=== PATIENT | male | born 1975 | race Hispanic/Latino ===

== ENCOUNTER 2018-11-29 13:02 | Inpatient (IN) | payer BC ==
[2018-11-29 16:14] LABS: Absolute Lymphocytes (CBC) 1.2 K/uL (0.7-4.9); Absolute Monocytes 0.8 K/uL (0.1-1.3); Absolute Neutrophil 9.4 K/uL (1.8-8.0); Basophils % 0.4 % (0-1.3); Eosinophils % 1.1 % (0-4.4); Lymphocytes % 10.6 % (15.3-44.8); MPV 10.6 fL (7.6-11.3); Monocytes % 7.1 % (3.3-12.3); RBC Red Blood Cell Count 4.26 M/uL (4.33-5.43)
[2018-11-29] MEDS ORDERED: HYDROCODONE/APAP 10/325 TAB ONE (16:16)
[2018-11-29] MEDS ORDERED: NA CHLORIDE 0.9% 1,000 ML ONE (16:16)
[2018-11-29 16:32] LABS: Albumin 2.7 g/dL (3.4-5.0); Bilirubin Direct 0.2 mg/dL (0-0.2); Bilirubin Total 0.4 mg/dL (0.2-1.0); Potassium 4.8 mmol/L (3.5-5.1); Protein, Total 7.5 g/dL (6.4-8.2)
--- NOTE | 2018-11-29 17:15 | ER ---
Nurse's Notes [facility] Name: Liu Boo Jr Age: 43 yrs Sex: Male : 1975 Arrival Date: 11/29/2018 Time: 13:04 Bed 18 Private MD: Johny Black Diagnosis: Cellulitis of right lower limb Presentation: 11/29 13:14 Presenting complaint: Patient states: I have an ulcer on my right foot and I see la1 for it. It has been ok but the last 2 days it has looked a lot worse with redness and swelling. Transition of care: patient was not received from another setting of care. Onset of symptoms was November 29, 2018. Risk Assessment: Do you want to hurt yourself or someone else? Patient reports no desire to harm self or others. Initial Sepsis Screen: Does the patient meet any 2 criteria? No. Patient's initial sepsis screen is negative. Does the patient have a suspected source of infection? No. Patient's initial sepsis screen is negative. Care prior to arrival: None. 13:14 Method Of Arrival: Ambulatory la1 13:14 Acuity: LUZ MARINA 3 la1 Historical: - Allergies: 13:15 No Known Allergies; la1 - PMHx: 13:15 Diabetes - NIDDM; la1 - Immunization history:: Adult Immunizations up to date. - Social history:: Smoking status: Patient/guardian denies using tobacco. - Ebola Screening: : No symptoms or risks identified at this time. Screenin:13 Abuse screen: Denies threats or abuse. Denies injuries from another. Nutritional aj1 screening: No deficits noted. Tuberculosis screening: No symptoms or risk factors identified. 18:30 Fall Risk None identified. aj1 Assessment: 15:13 General: Appears in no apparent distress. uncomfortable, Behavior is calm, cooperative, aj1 appropriate for age. Pain: Complains of pain in right foot Pain does not radiate. Pain currently is 7 out of 10 on a pain scale. Neuro: Level of Consciousness is awake, alert, obeys commands, Oriented to person, place, time, situation. Cardiovascular: Patient's skin is warm and dry. Respiratory: Airway is patent Respiratory effort is even, unlabored, Respiratory pattern is regular, symmetrical. GI: No signs and/or symptoms were reported involving the gastrointestinal system. : No signs and/or symptoms were reported regarding the genitourinary system. EENT: No signs and/or symptoms were reported regarding the EENT system. Derm: Skin is flushed, redness and swelling noted to right foot. Musculoskeletal: No signs and/or symptoms reported regarding the musculoskeletal system. Circulation, motion, and sensation intact. 16:10 Reassessment: Patient appears in no apparent distress at this time. No changes from aj1 previously documented assessment. Patient and/or family updated on plan of care and expected duration. Pain level reassessed. Patient is alert, oriented x 3, equal unlabored respirations, skin warm/dry/pink. 17:10 Reassessment: Patient appears in no apparent distress at this time. No changes from aj1 previously documented assessment. Patient and/or family updated on plan of care and expected duration. Pain level reassessed. Patient is alert, oriented x 3, equal unlabored respirations, skin warm/dry/pink. 18:08 Reassessment: Patient appears in no apparent distress at this time. No changes from aj1 previously documented assessment. Patient and/or family updated on plan of care and expected duration. Pain level reassessed. Patient is alert, oriented x 3, equal unlabored respirations, skin warm/dry/pink. Vital Signs: 13:15 BP 149 / 79; Pulse 110; Resp 16; Temp 98.0; Pulse Ox 98% on R/A; Weight 125.19 kg; la1 Height 5 ft. 10 in. (177.80 cm); 16:10 BP 132 / 79; Pulse 85; Resp 18; Pulse Ox 98% on R/A; aj1 17:15 BP 125 / 67; Pulse 88; Resp 18; Pulse Ox 99% on R/A; aj1 18:08 BP 127 / 64; Pulse 92; Resp 18; Pulse Ox 99% on R/A; aj1 13:15 Body Mass Index 39.60 (125.19 kg, 177.80 cm) la1 ED Course: 13:04 Patient arrived in ED. as 13:05 Johny Black MD is Private Physician. as 13:14 Triage completed. la1 13:15 Arm band placed on right wrist. la1 14:53 Liane Griffin RN is Primary Nurse. aj1 15:07 Chinmay Cifuentes NP is PHCP. pm1 15:07 Emanuel Shaffer MD is Attending Physician. pm1 15:13 Patient has correct armband on for positive identification. Bed in low position. Call aj1 light in reach. Side rails up X 1. 15:13 No provider procedures requiring assistance completed. aj1 15:45 First set of blood cultures drawn by me. kj1 15:58 Initial lab(s) drawn, by me, sent to lab. kj1 15:58 Inserted saline lock: 22 gauge in right antecubital area, using aseptic technique. kj1 16:15 Foot Right 3 View XRAY In Process Unspecified. EDMS 17:14 Marielle Monroe MD is Hospitalizing Provider. pm1 17:22 Hospitalizing Provider role handed off by Marielle Monroe MD pm1 17:22 Johny Black MD is Hospitalizing Provider. pm1 18:29 Report given to RICK Pop on 3rd floor. aj1 18:30 Patient admitted, IV remains in place. aj1 Administered Medications: 16:09 Drug: NS 0.9% 1000 ml Route: IV; Rate: 1000 ml; Site: right antecubital; aj1 18:04 Follow up: IV Status: Completed infusion; IV Intake: 1000ml aj1 16:09 Drug: [place] 10 mg-325 mg 1 tabs Route: PO; aj1 18:04 Follow up: Response: No adverse reaction aj1 18:04 Drug: vancoMYCIN 1 grams Route: IVPB; Infused Over: 2 hrs; Site: right antecubital; aj1 18:30 Follow up: IV Status: Infusion continued upon admission aj1 18:04 Drug: LevaQUIN 500 mg Route: PO; aj1 18:30 Follow up: Response: No adverse reaction aj1 Intake: 18:04 IV: 1000ml; Total: 1000ml. aj1 Outcome: 17:14 Decision to Hospitalize by Provider. pm1 18:31 Admitted to Tele accompanied by tech, via wheelchair, with chart. aj1 18:31 Condition: stable 18:31 Discharge instructions given to family, Instructed on the need for admit, Demonstrated understanding of instructions. 18:37 Patient left the ED. aj1 Signatures: Dispatcher [employer] EDMS Liane Griffin RN RN aj1 Lorri Friedman Lee, RN RN la1 Chinmay Cifuentes NP NAIL SPECIALIST pm1 Shabnam Redd kj1
--- NOTE | 2018-11-29 17:15 | EDPHYS ---
Physician Documentation [facility] Name: Liu Boo Jr Age: 43 yrs Sex: Male : 1975 Arrival Date: 11/29/2018 Time: 13:04 Bed 18 Private MD: Johny Black ED Physician Emanuel Shaffer HPI: 11/29 15:30 This 43 yrs old Male presents to ER via Ambulatory with complaints of Foot pm1 Pain - ulcer. 15:30 The patient presents with pain, that is acute, swelling. The complaints affect the pm1 dorsum of right foot. Context: The problem was sustained at home, resulted from an unknown cause, the patient can fully bear weight, the patient is able to ambulate, prior chronic right plantar ulcer for the past 1.5 years. Onset: The symptoms/episode began/occurred 2 day(s) ago. Modifying factors: The symptoms are alleviated by nothing. the symptoms are aggravated by nothing. Associated signs and symptoms: Pertinent negatives calf tenderness, fever. Treatment prior to arrival includes: no previous treatment. Severity of symptoms: in the emergency department the symptoms are actually worse. The patient has not experienced similar symptoms in the past. The patient has not recently seen a physician, the patient's primary care provider is Dr. Black. Saw Dr. Jc 1 month ago and told wound is improving, Has wound care here with Sofia. Patient with redness and swelling to the dorsum on his right foot and right second toe for the past 2 days. Denies trauma. Ulcer to plantar surface of right foot is not worse per patient. Historical: - Allergies: 13:15 No Known Allergies; la1 - PMHx: 13:15 Diabetes - NIDDM; la1 - Immunization history:: Adult Immunizations up to date. - Social history:: Smoking status: Patient/guardian denies using tobacco. - Ebola Screening: : No symptoms or risks identified at this time. ROS: 15:30 Constitutional: Negative for fever, chills, and weight loss, Eyes: Negative for injury, pm1 pain, redness, and discharge, ENT: Negative for injury, pain, and discharge, Neck: Negative for injury, pain, and swelling, Cardiovascular: Negative for chest pain, palpitations, and edema, Respiratory: Negative for shortness of breath, cough, wheezing, and pleuritic chest pain, Abdomen/GI: Negative for abdominal pain, nausea, vomiting, diarrhea, and constipation, Back: Negative for injury and pain, : Negative for injury, bleeding, discharge, and swelling. 15:30 Neuro: Negative for headache, weakness, numbness, tingling, and seizure. 15:30 MS/extremity: Positive for pain, swelling, of the dorsum of right foot. 15:30 Skin: Positive for erythema, swelling, of the dorsum of right foot. Exam: 15:30 Constitutional: This is a well developed, well nourished patient who is awake, alert, pm1 and in no acute distress. Head/Face: Normocephalic, atraumatic. Eyes: Pupils equal round and reactive to light, extra-ocular motions intact. Lids and lashes normal. Conjunctiva and sclera are non-icteric and not injected. Cornea within normal limits. Periorbital areas with no swelling, redness, or edema. ENT: Nares patent. No nasal discharge, no septal abnormalities noted. Tympanic membranes are normal and external auditory canals are clear. Oropharynx with no redness, swelling, or masses, exudates, or evidence of obstruction, uvula midline. Mucous membranes moist. Neck: Trachea midline, no thyromegaly or masses palpated, and no cervical lymphadenopathy. Supple, full range of motion without nuchal rigidity, or vertebral point tenderness. No Meningismus. Chest/axilla: Normal chest wall appearance and motion. Nontender with no deformity. No lesions are appreciated. Cardiovascular: Regular rate and rhythm with a normal S1 and S2. No gallops, murmurs, or rubs. Normal PMI, no JVD. No pulse deficits. Respiratory: Lungs have equal breath sounds bilaterally, clear to auscultation and percussion. No rales, rhonchi or wheezes noted. No increased work of breathing, no retractions or nasal flaring. Abdomen/GI: Soft, non-tender, with normal bowel sounds. No distension or tympany. No guarding or rebound. No evidence of tenderness throughout. Back: No spinal tenderness. No costovertebral tenderness. Full range of motion. 15:30 Skin: Appearance: normal except for affected area, cellulitis, on the dorsum of right foot, Redness, swelling, and warmth to distal aspect of dorsum of right foot and to right second toe. Mild blistering present to medial aspect of right second toe. Vital Signs: 13:15 BP 149 / 79; Pulse 110; Resp 16; Temp 98.0; Pulse Ox 98% on R/A; Weight 125.19 kg; la1 Height 5 ft. 10 in. (177.80 cm); 16:10 BP 132 / 79; Pulse 85; Resp 18; Pulse Ox 98% on R/A; aj1 17:15 BP 125 / 67; Pulse 88; Resp 18; Pulse Ox 99% on R/A; aj1 18:08 BP 127 / 64; Pulse 92; Resp 18; Pulse Ox 99% on R/A; aj1 13:15 Body Mass Index 39.60 (125.19 kg, 177.80 cm) la1 MDM: 15:10 Patient medically screened. [place] 17:04 Data reviewed: vital signs. Data interpreted: Pulse oximetry: on room air is 98 %. pm1 Interpretation: normal. 17:14 Counseling: I had a detailed discussion with the patient and/or guardian regarding: the pm1 historical points, exam findings, and any diagnostic results supporting the discharge/admit diagnosis, lab results, radiology results, the need for further work-up and treatment in the hospital. 17:19 Physician consultation: Marielle Monroe MD was contacted at 17:19, Sofia is taking his pm1 own patient's this weekend. 17:23 Physician consultation: Johny Black MD was called at 17:23, was contacted at 17:23, pm1 regarding admission, patient's condition, and will see patient tomorrow. 11/29 15:30 Order name: Basic Metabolic Panel; Complete Time: 16:38 pm1 11/29 15:30 Order name: Blood Culture Adult (2) pm1 11/29 15:30 Order name: CBC with Diff; Complete Time: 17:03 pm1 11/29 15:30 Order name: LFT's; Complete Time: 16:38 pm1 11/29 15:30 Order name: Procalcitonin; Complete Time: 17:52 pm1 11/29 15:30 Order name: Sed Rate; Complete Time: 17:03 pm1 11/29 15:30 Order name: Labs collected and sent; Complete Time: 15:55 pm1 11/29 15:30 Order name: Foot Right 3 View XRAY; Complete Time: 17:52 pm1 11/29 15:30 Order name: IV Saline Lock; Complete Time: 15:55 pm1 Administered Medications: 16:09 Drug: NS 0.9% 1000 ml Route: IV; Rate: 1000 ml; Site: right antecubital; aj1 18:04 Follow up: IV Status: Completed infusion; IV Intake: 1000ml aj1 16:09 Drug: [place] 10 mg-325 mg 1 tabs Route: PO; aj1 18:04 Follow up: Response: No adverse reaction aj1 18:04 Drug: vancoMYCIN 1 grams Route: IVPB; Infused Over: 2 hrs; Site: right antecubital; aj1 18:30 Follow up: IV Status: Infusion continued upon admission aj1 18:04 Drug: LevaQUIN 500 mg Route: PO; aj1 18:30 Follow up: Response: No adverse reaction aj1 Disposition: 11/29/18 17:14 Hospitalization ordered by Johny Black for Inpatient Admission. Preliminary diagnosis is Cellulitis of right lower limb. - Bed requested for Telemetry/MedSurg (Inpatient). - Status is Inpatient Admission. aj1 - Condition is Stable. - Problem is new. - Symptoms have improved. UTI on Admission? No Addendum: 12/01/2018 07:55 Co-signature as Attending Physician, Emanuel Shaffer MD I agree with the assessment and c marx plan of care. Signatures: Dispatcher [employer] EDMS Liane Griffin RN RN aj1 Emanuel Shaffer MD MD cha Attema, Lee, RN RN la1 Chinmay Cifuentes, COMPLAINT SUPERVISOR COMPLAINT SUPERVISOR pm1 Danica Parker Corrections: (The following items were deleted from the chart) 11/29 17:22 17:14 Hospitalization Ordered by Marielle Monroe MD for Inpatient Admission. Preliminary pm1 diagnosis is Cellulitis of right lower limb. Bed requested for Telemetry/MedSurg (Inpatient). Status is Inpatient Admission. Condition is Stable. Problem is new. Symptoms have improved. UTI on Admission? No. pm1 17:58 17:22 11/29/2018 17:14 Hospitalization Ordered by Johny Black MD for Inpatient eb Admission. Preliminary diagnosis is Cellulitis of right lower limb. Bed requested for Telemetry/MedSurg (Inpatient). Status is Inpatient Admission. Condition is Stable. Problem is new. Symptoms have improved. UTI on Admission? No. pm1 18:37 17:58 11/29/2018 17:14 Hospitalization Ordered by Johny Black MD for Inpatient aj1 Admission. Preliminary diagnosis is Cellulitis of right lower limb. Bed requested for Telemetry/MedSurg (Inpatient). Status is Inpatient Admission. Condition is Stable. Problem is new. Symptoms have improved. UTI on Admission? No. eb
[2018-11-29] MEDS ORDERED: VANCOMYCIN/NS 1 gm 1 GM/250 ML BAG IV ONE (17:30)
--- NOTE | 2018-11-29 17:49 | RAD REPORT ---
EXAM DESCRIPTION: RAD - Foot Right 3 View - 11/29/2018 4:17 pm CLINICAL HISTORY: Right foot pain and swelling, soft tissue wound COMPARISON: December 2017 FINDINGS: No acute fracture is identified. IP joint degenerative changes are present. Degenerative c hanges are present at the first and second MTP joints. There is subluxation of the second proximal ph alanx. Second toe soft tissue swelling is present. Air is present in the soft tissues. This is the pr esumed site of wound. Wound history was not otherwise defined. No foreign body in the soft tissues. N o destructive bone process seen. Midfoot degenerative changes are present. A small plantar spur is se en. IMPRESSION: Soft tissue swelling right second toe with air in the soft tissues. Bony degenerative change without destruction. Osteomyelitis can be present prior to radiographic bone destruction.
[2018-11-29] MEDS ORDERED: levoFLOXacin 500 MG TAB ONE (18:10)
[2018-11-29] MEDS ORDERED: GLUCAGON 1 MG/VIAL IM PRN (18:27)
[2018-11-29] MEDS ORDERED: D50W 25 GM/50 ML SYRINGE IV PRN (18:27)
[2018-11-29] MEDS: NA CHLORIDE 0.9% 1,000 ML IV SCH (19:27)
[2018-11-29 20:08] VITALS: BMI 39.6
[2018-11-29] MEDS: HYDROCODONE/APAP 5/325 MG TAB PO PRN (20:17)
[2018-11-29] MEDS: INSULIN -REGULAR HUMAN 50 UNIT/0.5 ML ML SQ SCH (21:00)
[2018-11-29] MEDS ORDERED: VANCOMYCIN/NS 1 gm 1 GM/250 ML BAG IVPB ONE (21:15)
[2018-11-29] MEDS ORDERED: VANCOMYCIN 1 GM/VIAL ONE (22:18)
[2018-11-29] MEDS ORDERED: NA CHLORIDE 0.9% 250 ML ONE (22:18)
[2018-11-30] MEDS: NA CHLORIDE 0.9% 1,000 ML IV SCH ×2 (05:01→14:27)
[2018-11-30] MEDS: HYDROCODONE/APAP 5/325 MG TAB PO PRN ×3 (05:01→21:11)
[2018-11-30] MEDS ORDERED: VANCOMYCIN 2 GM in NA CHLORIDE 0.9% 500 ML IVPB SCH (06:00)
[2018-11-30 06:17] LABS: Absolute Lymphocytes (CBC) 1.6 K/uL (0.7-4.9); Absolute Monocytes 0.5 K/uL (0.1-1.3); Absolute Neutrophil 4.5 K/uL (1.8-8.0); Basophils % 0.7 % (0-1.3); Hematocrit 33.6 % (39.6-49.0); Lymphocytes % 23.8 % (15.3-44.8); MPV 10.5 fL (7.6-11.3); Monocytes % 7.8 % (3.3-12.3); RBC Red Blood Cell Count 3.75 M/uL (4.33-5.43)
[2018-11-30 06:31] LABS: Potassium 4.4 mmol/L (3.5-5.1)
[2018-11-30] MEDS: INSULIN -REGULAR HUMAN 50 UNIT/0.5 ML ML SQ SCH ×4 (07:30→21:00)
[2018-11-30] MEDS: MUPIROCIN 2% OINT 22GM TUBE TOP SCH (12:31)
[2018-11-30] MEDS: GABAPENTIN 300 MG CAP PO SCH ×2 (13:18→21:11)
[2018-11-30 13:51] LABS: Urine Appearance CLEAR; Urine Bilirubin NEGATIVE (NEG); Urine Blood NEGATIVE (NEG); Urine Color YELLOW; Urine Glucose NEGATIVE (NEG); Urine Protein NEGATIVE (NEG); Urine Specific Gravity 1.015 (1.005-1.030); Urine pH 5.5 (5.0-7.0)
[2018-11-30 14:13] LABS: Urine Microscopic Reflex ORDER UMIC
[2018-11-30 14:16] LABS: Urine Bacteria <20 /HPF (NONE SEEN); Urine RBC NONE SEEN /HPF (NONE SEEN)
[2018-11-30 14:17] LABS: Urine Culture Reflex Order REFLEXED
--- NOTE | 2018-11-30 15:13 | PN ---
Date of Progress Note: 11/30/2018 The patient states he feels better today. Looking at his foot, he thinks it has gone down to some ex tent and certainly the pain is much better. Evaluation does seem to show some ecchymotic and celluli tic area of the toe and anterior part of the foot. We will add Bactrim to the regimen at this signif icant fractures. He had a run of ventricular tachycardia. He said he had some tachycardia night whe n he was vomiting, however, was not aware of this last episode. Cardiology was consulted and workup was in progress. HR/MODL Voice ID: [id number] Report ID: [id number]
--- NOTE | 2018-11-30 15:26 | PN ---
Entrance Complaint: Painful foot. History Of Present Illness: The patient has multiple problems with his foot with diabetic ulceration s requiring frequent hospitalizations, been seen in various Wound Centers, has been under care of [facility], and myself, was last seen in our Wound Center approximately a month ago, which time states he was doing okay. 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 Also it was okay and he had no discomfort until 2 days prior to this episode when he started the p roblem in his foot, which he felt may be a blister forming there that became red, increasing pain. Mir beck presented to the emergency room. Past Medical History: The patient has a long history of NIDDM, which has not been doing good control . However, he underwent a weight reduction surgery and lost over 80 pounds at which time he has done well with his blood sugars on diet and metformin. Also has a history of hypertension, which also marx s improved as well after the surgery. Social History: He states nonsmoker, nondrinker. Family History: Noncontributory. Physical Examination: General: Patient is a well-built middle-aged male in no acute distress with stable vital signs. Head And neck: Normocephalic. Pupils equal react to light and accommodation. Fundi negative. Trac hea midline. Thyroid not palpable. ENT negative. Chest: Clear to P and A. Cardiovascular: PMI midclavicular line. Heart: Sounds normal. Peripheral pulses are present and equal bilaterally. Abdomen: No organomegaly. Bowel sounds present. Extremities: All extremities normal except for the right lower foot, which shows an area of erythema approximately 2 inches distal to the toe, which shows an area of erythema and early blister formatio n on the second digit. Good motion. Rectal: Deferred. Impression: Cellulitis of the foot and toe, diabetic ulcer healing. Plan: Patient will be admitted since he has a long history of MRSA. He will be started on Levaquin and vancomycin, which he states has done some in the past, which has been successful. HR/MODL Voice ID: [id number] Report ID: [id number]
--- NOTE | 2018-11-30 15:43 | CON ---
Mr. Boo is 43. He came to the hospital, because his wound on his right foot seems to be getting worse. He is under outpatient care with Dr. Black and Dr. Choudhury, and care has been ongoing for a year and a half according to the patient, but the wound has not closed and indeed it looked worse. He was not having any symptoms, although he had vomited a few minutes before. He ate a sandwich, imm ediately became nauseated, threw it up, and now feels better. This morning, he is able to tolerate b reakfast; but at the time he was throwing up, he had an 8-beat run of ventricular tachycardia, monomo rphic, self-terminated. Other than that, there is no arrhythmia on telemetry. He has a baseline EKG with a narrow complex sinus rhythm. A 12-lead EKG has not been done yet. Medications: His medications here are gabapentin, glucagon, hydrocodone, insulin, Levaquin, metformi n, vancomycin IV. Allergies: HE HAS NO KNOWN ALLERGIES. Social History: Uses no tobacco. Physical Examination: Vital Signs: 5 feet 10 inches, 276 pounds. General: Obese, alert, oriented, pleasant, not in distress. Lungs: Clear. Cardiac: Normal. Abdomen: Soft. Extremities: Normal. The pulses on his foot are good. There is no diminution or weakness of the pu lse at all. Impression: The patient had ventricular tachycardia, which could be an indication he has underlying heart disease. I have recommended we do an echocardiogram tomorrow and see if there is any weakness of the heart. If his left ventricular ejection fraction is normal and he has had 1 run of ventricular tachycardia around the time he was vomiting, I would not recommend further i nvestigation. BETITO/AYANA Voice ID: [id number] Report ID: [id number]
[2018-11-30] MEDS: VANCOMYCIN 2 GM in NA CHLORIDE 0.9% 500 ML IVPB SCH (16:20)
[2018-11-30] MEDS: METFORMIN HCL 500 MG TAB PO SCH (16:21)
[2018-11-30] MEDS: Levofloxacin500mg IV 500 MG/100 ML BAG IV SCH (17:14)
[2018-11-30] MEDS ORDERED: HOME MED 1 EA UNK (Metformin Hcl [Glucophage] 1 TAB) PO SCH (21:00)
[2018-12-01] MEDS: NA CHLORIDE 0.9% 1,000 ML IV SCH ×4 (00:27→17:07)
[2018-12-01] MEDS: INSULIN -REGULAR HUMAN 50 UNIT/0.5 ML ML SQ SCH ×4 (07:30→21:00)
[2018-12-01] MEDS: METFORMIN HCL 500 MG TAB PO SCH ×2 (09:43→17:06)
[2018-12-01] MEDS: GABAPENTIN 300 MG CAP PO SCH ×3 (09:43→22:25)
[2018-12-01] MEDS: MUPIROCIN 2% OINT 22GM TUBE TOP SCH (09:44)
--- NOTE | 2018-12-01 10:43 | ECHO ---
HEIGHT: 5 ft 10 in WEIGHT: 276 lb 0 oz DATE OF STUDY: 12/01/[address]: Jose Eduardo MD 2-DIMENSIONAL: YES M.MODE: YES DOPPLER: YES COLOR FLOW: YES TDS: NO PORTABLE: NO DEFINITY: NO BUBBLE STUDY: NO DIAGNOSIS: VENTRICULAR TACHYCARDIA CARDIAC HISTORY: CATHERIZATION: SURGERY: PROSTHETIC VALVE: PACEMAKER: MEASUREMENTS (cm) DIASTOLIC (NORMALS) SYSTOLIC (NORMALS) IVSd 1.2 (0.6-1.2) LA Diam 4.3 (1.9-4.0) LVEF 57% LVIDd 4.7 (3.5-5.7) LVIDs 3.3 (2.0-3.5) %FS 30% LVPWd 1.3 (0.6-1.2) Ao Diam 3.3 (2.0-3.7) 2 DIMENSIONAL ASSESSMENT: RIGHT ATRIUM: NORMAL LEFT ATRIUM: DILATED RIGHT VENTRICLE: NORMAL LEFT VENTRICLE: LEFT VENTRICULAR HYPERTROPHY TRICUSPID VALVE: NORMAL MITRAL VALVE: NORMAL PULMONIC VALVE: NORMAL AORTIC VALVE: NORMAL PERICARDIAL EFFUSION: NONE AORTIC ROOT: NORMAL LEFT VENTRICULAR WALL MOTION: NORMAL. DOPPLER/COLOR FLOW: PHYSIOLOGIC TRICUSPID REGURGITATION, NORMAL RIGHT VENTRICULAR SYSTOLIC PRESSURE. COMMENTS: NORMAL LEFT VENTRICULAR EJECTION FRACTION WITH WALL MOTION. LEFT VENTRICULAR HYPERTROPHY. DILATED LEFT ATRIUM. TECHNOLOGIST: HÉCTOR WAGONER
[2018-12-01] MEDS: Levofloxacin500mg IV 500 MG/100 ML BAG IV SCH (17:06)
[2018-12-01] MEDS: VANCOMYCIN 2 GM in NA CHLORIDE 0.9% 500 ML IVPB SCH (18:23)
[2018-12-01] MEDS: HYDROCODONE/APAP 5/325 MG TAB PO PRN (22:25)
[2018-12-02] MEDS: NA CHLORIDE 0.9% 1,000 ML IV SCH ×2 (05:52→16:27)
[2018-12-02] MEDS: INSULIN -REGULAR HUMAN 50 UNIT/0.5 ML ML SQ SCH ×4 (07:30→20:48)
[2018-12-02] MEDS: MUPIROCIN 2% OINT 22GM TUBE TOP SCH (08:28)
[2018-12-02] MEDS: METFORMIN HCL 500 MG TAB PO SCH ×2 (08:28→16:28)
[2018-12-02] MEDS: GABAPENTIN 300 MG CAP PO SCH ×3 (08:28→20:22)
--- NOTE | 2018-12-02 11:37 | EKG ---
Test Date: 2018-11-30 Test Time: 10:29:31 Brand Advisor: LOGAN MEASUREMENT RESULTS: Intervals: Rate: 70 OR: 142 QRSD: 78 QT: 386 QTc: 416 [place]: P: 15 OR: 142 QRS: 44 T: -10 INTERPRETIVE STATEMENTS: Normal sinus rhythm T wave abnormality, consider inferior ischemia Abnormal ECG Compared to ECG 04/30/2017 15:51:07 T-wave abnormality now present Sinus tachycardia no longer present Electronically Signed On 12-01-18 10:52:32 CDT by Jose Eduardo
[2018-12-02] MEDS: TRAMADOL HCL 50 MG TAB PO PRN ×2 (12:57→20:22)
--- NOTE | 2018-12-02 15:25 | PN ---
Date of Progress Note: 12/01/2018 The patient states he feels much better. Awaiting culture, suspect MRSA as he has had this in the [facility]. Continue the present antibiotic treatment until the culture and sensitivity is completed. HR/MODL Voice ID: [id number] Report ID: [id number]
[2018-12-02] MEDS: VANCOMYCIN 2 GM in NA CHLORIDE 0.9% 500 ML IVPB SCH (16:12)
[2018-12-02] MEDS: Levofloxacin500mg IV 500 MG/100 ML BAG IV SCH (18:20)
[2018-12-03] MEDS: NA CHLORIDE 0.9% 1,000 ML IV SCH ×2 (00:34→09:52)
[2018-12-03] MEDS: INSULIN -REGULAR HUMAN 50 UNIT/0.5 ML ML SQ SCH ×3 (07:30→16:30)
[2018-12-03] MEDS: MUPIROCIN 2% OINT 22GM TUBE TOP SCH (09:00)
[2018-12-03] MEDS: GABAPENTIN 300 MG CAP PO SCH ×2 (09:50→14:35)
[2018-12-03] MEDS: METFORMIN HCL 500 MG TAB PO SCH ×2 (09:50→17:15)
[2018-12-03 10:18] VITALS: O2SAT 97
[2018-12-03] MEDS ORDERED: VANCOMYCIN 2 GM in NA CHLORIDE 0.9% 500 ML IVPB SCH (12:00)
[2018-12-03 16:36] VITALS: TEMP 97.8
[2018-12-03 17:59] VITALS: BP 151/88
--- NOTE | 2018-12-03 21:14 | PN ---
Date of Progress Note: 12/02/2018 The patient did culture MRSA which is compatible with what he has cultured all along, possible that h e is a carrier. In any event, the foot looks much better and the wound looks clean. I think he can be discharged after 2 more of his vancomycin dose to be followed up with the Wound Clinic with possib le grafting to the diabetic ulcer site. HR/MODL Voice ID: [id number] Report ID: [id number]
--- NOTE | 2018-12-04 21:09 | DS ---
Date of Discharge: 12/03/2018 The patient's foot continues to improve. We will place him on Wound Center visit for the next day, s o that he can be re-cultured and if in fact the MRSA is eradicated, probability of utilization of ski n graft artificial will be considered. If in fact it is still positive, it probable that the patient is a carrier and address the insurance issue if in fact there is a problem with the addition of norma ficial graft. He will be seen tomorrow in the Wound Center at which time an oral antibiotic will be instituted probably clindamycin as his rest of the cultures are not sensitive to oral medication. Ho wever, there was no sensitivity done to the clindamycin as he reluctant to not use some antibiotics a nd there is still slight amount of erythema on the top of his foot and toe. HR/MODL Voice ID: [id number] Report ID: [id number]
== END 2018-12-03 17:45 | disposition home or self-care (01) | DRG 603 ==
LOC: ER 13:02 → ERHOLD 17:26 → 4TH 18:21
PROVIDERS: ADMIT Family Medicine; ATTEND Family Medicine
DX: L03.115 Cellulitis of right lower limb (principal); I47.2 Ventricular tachycardia; E11.621 Type 2 diabetes mellitus with foot ulcer; L97.519 Non-pressure chronic ulcer of other part of right foot with unspecified severity; Z79.84 Long term (current) use of oral hypoglycemic drugs; B95.62 Methicillin resistant Staphylococcus aureus infection as the cause of diseases classified elsewhere
CPT/HCPCS: 36415; 80048; 80076; 80202; 81003; 81015; 82962; 83735; 84145; 85025; 85652; 87040; 87070; 87077; 87086; 87088; 87186; 87205; 93005; 93306; 96361; 96365; 99285; J3370; J7030

== ENCOUNTER 2019-08-02 21:57 | Emergency (ER) | payer BC ==
--- NOTE | 2019-08-02 22:22 | EDPHYS ---
Physician Documentation [facility] Name: Liu Boo Jr Age: 44 yrs Sex: Male : 1975 Arrival Date: 08/02/2019 Time: 22:01 Bed 5 Private MD: ED Physician Balbir Rascon HPI: 08/02 22:27 This 44 yrs old Male presents to ER via Ambulatory with complaints of Facial la1 Pain. 22:27 Onset: The symptoms/episode began/occurred 3 day(s) ago. Associated signs and symptoms: la1 Pertinent negatives: fever, headache, nasal discharge, sore throat, wheezing. Modifying factors: The patient symptoms are alleviated by nothing, the patient symptoms are aggravated by nothing. The patient has not experienced similar symptoms in the past. The patient has not recently seen a physician. right facial abscess for the last three days. has not been on any antibiotics recenly. Historical: - Allergies: 22:10 No Known Allergies; ak1 - Home Meds: 22:10 metformin 1,000 mg Oral tab 1 tab daily [Active]; gabapentin oral oral [Active]; ak1 - PMHx: 22:10 Diabetes - NIDDM; ak1 - PSHx: 22:11 gastric sleeve; ak1 - Immunization history:: Adult Immunizations up to date, Flu vaccine is not up to date. - Social history:: Smoking status: Patient/guardian denies using tobacco, Patient/guardian denies using alcohol. - Ebola Screening: : No symptoms or risks identified at this time. ROS: 22:28 Constitutional: Negative for fever, chills, and weight loss, Eyes: Negative for injury, la1 pain, redness, and discharge, ENT: Negative for injury, pain, and discharge, Neck: Negative for injury, pain, and swelling, Cardiovascular: Negative for chest pain, palpitations, and edema, Respiratory: Negative for shortness of breath, cough, wheezing, and pleuritic chest pain, Abdomen/GI: Negative for abdominal pain, nausea, vomiting, diarrhea, and constipation, Back: Negative for injury and pain, : Negative for injury, bleeding, discharge, and swelling, MS/Extremity: Negative for injury and deformity. 22:28 Skin: Positive for abscess, of the right corner of mouth. Exam: 22:29 Constitutional: This is a well developed, well nourished patient who is awake, alert, la1 and in no acute distress. Head/Face: Normocephalic, atraumatic. Eyes: Pupils equal round and reactive to light, extra-ocular motions intact. . Periorbital areas with no swelling, redness, or edema. ENT: Nares patent. No nasal discharge, no septal abnormalities noted. Tympanic membranes are normal and external auditory canals are clear. Oropharynx with no redness, swelling, or masses, exudates, or evidence of obstruction, uvula midline. Mucous membranes moist. Neck: Trachea midline, no thyromegaly or masses palpated, and no cervical lymphadenopathy. Supple, full range of motion without nuchal rigidity, or vertebral point tenderness. No Meningismus. Chest/axilla: Normal chest wall appearance and motion. Nontender with no deformity. No lesions are appreciated. Cardiovascular: Regular rate and rhythm with a normal S1 and S2. No gallops, murmurs, or rubs. Normal PMI, no JVD. No pulse deficits. Back: No spinal tenderness. No costovertebral tenderness. Full range of motion. MS/ Extremity: Pulses equal, no cyanosis. Neurovascular intact. Full, normal range of motion. Vital Signs: 22:07 BP 166 / 87; Pulse 78; Resp 18; Temp 97.9(O); Pulse Ox 99% on R/A; Weight 107.5 kg (R); ak1 Height 5 ft. 10 in. (177.80 cm) (R); Pain 8/10; 22:26 BP 147 / 82; Pulse 75; Resp 18; Pulse Ox 99% on R/A; ak1 22:07 Body Mass Index 34.01 (107.50 kg, 177.80 cm) ak1 MDM: 22:09 Patient medically screened. la1 22:20 Data reviewed: vital signs, nurses notes, I have discussed the patient's la1 presentation/case with the attending Emergency Department Physician; and as a result, I will discharge patient. Data interpreted: Pulse oximetry: on room air is 99 %. Interpretation: normal. Counseling: I had a detailed discussion with the patient and/or guardian regarding: the historical points, exam findings, and any diagnostic results supporting the discharge/admit diagnosis. ED course: Assessed abscessed area by palpation and with ultrasound, felt and appeared indurated without fluctuance. Will place pt on oral abx and give strict return precautions. 22:30 ED course: No submandibular swelling or erythema, no sublingual edema. . la1 Administered Medications: 22:24 Drug: Clindamycin 300 mg Route: PO; ak1 22:24 Follow up: Response: No adverse reaction ak1 22:24 Drug: Spencer (7.5 mg-325 mg) 1 tabs Route: PO; ak1 22:24 Follow up: Response: Medication administered at discharge. ak1 Disposition: 08/03 06:04 Co-signature as Attending Physician, Balbir Rascon MD I agree with the assessment and tw4 plan of care. Disposition: 08/02/19 22:22 Discharged to Home. Impression: Cutaneous abscess of face. - Condition is Stable. - Discharge Instructions: Skin Abscess. - Prescriptions for Clindamycin HCl 300 mg Oral Capsule - take 1 capsule by ORAL route every 6 hours for 10 days; 40 capsule. Tylenol- Codeine #3 300-30 mg Oral Tablet - take 2 tablet by ORAL route every 6 hours As needed; 6 tablet. - Medication Reconciliation Form, Thank You Letter, Antibiotic Education form. - Follow up: Private Physician; When: 2 - 3 days; Reason: Recheck today's complaints, Re-evaluation by your physician. - Problem is new. - Symptoms are unchanged. Signatures: Matheus Hurst, WEBSPHERE PORTAL DEVELOPER-C WEBSPHERE PORTAL DEVELOPER-Cla1 Sharonda Reyes, RN RN ak1 Balbir Rascon MD MD tw4 Corrections: (The following items were deleted from the chart) 08/02 22:30 22:22 08/02/2019 22:22 Discharged to Home. Impression: Cutaneous abscess of face. ak1 Condition is Stable. Forms are Medication Reconciliation Form, Thank You Letter, Antibiotic Education, Prescription Opioid Use. Follow up: Private Physician; When: 2 - 3 days; Reason: Recheck today's complaints, Re-evaluation by your physician. Problem is new. Symptoms are unchanged. la1
--- NOTE | 2019-08-02 22:22 | ER ---
Nurse's Notes [facility] Name: Liu Boo Jr Age: 44 yrs Sex: Male : 1975 Arrival Date: 08/02/2019 Time: 22:01 Bed 5 Private MD: Diagnosis: Cutaneous abscess of face Presentation: 08/02 22:08 Presenting complaint: Patient states: abscess to right side of mouth X3 days [employer]. pt ak1 stated the abscess has increased in size. Transition of care: patient was not received from another setting of care. Onset of symptoms is unknown. Risk Assessment: Do you want to hurt yourself or someone else? Patient reports no desire to harm self or others. Initial Sepsis Screen: Does the patient meet any 2 criteria? No. Patient's initial sepsis screen is negative. Does the patient have a suspected source of infection? No. Patient's initial sepsis screen is negative. Care prior to arrival: None. 22:08 Method Of Arrival: Ambulatory ak1 22:08 Acuity: LUZ MARINA 4 ak1 Triage Assessment: 22:11 General: Appears in no apparent distress. Behavior is calm, cooperative. Pain: ak1 Complains of pain in right corner of mouth. EENT: Oral mucosa is moist. abscess to right bottom corner of mouth. Neuro: Level of Consciousness is awake, alert, obeys commands, Oriented to person, place, time, situation, Applicator Sprayer are equal bilaterally Moves all extremities. Full function. Cardiovascular: No deficits noted. Respiratory: Airway is patent Respiratory effort is even, unlabored, Respiratory pattern is regular, symmetrical, Breath sounds are clear bilaterally. GI: No signs and/or symptoms were reported involving the gastrointestinal system. : No signs and/or symptoms were reported regarding the genitourinary system. Derm: Abscess located on right corner of mouth. Musculoskeletal: No signs and/or symptoms reported regarding the musculoskeletal system. Historical: - Allergies: 22:10 No Known Allergies; ak1 - Home Meds: 22:10 metformin 1,000 mg Oral tab 1 tab daily [Active]; gabapentin oral oral [Active]; ak1 - PMHx: 22:10 Diabetes - NIDDM; ak1 - PSHx: 22:11 gastric sleeve; ak1 - Immunization history:: Adult Immunizations up to date, Flu vaccine is not up to date. - Social history:: Smoking status: Patient/guardian denies using tobacco, Patient/guardian denies using alcohol. - Ebola Screening: : No symptoms or risks identified at this time. Screenin:12 Abuse screen: Denies threats or abuse. Denies injuries from another. Nutritional ak1 screening: No deficits noted. Tuberculosis screening: No symptoms or risk factors identified. Fall Risk None identified. Assessment: 22:25 Reassessment: Patient appears in no apparent distress at this time. No changes from ak1 previously documented assessment. Patient and/or family updated on plan of care and expected duration. Pain level reassessed. Patient is alert, oriented x 3, equal unlabored respirations, skin warm/dry/pink. see triage assessment. Vital Signs: 22:07 BP 166 / 87; Pulse 78; Resp 18; Temp 97.9(O); Pulse Ox 99% on R/A; Weight 107.5 kg (R); ak1 Height 5 ft. 10 in. (177.80 cm) (R); Pain 8/10; 22:26 BP 147 / 82; Pulse 75; Resp 18; Pulse Ox 99% on R/A; ak1 22:07 Body Mass Index 34.01 (107.50 kg, 177.80 cm) ak1 ED Course: 22:01 Patient arrived in ED. ds1 22:07 Sharonda Reyes, RN is Primary Nurse. ak1 22:07 Arm band placed on Patient placed in an exam room, on a stretcher, on pulse oximetry, ak1 Patient notified of wait time. 22:09 Triage completed. ak1 22:09 Matheus Hurst FNP-C is [facility]. la1 22:09 Balbir Rascon MD is Attending Physician. la1 22:12 Patient has correct armband on for positive identification. Bed in low position. Call ak1 light in reach. Side rails up X 1. Adult w/ patient. Pulse ox on. NIBP on. 22:25 No provider procedures requiring assistance completed. Patient did not have IV access ak1 during this emergency room visit. Administered Medications: 22:24 Drug: Clindamycin 300 mg Route: PO; ak1 22:24 Follow up: Response: No adverse reaction ak1 22:24 Drug: Temple (7.5 mg-325 mg) 1 tabs Route: PO; ak1 22:24 Follow up: Response: Medication administered at discharge. ak1 Outcome: 22:22 Discharge ordered by . la1 22:25 Condition: stable ak1 22:30 Discharged to home ambulatory, with family. ak1 22:30 Discharge instructions given to patient, family, Instructed on discharge instructions, follow up and referral plans. no drinking with medication, no driving heavy equipment, medication usage, wound care, Demonstrated understanding of instructions, follow-up care, medications, wound care, Prescriptions given X 2. 22:30 Patient left the ED. ak1 Signatures: Lalitha Pretty ds1 Matheus Hurst, ANIMAL ATTENDANTS AND TRAINERS-C ANIMAL ATTENDANTS AND TRAINERS-Cla1 Sharonda Reyes, RN RN ak1
[2019-08-02] MEDS ORDERED: CLINDAMYCIN HCL 150 MG CAP ONE (22:24)
[2019-08-02] MEDS ORDERED: HYDROCODONE/APAP 7.5/325 MG TAB ONE (22:24)
[2019-08-03 03:29] VITALS: TEMP 97.9; O2SAT 99
[2019-08-03 03:31] VITALS: BP 147/82
== END 2019-08-02 22:30 | disposition home or self-care (01) ==
LOC: ER 21:57
DX: L02.01 Cutaneous abscess of face (principal); E11.9 Type 2 diabetes mellitus without complications
CPT/HCPCS: 99283

== ENCOUNTER 2020-08-12 21:53 | Inpatient (IN) | payer BC ==
[2020-08-12] MEDS ORDERED: VANCOMYCIN 1 GM/VIAL ONE (22:43)
[2020-08-12] MEDS ORDERED: NA CHLORIDE 0.9% 250 ML ONE (22:43)
[2020-08-12] MEDS ORDERED: CEFEPIME/SWI 1gm 10 ML ONE (22:43)
--- NOTE | 2020-08-12 22:55 | EDPHYS ---
Physician Documentation [facility] Name: Liu Boo Jr Age: 45 yrs Sex: Male : 1975 Arrival Date: 08/12/2020 Time: 21:55 Bed 2 Private MD: ED Physician Dameon Mckay HPI: 08/12 22:30 This 45 yrs old Male presents to ER via Ambulatory with complaints of Blister cp On Foot. 22:30 The patient presents with pain, that is acute, swelling. The complaints affect the cp dorsum of left foot. 22:30 Context: resulted from an unknown cause. Onset: The symptoms/episode began/occurred 1 cp month(s) ago, and became worse 2 day(s) ago. Associated signs and symptoms: Pertinent positives: calf tenderness, swelling, warmth, Pertinent negatives fever. Historical: - Allergies: 22:04 No Known Allergies; ll1 - PMHx: 22:04 Diabetes - NIDDM; ll1 - PSHx: 22:04 gastric sleeve; ll1 - Immunization history:: Flu vaccine is not up to date. - Social history:: Smoking status: Patient denies any tobacco usage or history of. ROS: 22:35 Constitutional: Negative for body aches, chills, fever, poor PO intake. cp 22:35 Cardiovascular: Negative for chest pain, palpitations. cp 22:35 Respiratory: Negative for cough. 22:35 Abdomen/GI: Negative for abdominal pain. 22:35 MS/extremity: Positive for erythema, pain, swelling, of the left foot. 22:35 Neuro: Negative for altered mental status, headache. 22:35 All other systems are negative. Exam: 22:40 Constitutional: The patient appears in no acute distress, alert, awake, cp non-diaphoretic, non-toxic, well developed, well nourished. 22:40 Head/Face: Normocephalic, atraumatic. cp 22:40 Eyes: Periorbital structures: appear normal, Conjunctiva: normal, no exudate, no injection, Sclera: no appreciated abnormality, Lids and lashes: appear normal, bilaterally. 22:40 Chest/axilla: Inspection: normal. 22:40 Cardiovascular: Rate: normal. 22:40 Respiratory: the patient does not display signs of respiratory distress, Respirations: normal, no use of accessory muscles, no retractions, labored breathing, is not present, Breath sounds: are clear throughout, no decreased breath sounds, no wheezing. 22:40 Abdomen/GI: Inspection: abdomen appears normal, Palpation: abdomen is soft and non-tender, in all quadrants. 22:40 Skin: pressure ulcer noted plantar surface of left foot with mild purulent drainage, erythema and swelling. 22:40 Neuro: Orientation: to person, place \T\ time. Mentation: is normal. Vital Signs: 22:05 BP 136 / 74; Pulse 79; Resp 16; Temp 98.5; Pulse Ox 97% ; Weight 96.16 kg; Height 5 ft. ll1 11 in. (180.34 cm); Pain 8/10; 23:53 BP 106 / 66; Pulse 66; Resp 18; Pulse Ox 100% on R/A; ea 08/13 01:06 BP 118 / 75; Pulse 74; Resp 18; Pulse Ox 97% on R/A; ea 08/12 22:05 Body Mass Index 29.57 (96.16 kg, 180.34 cm) ll1 MDM: 08/12 22:03 Patient medically screened. 22:30 Differential diagnosis: cellulitis, osteomyelitis, abscess, sepsis. 23:00 Physician consultation: Martin BOWDEN was contacted at 22:40, regarding admission, to the medical/surgical unit. patient's condition, and will see patient in ED, shortly. 23:36 Data reviewed: vital signs, nurses notes, lab test result(s), radiologic studies, plain cp films, ultrasound. Test interpretation: by ED physician or midlevel provider: xrays of left foot negative for fracture. 08/12 22:25 Order name: Procalcitonin; Complete Time: 23:47 08/12 23:47 Interpretation: Procalcitonin 0.25; Reviewed. 08/12 22:25 Order name: Lactate; Complete Time: 23:16 08/12 22:25 Order name: ESR; Complete Time: 23:47 08/12 23:47 Interpretation: Abnormal: SED 32. 08/12 22:25 Order name: CRP; Complete Time: 23:16 08/12 22:25 Order name: Basic Metabolic Panel; Complete Time: 23:16 08/12 23:17 Interpretation: Normal except: GLUC 115; BUN 27; CRE 1.51; GFR 50; CA 8.3. cp 08/12 22:25 Order name: CBC with Diff; Complete Time: 23:47 cp 08/12 23:34 Interpretation: Normal except: WBC 18.3; RBC 3.63; HGB 10.7; HCT 31.9; MPV 11.4; HEIKE% cp 86.6; LYM% 6.1; NEUT A 15.8. 08/12 22:25 Order name: LFT's; Complete Time: 23:16 cp 18 23:17 Interpretation: Normal except: ALK 127; ALB 2.7; GLOB 4.1; A/G 0.7. cp 08/12 22:25 Order name: Magnesium; Complete Time: 23:16 cp 08/12 22:25 Order name: PT-INR; Complete Time: 23:16 08/12 22:25 Order name: Blood Culture Adult (2) 08/12 22:25 Order name: Wound Culture 08/12 23:24 Order name: Manual Differential; Complete Time: 23:47 EDMS 08/12 23:47 Interpretation: Normal except: SEGS 81; BANDS [F] 4; LYM 7. cp 08/13 00:36 Order name: Basic Metabolic Panel EDMS 08/12 22:25 Order name: XRAY Foot LEFT 3 View 08/12 22:25 Order name: Extremity Venous Unilateral Ltd 08/12 22:25 Order name: EKG; Complete Time: 22:26 08/12 22:53 Order name: LE Artery Uni Ltd cp 08/13 00:36 Order name: Basic Metabolic Panel EDMS 08/13 00:36 Order name: CBC with Automated Diff EDMS 08/13 00:36 Order name: CBC with Automated Diff EDMS 08/13 01:06 Order name: SARS-COV-2 RT PCR EDMS 08/12 22:25 Order name: Cardiac monitoring; Complete Time: 23:58 08/12 22:25 Order name: EKG - Nurse/Tech; Complete Time: 23:59 08/12 22:25 Order name: IV Saline Lock; Complete Time: 23:59 08/12 22:25 Order name: Labs collected and sent; Complete Time: 23:59 08/12 22:25 Order name: O2 Per Protocol; Complete Time: 23:59 cp 08/12 22:25 Order name: O2 Sat Monitoring; Complete Time: 23:58 cp 08/13 00:10 Order name: CONS Physician Consult EDMS 08/13 00:36 Order name: CONS Pharmacy Consult EDMS 08/13 00:36 Order name: CONS Pharmacy Consult EDMS 08/13 00:36 Order name: NPO EDMS Administered Medications: 22:30 Drug: Cefepime 1 grams {Note: 10 ml preparation given slow IV push.} Route: IVPB; Rate: rr5 200 ml/hr; Infused Over: 30 mins; Site: right antecubital; 23:30 Follow up: Response: No adverse reaction; IV Status: Completed infusion ea 22:40 Dru grams of (vancoMYCIN 1 grams, NS 0.9% 250 ml) Route: IVPB; Infused Over: 2 hrs; rr5 Site: right antecubital; 08/13 00:45 Follow up: Response: No adverse reaction; IV Status: Completed infusion; IV Intake: rr5 250ml 08/12 22:57 Not Given (Physician Discretion): morphine 4 mg IVP once; RASS on ADMIN: Combtv4, Very cp Agttd3, Agttd2, Rstlss1, AlertClm0, Drwsy-1, Lt Sdtn-2, Mod Sdtn-3, Dp Sdtn-4, UnArsble-5 23:07 Drug: Zofran (Ondansetron) 4 mg Route: IVP; Site: right antecubital; ea 23:48 Follow up: Response: No adverse reaction ea 23:07 Drug: fentaNYL (PF) 25 mcg {Note: rass 0.} Route: IVP; Site: right antecubital; ea 08/13 00:07 Follow up: Response: No adverse reaction; Pain is decreased; RASS: Alert and Calm (0) ea 08/12 23:47 Drug: NS 0.9% 1000 ml Route: IV; Rate: 125 ml/hr; Site: right antecubital; ea 08/13 01:08 Follow up: Response: No adverse reaction; IV Status: Completed infusion ea 08/12 23:48 Drug: NS 0.9% 1000 ml Route: IV; Rate: 1 bolus; Site: right antecubital; ea 08/13 00:36 Follow up: Response: No adverse reaction; IV Status: Completed infusion; IV Intake: ea 1000ml 00:07 Drug: fentaNYL (PF) 25 mcg Route: IVP; Site: right antecubital; ea 00:51 Follow up: Response: No adverse reaction; RASS: Alert and Calm (0) ea Disposition: 08/12 23:15 Chart complete. cp 08/13 03:29 Co-signature as Attending Physician, Dameon Mckay MD. 7 Disposition: 08/12/20 22:55 Hospitalization ordered by Wu Montano for Inpatient Admission. Preliminary diagnosis is Cellulitis of left lower limb. - Bed requested for Telemetry/MedSurg (Inpatient). - Status is Inpatient Admission. ea - Condition is Stable. - Problem is new. - Symptoms have improved. Signatures: Dispatcher [employer] EDOK Alix Cabral RN RN mw Page, Corey, PA PA cp Antunez, Elena, RN RN ea Roque, Raymond, RN RN rr5 Mitch Fortune RN RN [facility] Dameon Mckay MD MD [facility] Corrections: (The following items were deleted from the chart) 08/12 23:17 23:16 Normal except: GLUC 115; BUN 27; CRE 1.51; GFR 50. cp cp 23:25 22:55 Hospitalization Ordered by Wu Montano for Inpatient Admission. Preliminary mw diagnosis is Cellulitis of left lower limb. Bed requested for Telemetry/MedSurg (Inpatient). Status is Inpatient Admission. Condition is Stable. Problem is new. Symptoms have improved. cp 08/13 00:02 08/12 23:24 CORONAVIRUS+MR.LAB.BRZ ordered. EDOK EDMS 08/13 00:35 00:19 NPO ordered. EDOK EDMS 01:07 08/12 23:25 08/12/2020 22:55 Hospitalization Ordered by Wu Montano for Inpatient ea Admission. Preliminary diagnosis is Cellulitis of left lower limb. Bed requested for Telemetry/MedSurg (Inpatient). Status is Inpatient Admission. Condition is Stable. Problem is new. Symptoms have improved. mw
--- NOTE | 2020-08-12 22:55 | ER ---
Nurse's Notes [facility] Name: Liu Boo Jr Age: 45 yrs Sex: Male : 1975 Arrival Date: 08/12/2020 Time: 21:55 Bed 2 Private MD: Diagnosis: Cellulitis of left lower limb Presentation: 08/12 22:05 Chief complaint: Patient states: Noticed a blister to the bottom of his left foot on ll1 Saturday after work. States there was a foul odor when the blister popped. Pain and redness to site since Saturday. No fever at home. Coronavirus screen: Client denies travel out of the [place] in the last 14 days. At this time, the client does not indicate any symptoms associated with coronavirus-19. Ebola Screen: Patient denies travel to an Ebola-affected area in the 21 days before illness onset. Initial Sepsis Screen: Does the patient meet any 2 criteria? No. Patient's initial sepsis screen is negative. Does the patient have a suspected source of infection? Yes: Skin breakdown/wound. Risk Assessment: Do you want to hurt yourself or someone else? Patient reports no desire to harm self or others. Onset of symptoms was August 10, 2020. 22:05 Method Of Arrival: Ambulatory ll1 22:05 Acuity: LUZ MARINA 3 ll1 Triage Assessment: 22:02 General: Appears in no apparent distress. Behavior is appropriate for age. Pain: Denies ea pain. Neuro: Level of Consciousness is awake, alert, obeys commands, Oriented to person, place, time, situation. Respiratory: Airway is patent Respiratory effort is even, unlabored, Respiratory pattern is regular, symmetrical. Historical: - Allergies: 22:04 No Known Allergies; ll1 - PMHx: 22:04 Diabetes - NIDDM; ll1 - PSHx: 22:04 gastric sleeve; ll1 - Immunization history:: Flu vaccine is not up to date. - Social history:: Smoking status: Patient denies any tobacco usage or history of. Screenin:01 Abuse screen: Denies threats or abuse. Nutritional screening: No deficits noted. ea Tuberculosis screening: No symptoms or risk factors identified. Fall Risk None identified. Assessment: 22:05 General: Appears in no apparent distress. Behavior is appropriate for age. Pain: ea Complains of pain in ball of left foot and arch of left foot. Neuro: Level of Consciousness is awake, alert, obeys commands, Oriented to person, place, time, situation. Cardiovascular: Patient's skin is warm and dry. redness and swelling noted to left lower extremity. Respiratory: Airway is patent Respiratory effort is even, unlabored, Respiratory pattern is regular, symmetrical. Derm: Skin is pink, warm \T\ dry. Diabetic ulcers noted ball of left foot approx 1.5 to 2.5 cm in size and arch of left foot approx 7.6 to 15 cm in size. Slough noted to arch of left foot. Musculoskeletal: Circulation, motion, and sensation intact. 08/13 00:27 Reassessment: Patient and/or family updated on plan of care and expected duration. Pain ea level reassessed. Patient is alert, oriented x 3, equal unlabored respirations, skin warm/dry/pink. Awaiting on covid results. 01:06 Reassessment: Covid negative. Pt admitted to second floor, Pt left ED via wheelchair ea per tech. Pt tolerating well. Vital Signs: 08/12 22:05 BP 136 / 74; Pulse 79; Resp 16; Temp 98.5; Pulse Ox 97% ; Weight 96.16 kg; Height 5 ft. ll1 11 in. (180.34 cm); Pain 8/10; 23:53 BP 106 / 66; Pulse 66; Resp 18; Pulse Ox 100% on R/A; ea 08/13 01:06 BP 118 / 75; Pulse 74; Resp 18; Pulse Ox 97% on R/A; ea 08/12 22:05 Body Mass Index 29.57 (96.16 kg, 180.34 cm) ll1 ED Course: 08/12 21:55 Patient arrived in ED. cl3 21:57 Emanuel Morrell PA is PHCP. cp 21:57 Dameon Mckay MD is Attending Physician. cp 22:01 Katheryn Samano, RICK is Primary Nurse. ea 22:01 Patient has correct armband on for positive identification. Bed in low position. Call ea light in reach. Side rails up X 1. Pulse ox on. NIBP on. 22:02 Arm band placed on Patient placed in an exam room, on a stretcher, on pulse oximetry. ea 22:06 Triage completed. ll1 22:48 XRAY Foot LEFT 3 View In Process Unspecified. EDMS 22:53 Wu Montano is Hospitalizing Provider. cp 23:51 No provider procedures requiring assistance completed. Patient admitted, IV remains in ea place. 23:54 COVID swab sent to lab. rr5 08/13 00:10 US Extremity Venous Unilateral Ltd In Process Unspecified. EDMS 00:10 US LE Artery Uni Ltd In Process Unspecified. EDMS Administered Medications: 08/12 22:30 Drug: Cefepime 1 grams {Note: 10 ml preparation given slow IV push.} Route: IVPB; Rate: rr5 200 ml/hr; Infused Over: 30 mins; Site: right antecubital; 23:30 Follow up: Response: No adverse reaction; IV Status: Completed infusion ea 22:40 Dru grams of (vancoMYCIN 1 grams, NS 0.9% 250 ml) Route: IVPB; Infused Over: 2 hrs; rr5 Site: right antecubital; 08/13 00:45 Follow up: Response: No adverse reaction; IV Status: Completed infusion; IV Intake: rr5 250ml 08/12 22:57 Not Given (Physician Discretion): morphine 4 mg IVP once; RASS on ADMIN: Combtv4, Very cp Agttd3, Agttd2, Rstlss1, AlertClm0, Drwsy-1, Lt Sdtn-2, Mod Sdtn-3, Dp Sdtn-4, UnArsble-5 23:07 Drug: Zofran (Ondansetron) 4 mg Route: IVP; Site: right antecubital; ea 23:48 Follow up: Response: No adverse reaction ea 23:07 Drug: fentaNYL (PF) 25 mcg {Note: rass 0.} Route: IVP; Site: right antecubital; ea 08/13 00:07 Follow up: Response: No adverse reaction; Pain is decreased; RASS: Alert and Calm (0) ea 08/12 23:47 Drug: NS 0.9% 1000 ml Route: IV; Rate: 125 ml/hr; Site: right antecubital; ea 08/13 01:08 Follow up: Response: No adverse reaction; IV Status: Completed infusion ea 08/12 23:48 Drug: NS 0.9% 1000 ml Route: IV; Rate: 1 bolus; Site: right antecubital; ea 08/13 00:36 Follow up: Response: No adverse reaction; IV Status: Completed infusion; IV Intake: ea 1000ml 00:07 Drug: fentaNYL (PF) 25 mcg Route: IVP; Site: right antecubital; ea 00:51 Follow up: Response: No adverse reaction; RASS: Alert and Calm (0) ea Intake: 00:36 IV: 1000ml; Total: 1000ml. ea 00:45 IV: 250ml; Total: 1250ml. rr5 Outcome: 08/12 22:55 Decision to Hospitalize by Provider. cp 23:51 Instructed on the need for admit, Demonstrated understanding of instructions. ea 08/13 01:05 Admitted to Med/surg accompanied by tech, via wheelchair, room 216, with chart, Report ea called to Receiving nurse on second floor Condition: stable 01:07 Patient left the ED. ea Signatures: Dispatcher [employer] EDMS Emanuel Morrell PA PA cp Antunez, Elena, RN RN Dante Echavarria RN RN rr5 Yue Fortune 3 Mitch Fortune RN RN ll1 Corrections: (The following items were deleted from the chart) 00:57 08/12 22:05 Derm: Skin is pink, warm \T\ dry. ea ea
[2020-08-12 23:00] LABS: Protime INR 1.2
[2020-08-12] MEDS ORDERED: MORPHINE 4 MG/ML SYR ONE (23:03)
[2020-08-12] MEDS ORDERED: ONDANSETRON 4 MG/2 ML VIAL ONE (23:03)
[2020-08-12 23:05] LABS: Absolute Lymphocytes (CBC) 1.1 K/uL (0.7-4.9); Basophils % 0.4 % (0-1.3); Hematocrit 31.9 % (39.6-49.0); Lymphocytes % 6.1 % (15.3-44.8); MPV 11.4 fL (7.6-11.3); RBC Red Blood Cell Count 3.63 M/uL (4.33-5.43)
[2020-08-12 23:13] LABS: Albumin 2.7 g/dL (3.4-5.0); Bilirubin Direct 0.2 mg/dL (0-0.2); Bilirubin Total 0.4 mg/dL (0.2-1.0); Magnesium 2.4 mg/dL (1.8-2.4); Potassium 3.6 mmol/L (3.5-5.1); Protein, Total 6.8 g/dL (6.4-8.2)
[2020-08-12] MEDS ORDERED: FENTANYL CITR 100 MCG/2 ML ONE (23:14)
[2020-08-12 23:37] LABS: Blood Morphology Comment NOT SEEN (NOT SEEN); Platelet Estimate ADEQ; Platelets, Giant SEEN
[2020-08-12] MEDS ORDERED: NA CHLORIDE 0.9% 2,000 ML ONE (23:55)
[2020-08-13] MEDS ORDERED: ACETAMINOPHEN 500 MG TAB PO PRN (00:35)
[2020-08-13] MEDS ORDERED: NA CHLORIDE 0.9% 1,000 ML IV SCH (01:00)
--- NOTE | 2020-08-13 01:50 | P.HP ---
Certification for Inpatient Patient admitted to: Inpatient With expected LOS: >2 Midnights Patient will require the following post-hospital care: None Practitioner: I am a practitioner with admitting privileges, knowledge of patient current condition, hospital course, and medical plan of care. Services: Services provided to patient in accordance with Admission requirements found in Title 42 Section 412.3 of the Code of Federal Regulations <Jozef Monroy - Last Filed: 08/13/20 01:45> Patient History Date of Service: 08/13/20 Primary Care Provider: none Reason for admission: Cellulitis Left foot, Open wound left foot History of Present Illness: This is a 45-year-old male with a history of zvz-midvimn-rcwmmzlon diabetes mellitus that presented to the emergency room today after having increased foot pain with redness swelling and foul smelling discharge of the left foot. Patient stated that he has been treated in the past for an open wound to the left foot at the ball of the foot 1st MTP level. Stated that for the past couple of days he has noticed a blister more towards the forefoot that had popped and now having increased redness swelling and discharge that is foul- smelling in nature. Patient was worked up in the emergency room and found to have a 18,000 white cell count with an elevated pro calcitonin. Lactate was normal. The remainder of his CBC was stable. The sodium was 139, potassium 3.6, chloride 107, bicarb 25, BUN 27, creatinine 1.51, glucose 115. Patient was put on antibiotics in the emergency room in medicine was consulted for admission. General surgery was also consulted and patient will be going to the operating room in the morning for surgical debridement. - Past Medical/Surgical History Has patient received pneumonia vaccine in the past: No Diabetic: Yes -: Diabetes -: HTN -: meningitis -: gastric sleeve - Family History Father -: Heart disease, Diabetes - Social History Smoking Status: Never smoker Smoking therapy provided: No Alcohol use: No CD- Drugs: No Caffeine use: Yes Place of Residence: Home <BerkleyindiraJozef - Last Filed: 08/13/20 01:45> Date of Service: 08/13/20 - Family History Father -: Heart disease, Diabetes Brother -: Cancer, Other (see notes) Notes: Stomach cancer <claudia rivera - Last Filed: 08/13/20 13:11> Allergies No Known Allergies Allergy (Verified 08/13/20 02:00) Home Medications: Gabapentin 1 tab PO TID 11/29/18 Metformin HCl [Glucophage] 1 tab PO BID 11/29/18 Review of Systems General: Unremarkable Eyes: Unremarkable ENT: Unremarkable Respiratory: Unremarkable Cardiovascular: Unremarkable Gastrointestinal: Unremarkable Genitourinary: Unremarkable Musculoskeletal: As per HPI Integumentary: As per HPI Neurological: Unremarkable Lymphatics: Unremarkable <Jozef Monroy - Last Filed: 08/13/20 01:45> Physical Examination - Vital Signs Temperature: 98.5 F Blood Pressure: 136/74 Pulse: 79 Respirations: 18 Pulse Ox (%): 97 (Room air) - Physical Exam General: Alert, In no apparent distress, Oriented x3, Cooperative HEENT: PERRLA, Mucous membr. moist/pink, EOMI Neck: Supple, 2+ carotid pulse no bruit, JVD not distended, No Thyromegaly Respiratory: Clear to auscultation bilaterally, Normal air movement Cardiovascular: No edema, Normal pulses, Regular rate/rhythm, Normal S1 S2, No gallops, No rubs, No murmurs Capillary refill: <2 Seconds Gastrointestinal: Normal bowel sounds, Soft and benign, Non-distended, No ascites, No tenderness, No masses, No rebound, No guarding Musculoskeletal: No clubbing, No contractures, Swelling, Erythema, Tenderness, Warmth, Other (Erythema, swelling, tenderness, warmth noted to the left medial and dorsal foot with extension to the ankle and swelling extending up through the mid calf) Integumentary: Other (Patient has 2 open wounds to the bottom of the foot. With the 1st 1 is over the ball of the 1st MTP. No discharge erythema is noted. Healthy-looking granulation tissue noted. The 2nd is a large ulcerative open wound to the midfoot with foul-smelling as sharp and drainage.) Neurological: Normal speech, Normal strength at 5/5 x4 extr, Normal tone, Cranial nerves 3-12 intact, Normal affect, Abnormal sensation (Left foot) Lymphatics: No axilla or inguinal lymphadenopathy - Studies Laboratory Data (last 24 hrs) 08/12/20 22:30: PT 14.1 H, INR 1.20 08/12/20 22:30: Sodium 139, Potassium 3.6, BUN 27 H, Creatinine 1.51 H, Glucose 115 H, Magnesium 2.4 D, Total Bilirubin 0.4, AST 30, ALT 36, Alkaline Phosphatase 127 H 08/12/20 22:30: WBC 18.3 H, Hgb 10.7 L, Hct 31.9 L, Plt Count 254 <Jozef Monroy - Last Filed: 08/13/20 01:45> - Studies Laboratory Data (last 24 hrs) 08/12/20 22:30: PT 14.1 H, INR 1.20 08/12/20 22:30: Sodium 139, Potassium 3.6, BUN 27 H, Creatinine 1.51 H, Glucose 115 H, Magnesium 2.4 D, Total Bilirubin 0.4, AST 30, ALT 36, Alkaline Phosphatase 127 H 08/12/20 22:30: WBC 18.3 H, Hgb 10.7 L, Hct 31.9 L, Plt Count 254 Microbiology Data (last 24 hrs): 08/12/20 22:30 Wound - Left Foot Gram Stain - Final <claudia rivera - Last Filed: 08/13/20 13:11> Assessment and Plan - Problems (Diagnosis) (1) Diabetic ulcer of left foot Current Visit: Yes Status: Acute Qualifiers: Diabetic foot ulcer location: midfoot Diabetes mellitus type: type 2 Non- pressure ulcer stage: with muscle involvement without evidence of necrosis Qualified Code(s): E11.621 - Type 2 diabetes mellitus with foot ulcer; L97.425 - Non-pressure chronic ulcer of left heel and midfoot with muscle involvement without evidence of necrosis (2) Diabetes Onset Date: 05/01/17 Current Visit: Yes Status: Chronic Qualifiers: Diabetes mellitus type: type 2 Diabetes mellitus care home insulin use: with termination clerk use Diabetes mellitus complication status: with skin complications Diabetes mellitus complication detail: with foot ulcer Qualified Code(s): E11.621 - Type 2 diabetes mellitus with foot ulcer; L97.509 - Non-pressure chronic ulcer of other part of unspecified foot with unspecified severity; Z79.4 - exterminator helper termite (current) use of insulin (3) Cellulitis Current Visit: Yes Status: Acute Qualifiers: Site of cellulitis of extremity: lower extremity Laterality: left - Plan 1. Patient admitted to the medicine floor for further monitoring of vital signs and blood were 2. Patient with cellulitis an open wound of the left foot which will be treated with broad-spectrum antibiotics. We will trend is procalcitonin and CBC poor responsiveness of antibiotics. Patient was also cultured 3. General surgery was consulted and patient will be taken to surgery for debridement of cellulitic wound to the left foot 4. Diabetes will be controlled with glucose checks and insulin scale while admitted 5. We will likely hydrate patient as patient does have chronic kidney disease but will need fluids prior to surgery and with antibiotics 6. DVT prophylaxis Discharge Plan: Home Plan to discharge in: Greater than 2 days - Advance Directives Does patient have a Living Will: No Does patient have a Durable POA for Healthcare: No - Code Status/Comfort Care Code Status Assessed: Yes Code Status: Full Code Critical Care: No Time Spent Managing Pts Care (In Minutes): 80 <Jozef Monroy - Last Filed: 08/13/20 01:45> - Problems (Diagnosis) (1) Cellulitis Current Visit: Yes Status: Acute Qualifiers: Site of cellulitis of extremity: lower extremity Laterality: left (2) Diabetic ulcer of left foot Current Visit: Yes Status: Acute Qualifiers: Diabetic foot ulcer location: midfoot Diabetes mellitus type: type 2 Non- pressure ulcer stage: with muscle involvement without evidence of necrosis Qualified Code(s): E11.621 - Type 2 diabetes mellitus with foot ulcer; L97.425 - Non-pressure chronic ulcer of left heel and midfoot with muscle involvement without evidence of necrosis (3) Diabetes Onset Date: 05/01/17 Current Visit: Yes Status: Chronic Qualifiers: Diabetes mellitus type: type 2 Diabetes mellitus care home insulin use: with termination clerk use Diabetes mellitus complication status: with skin complications Diabetes mellitus complication detail: with foot ulcer Qualified Code(s): E11.621 - Type 2 diabetes mellitus with foot ulcer; L97.509 - Non-pressure chronic ulcer of other part of unspecified foot with unspecified severity; Z79.4 - FPC (current) use of insulin (4) Chronic kidney disease, stage 3 Current Visit: Yes Status: Acute Physician Review: Patient Assessed, Agree with Above Assessment and Plan Physician Review Additional Text: Infected diabetic foot ulcer. DM type 2. Plan: IV antibiotics. General surgery consult for debridement. Insulin sliding scale for glucose management. <claudia rivera - Last Filed: 08/13/20 13:11>
[2020-08-13] MEDS: ONDANSETRON 4 MG/2 ML VIAL IV PRN ×3 (02:28→21:38)
[2020-08-13] MEDS: MORPHINE 4 MG/ML SYR IV PRN ×3 (02:28→21:38)
[2020-08-13 02:59] VITALS: BMI 29.5
[2020-08-13] MEDS ORDERED: D5 0.45 NS 1,000 ML IV SCH (06:00)
--- NOTE | 2020-08-13 08:41 | RAD REPORT ---
EXAM DESCRIPTION: US - Extremity Venous Uni Ltd - 08/13/2020 12:05 am CLINICAL HISTORY: Pain;Swelling COMPARISON: None. TECHNIQUE: Real-time sonographic evaluation of the left lower extremity deep venous system was perfo rmed. FINDINGS: Normal compressibility, flow augmentation, phasic flow and spontaneous flow are identified in the left lower extremity common femoral, superficial femoral, popliteal and posterior tibial vein s. No intraluminal filling defects seen. IMPRESSION: No DVT in the left lower extremity.
--- NOTE | 2020-08-13 08:41 | RAD REPORT ---
EXAM DESCRIPTION: RAD - Foot Left 3 View - 08/12/2020 10:48 pm CLINICAL HISTORY: Pain;Swelling, soft tissue infection plantar surface COMPARISON: No comparisons FINDINGS: No fracture, dislocation or periosteal reaction. No acute or destructive bony process. No significant degenerative change seen. Patient does have plantar and Achilles spurs. Soft tissue wound is seen plantar surface first MTP joint level. There are additional faint air densi ties in the soft tissues tracking more proximally in the plantar soft tissues. No foreign body seen. IMPRESSION: No bone destruction or acute bone or joint finding. Air in the soft tissues tracking proximally along the plantar surface from the site of primary wound.
--- NOTE | 2020-08-13 08:44 | RAD REPORT ---
EXAM DESCRIPTION: US - Lower Extremity Artery Uni Ltd - 08/13/2020 12:06 am CLINICAL HISTORY: SWELLING Preliminary findings provided at the time of the study. COMPARISON: No comparisons TECHNIQUE: Doppler evaluation of the left leg arterial tree performed. Waveforms and velocity values were obtained along with visual inspection. FINDINGS: Triphasic waveforms were seen along the left common femoral, superficial femoral and popli teal arteries. No significant atherosclerotic changes along the scott of these vessels. No occlusion or focal flow restricting lesion identified.The left posterior tibial and dorsalis pedis arteries tra nsition to a more monophasic waveform pattern. Flow is still present. Atherosclerotic changes are pre sent in the scott but no focal flow restricting lesion identified. IMPRESSION: Moderate severity peripheral vascular disease is present in the below-knee left lower ex tremity arterial tree. No one focal flow restricting lesion is seen and no occlusion of the major vessels.
[2020-08-13] MEDS ORDERED: INFLUENZA VACCINE (for 3y+) 0.5 ML DOSE IMVAC ONE (10:00)
--- NOTE | 2020-08-13 10:11 | P.PN ---
Subjective Date of Service: 08/13/20 Primary Care Provider: none Chief Complaint: Cellulitis Left foot, Open wound left foot No new complaint. Patient is to have surgical debridement today. Physical Examination - Vital Signs Temperature: 98.2 F Blood Pressure: 139/74 Pulse: 67 Respirations: 16 Pulse Ox (%): 98 - Physical Exam General: Alert, In no apparent distress HEENT: Atraumatic, Mucous membr. moist/pink, EOMI, Sclerae nonicteric Neck: Supple, JVD not distended Respiratory: Clear to auscultation bilaterally, Normal air movement Cardiovascular: No edema, Regular rate/rhythm, Normal S1 S2 Gastrointestinal: Soft and benign, Non-distended, No tenderness Musculoskeletal: Swelling (Left foot) Integumentary: Other (left foot multiple wounds in dressing. malodorous discharge.) Neurological: Normal strength at 5/5 x4 extr - Studies Laboratory Data (last 24 hrs) 08/12/20 22:30: PT 14.1 H, INR 1.20 08/12/20 22:30: Sodium 139, Potassium 3.6, BUN 27 H, Creatinine 1.51 H, Glucose 115 H, Magnesium 2.4 D, Total Bilirubin 0.4, AST 30, ALT 36, Alkaline Phosphatase 127 H 08/12/20 22:30: WBC 18.3 H, Hgb 10.7 L, Hct 31.9 L, Plt Count 254 Assessment And Plan - Current Problems (Diagnosis) (1) Cellulitis Current Visit: Yes Status: Acute Qualifiers: Site of cellulitis of extremity: lower extremity Laterality: left (2) Diabetic ulcer of left foot Current Visit: Yes Status: Acute Qualifiers: Diabetic foot ulcer location: midfoot Diabetes mellitus type: type 2 Non- pressure ulcer stage: with muscle involvement without evidence of necrosis Qualified Code(s): E11.621 - Type 2 diabetes mellitus with foot ulcer; L97.425 - Non-pressure chronic ulcer of left heel and midfoot with muscle involvement without evidence of necrosis (3) Diabetes Onset Date: 05/01/17 Current Visit: Yes Status: Chronic Qualifiers: Diabetes mellitus type: type 2 Diabetes mellitus fci insulin use: with terminal system operator use Diabetes mellitus complication status: with skin complications Diabetes mellitus complication detail: with foot ulcer Qualified Code(s): E11.621 - Type 2 diabetes mellitus with foot ulcer; L97.509 - Non-pressure chronic ulcer of other part of unspecified foot with unspecified severity; Z79.4 - MCFP (current) use of insulin (4) Chronic kidney disease, stage 3 Current Visit: Yes Status: Acute - Plan Patient to be seen by Dr. Oates. Continue IV cefepime and vancomycin. Deep tissue wound culture to be obtained during surgical debridement. Patient is looking forward to his foot to be preserved as much as possible. Follow cultures. Blood glucose readings within normal range. Insulin sliding scale for glucose management. Check hemoglobin A1c.
[2020-08-13] MEDS ORDERED: GLUCAGON 1 MG/VIAL IM PRN (10:12)
[2020-08-13] MEDS ORDERED: D50W 25 GM/50 ML SYRINGE IV PRN (10:12)
[2020-08-13] MEDS ORDERED: NA CHLORIDE 0.9% 1,000 ML ONE (10:29)
[2020-08-13] MEDS: INSULIN -REGULAR HUMAN 50 UNIT/0.5 ML ML SQ SCH ×3 (10:51→20:11)
[2020-08-13] MEDS ORDERED: VANCOMYCIN/NS 1 gm 1 GM/250 ML BAG IVPB SCH (12:00)
[2020-08-13] MEDS: CEFEPIME/SWI 1gm 10 ML IV SCH ×2 (12:00→14:38)
[2020-08-13] MEDS ORDERED: CEFEPIME 1 GM/VIAL IV SCH (12:00)
[2020-08-13] MEDS ORDERED: propofoL 200 MG/20 ML VIAL IV ONE (12:05)
[2020-08-13] MEDS ORDERED: ONDANSETRON 4 MG/2 ML VIAL ONE (12:05)
[2020-08-13] MEDS ORDERED: KETOROLAC 30 MG/ML INJ ONE (12:05)
[2020-08-13] MEDS ORDERED: LIDOCAINE 2% MPF 5 ML VIAL ONE (12:05)
[2020-08-13] MEDS ORDERED: dexAMETHasone 10 MG/ML VIAL ONE (12:06)
[2020-08-13] MEDS ORDERED: FENTANYL CITR 100 MCG/2 ML ONE (12:07)
--- NOTE | 2020-08-13 12:28 | P.HP ---
Date of Service: 08/13/20 PC: I was asked to see this patient with a large blister and foul-smelling discharge it on his left foot. HPC: Patient is a diabetic. He has had numerous episodes of foot problems over the last 2 years. PMH: Diabetic PSHx: Previous debridements and wound care treatments SOC: No known allergies SYS REVIEW: States he has been otherwise good health O/E awake alert vital signs are stable HEENT: Within normal Chest: Air entry equal bilaterally ABD: Soft 910 LOCO: Open area on the dorsum of the foot, part of it shows full-thickness loss down to muscle, there is also a large blistered area with foul-smelling discharge DATA: Elevated IMPRESSION: Infected chronic wound left foot PLAN: Will take him the operating room for exploration and debridement of this wound. We will then determine what further care he will require. The risks of this procedure were discussed. He understands and wants us to proceed.
--- NOTE | 2020-08-13 13:02 | P.OP ---
Preoperative diagnosis: Diabetic foot ulcer to the left foot Postoperative diagnosis: The same Primary procedure: Incision, and sharp surgical debridement of necrotic tissue from the sole o Anesthesia: General Estimated blood loss: Less than 10 cc Specimen: Necrotic debris, and then sent Operative Technique: The patient brought the operating room placed supine on the table. After the induction of adequate general endotracheal anesthesia, there the left foot was prepped with a DuraPrep solution and draped in usual aseptic manner. Attention was turned towards the sole of the left foot. The patient has a large jagged open wound extending from the base of the metatarsals down medially 1 aiming laterally all coursing along the tendon sheath of the foot. There is full- thickness skin loss in this area with necrotic subcutaneous tissue. It had very for spine foul odor cultures both a aerobic and anaerobic were taken. This necrotic debris was then sharply excise using 11 blade. This left us with a def ect approximately 6 cm x 3 cm in size. This is down to the plantar fascia. Over the head of the metatarsal the patient also has another chronic wound. There is full-thickness skin loss in this area with underlying fatty granulating muscle. This area was just also addressed using electro cautery to take down some of the excess granulation tissue that had formed. At the base of the 3rd tries there is another blistered area. This was on roof to left open. At this point I curette was once again gone over our plantar wound. The area was then packed with iodoform gauze. SC have this wound progresses over the next 24 hr and when he requires further surgical debridement. This is going to be difficult wound to take care of during the postoperative period. I will discuss with the patient the outlook and prognosis. Complications: None Transferred to: Recovery Room Condition: Good
[2020-08-13] MEDS ORDERED: Phenylephrine HCl 10 MG/ML 1 ML VIAL ONE (13:04)
--- NOTE | 2020-08-13 13:58 | EKG ---
Test Date: 2020-08-13 Test Time: 02:24:48 Industrial Relations Representative: RT MEASUREMENT RESULTS: Intervals: Rate: 62 AR: 152 QRSD: 96 QT: 404 QTc: 410 [place]: P: 1 AR: 152 QRS: -4 T: 7 INTERPRETIVE STATEMENTS: Normal sinus rhythm Normal ECG Compared to ECG 11/30/2018 10:29:31 T-wave abnormality no longer present Possible ischemia no longer present Electronically Signed On 08-13-20 13:58:14 VOLLEYBALL COMMENTATOR by Brandon Bernard
[2020-08-13] MEDS: ENOXAPARIN 40 MG/0.4 ML SQ SCH (17:23)
[2020-08-13] MEDS: VANCOMYCIN 1.75 GM in NA CHLORIDE 0.9% 500 ML IVPB SCH (17:24)
[2020-08-14] MEDS ORDERED: CEFEPIME 1 GM/100 ML BAG IV ONE (01:07)
[2020-08-14] MEDS: ONDANSETRON 4 MG/2 ML VIAL IV PRN (05:53)
[2020-08-14] MEDS: MORPHINE 4 MG/ML SYR IV PRN (05:53)
[2020-08-14 06:38] LABS: Absolute Lymphocytes (CBC) 1.6 K/uL (0.7-4.9); Basophils % 0.5 % (0-1.3); Hematocrit 32.8 % (39.6-49.0); Lymphocytes % 10.6 % (15.3-44.8); MPV 11.5 fL (7.6-11.3); RBC Red Blood Cell Count 3.69 M/uL (4.33-5.43)
[2020-08-14 06:46] LABS: Potassium 4.4 mmol/L (3.5-5.1)
[2020-08-14] MEDS: INSULIN -REGULAR HUMAN 50 UNIT/0.5 ML ML SQ SCH ×4 (07:30→20:32)
[2020-08-14] MEDS: GABAPENTIN 300 MG CAP PO SCH ×3 (10:11→20:08)
--- NOTE | 2020-08-14 10:53 | P.PN ---
Subjective Date of Service: 08/14/20 Primary Care Provider: none Chief Complaint: Cellulitis Left foot, Open wound left foot No new complaint. Status post surgical debridement. Physical Examination - Vital Signs Temperature: 98.0 F Blood Pressure: 163/76 Pulse: 60 Respirations: 16 Pulse Ox (%): 99 - Physical Exam General: Alert, In no apparent distress Respiratory: Clear to auscultation bilaterally, Normal air movement Cardiovascular: No edema, Regular rate/rhythm, Normal S1 S2 Gastrointestinal: Soft and benign, Non-distended Musculoskeletal: Swelling (Left foot dressed. Plantar aspect of the dressing soaked.) Neurological: Other (Nonfocal) - Studies Microbiology Data (last 24 hrs): 08/12/20 22:30 Wound - Left Foot Gram Stain - Final Assessment And Plan - Current Problems (Diagnosis) (1) Cellulitis Current Visit: Yes Status: Acute Qualifiers: Site of cellulitis of extremity: lower extremity Laterality: left (2) Diabetic ulcer of left foot Current Visit: Yes Status: Acute Qualifiers: Diabetic foot ulcer location: midfoot Diabetes mellitus type: type 2 Non- pressure ulcer stage: with muscle involvement without evidence of necrosis Qualified Code(s): E11.621 - Type 2 diabetes mellitus with foot ulcer; L97.425 - Non-pressure chronic ulcer of left heel and midfoot with muscle involvement without evidence of necrosis (3) Diabetes Onset Date: 05/01/17 Current Visit: Yes Status: Chronic Qualifiers: Diabetes mellitus type: type 2 Diabetes mellitus exterminator termite insulin use: with exterminator termite use Diabetes mellitus complication status: with skin complications Diabetes mellitus complication detail: with foot ulcer Qualified Code(s): E11.621 - Type 2 diabetes mellitus with foot ulcer; L97.509 - Non-pressure chronic ulcer of other part of unspecified foot with unspecified severity; Z79.4 - correction (current) use of insulin (4) Chronic kidney disease, stage 3 Current Visit: Yes Status: Acute - Plan Status post left foot debridement. Continue IV cefepime and vancomycin. Follow deep tissue wound culture. Wound care for general surgery-Dr. Robb Blood glucose readings within normal range. Hemoglobin A1c is 5.5. Insulin sliding scale for glucose management. Resume gabapentin. Physician Review: Patient Assessed, Agree with Above Assessment and Plan
[2020-08-14] MEDS: VANCOMYCIN 1.75 GM in NA CHLORIDE 0.9% 500 ML IVPB SCH (11:03)
[2020-08-14] MEDS: CEFEPIME/SWI 1gm 10 ML IV SCH ×3 (11:03→23:56)
[2020-08-14] MEDS: HYDROCODONE/APAP 5/325 MG TAB PO PRN (12:10)
--- NOTE | 2020-08-14 12:58 | P.PN ---
Date of Service: 08/14/20 S: Patient feels well today, the pain is controlled. Tolerating a diet. O: Dressing is intact. A: Stable status post debridement of left foot. P: Will keep a continue patient on IV antibiotics today. Will take dressing down tomorrow ran reassess the wound. This is most likely going to require ongoing wound care. We will make arrangements for the Wound Care Center tomorrow. In the interim time. Will apply some santazaina ran away stressing.
[2020-08-14] MEDS: COLLAGENASE 30 GM OINTMENT TOP SCH (18:04)
[2020-08-14] MEDS: ENOXAPARIN 40 MG/0.4 ML SQ SCH (18:04)
[2020-08-15 04:19] LABS: Absolute Lymphocytes (CBC) 1.9 K/uL (0.7-4.9); Lymphocytes % 15.5 % (15.3-44.8); MPV 10.5 fL (7.6-11.3); RBC Red Blood Cell Count 3.74 M/uL (4.33-5.43)
[2020-08-15 04:32] LABS: Potassium 4.1 mmol/L (3.5-5.1)
[2020-08-15] MEDS: VANCOMYCIN 1.75 GM in NA CHLORIDE 0.9% 500 ML IVPB SCH (06:38)
[2020-08-15] MEDS: INSULIN -REGULAR HUMAN 50 UNIT/0.5 ML ML SQ SCH ×4 (07:30→20:35)
[2020-08-15] MEDS: COLLAGENASE 30 GM OINTMENT TOP SCH (08:30)
[2020-08-15] MEDS: GABAPENTIN 300 MG CAP PO SCH ×3 (08:31→20:35)
[2020-08-15] MEDS: MAGNESIUM CITRATE 300 ML BOT PO SCH (09:50)
[2020-08-15] MEDS: CEFEPIME/SWI 1gm 10 ML IV SCH (11:17)
[2020-08-15] MEDS: MORPHINE 4 MG/ML SYR IV PRN ×2 (11:18→20:38)
--- NOTE | 2020-08-15 11:53 | P.PN ---
Subjective Date of Service: 08/15/20 Primary Care Provider: none Chief Complaint: Cellulitis Left foot, Open wound left foot No new complaint. Status post surgical debridement-day 3. Patient has no complain. She states her left foot swelling has significantly improved. Blood sugars are within normal range. Physical Examination - Vital Signs Temperature: 98.2 F Blood Pressure: 165/74 Pulse: 76 Respirations: 18 Pulse Ox (%): 95 - Physical Exam General: Alert, In no apparent distress Respiratory: Clear to auscultation bilaterally, Normal air movement Cardiovascular: No edema, Regular rate/rhythm, Normal S1 S2 Gastrointestinal: Soft and benign, Non-distended, No tenderness Musculoskeletal: Other (Left foot dressed.) Integumentary: No rashes Neurological: Normal strength at 5/5 x4 extr - Studies Microbiology Data (last 24 hrs): 08/12/20 22:30 Wound - Left Foot Gram Stain - Final Assessment And Plan - Current Problems (Diagnosis) (1) Cellulitis Current Visit: Yes Status: Acute Qualifiers: Site of cellulitis of extremity: lower extremity Laterality: left (2) Diabetic ulcer of left foot Current Visit: Yes Status: Acute Qualifiers: Diabetic foot ulcer location: midfoot Diabetes mellitus type: type 2 Non- pressure ulcer stage: with muscle involvement without evidence of necrosis Qualified Code(s): E11.621 - Type 2 diabetes mellitus with foot ulcer; L97.425 - Non-pressure chronic ulcer of left heel and midfoot with muscle involvement without evidence of necrosis (3) Diabetes Onset Date: 05/01/17 Current Visit: Yes Status: Chronic Qualifiers: Diabetes mellitus type: type 2 Diabetes mellitus director long term care insulin use: with care home use Diabetes mellitus complication status: with skin complications Diabetes mellitus complication detail: with foot ulcer Qualified Code(s): E11.621 - Type 2 diabetes mellitus with foot ulcer; L97.509 - Non-pressure chronic ulcer of other part of unspecified foot with unspecified severity; Z79.4 - shelter (current) use of insulin (4) Chronic kidney disease, stage 3 Current Visit: Yes Status: Acute - Plan Status post left foot debridement. Continue IV cefepime and vancomycin. Deep tissue wound culture growing multiple gram positive organisms. Follow culture for organism identification and sensitivity Dr. Robb to follow today. Patient will need arrangements for comprehensive wound care as an outpatient with the wound care clinic. Blood glucose readings within normal range. Hemoglobin A1c is 5.5. Insulin sliding scale for glucose management.
[2020-08-15] MEDS: ENOXAPARIN 40 MG/0.4 ML SQ SCH (16:39)
[2020-08-16] MEDS: VANCOMYCIN 1.75 GM in NA CHLORIDE 0.9% 500 ML IVPB SCH (00:01)
[2020-08-16] MEDS: CEFEPIME/SWI 1gm 10 ML IV SCH ×2 (00:01→12:20)
[2020-08-16 05:38] LABS: Absolute Lymphocytes (CBC) 2.4 K/uL (0.7-4.9); Basophils % 1.1 % (0-1.3); Hematocrit 35.1 % (39.6-49.0); Lymphocytes % 21.6 % (15.3-44.8); MPV 9.7 fL (7.6-11.3); RBC Red Blood Cell Count 3.97 M/uL (4.33-5.43)
[2020-08-16 05:54] LABS: Magnesium 2.1 mg/dL (1.8-2.4); Potassium 3.9 mmol/L (3.5-5.1)
[2020-08-16] MEDS: INSULIN -REGULAR HUMAN 50 UNIT/0.5 ML ML SQ SCH ×3 (07:30→16:30)
[2020-08-16] MEDS: GABAPENTIN 300 MG CAP PO SCH ×2 (09:38→14:12)
[2020-08-16] MEDS: COLLAGENASE 30 GM OINTMENT TOP SCH (09:39)
[2020-08-16 09:45] VITALS: O2SAT 97
[2020-08-16] MEDS: MAGNESIUM CITRATE 300 ML BOT PO SCH (10:00)
[2020-08-16] MEDS ORDERED: LACTULOSE 20 GM/30 ML UCUP PO ONE (10:02)
[2020-08-16] MEDS: HYDROCODONE/APAP 5/325 MG TAB PO PRN (12:19)
--- NOTE | 2020-08-16 13:52 | P.DS ---
Admission Date: 08/13/20 Discharge Date: 08/16/20 Primary Care Provider: none Disposition: DC HOME/HOME HEALTH CARE Discharge Condition: GOOD Reason for Admission: Cellulitis Left foot, Open wound left foot Consultations: General Surgery: Dr. Robb Procedures: Foot X-ray (08/12): no bone destruction or acute bone or joint finding. air in the soft tissues tracking proximally along the plantar surface from the site of the primary wound. LLE U/S (08/12): moderate severity peripheral vascular disease is present in the below-knee left lower extremity arterial tree. No DVT in the left lower extremity I&D by Dr. Robb (08/13): I&D of necrotic tissue from the sole of L foot (~6 x 3 cm defect) Problem List LLE cellulitis and diabetic ulcer of left foot DM2, insulin dependent CKD3, stable Brief History of Present Illness: 45yo M, PMH: IDDM presented to ED due to increased L foot pain, redness, and foul smelling discharge. Patient was found to have large infected diabetic foot ulcer. Hospital Course: General surgery was consulted and patient was taken to the OR the following morning for I&D. Wound cultures were obtained and grew MSSA. Patient improved clinically post-op and was discharged home with home health for dressing changes and 2 weeks of Bactrim. He will f/u with Dr. Robb in the wound care center. Vital Signs/Physical Exam: Temp Pulse Resp BP Pulse Ox 97.8 F 68 16 163/77 H 97 08/16/20 12:00 08/16/20 12:00 08/16/20 12:00 08/16/20 12:00 08/16/20 12:00 General: Alert, In no apparent distress HEENT: Sclerae nonicteric Respiratory: Clear to auscultation bilaterally, Normal air movement Cardiovascular: No edema, Regular rate/rhythm Gastrointestinal: Soft and benign, No tenderness Integumentary: Other (multiple ulcers on sole of foot, no purulent drainage) Neurological: Normal speech, Normal affect Laboratory Data at Discharge: WBC 11.2 K/uL (4.3-10.9) H 08/16/20 05:16 Hgb 11.6 g/dL (13.6-17.9) L 08/16/20 05:16 Hct 35.1 % (39.6-49.0) L 08/16/20 05:16 Plt Count 285 K/uL (152-406) 08/16/20 05:16 PT 14.1 SECONDS (9.5-12.5) H 08/12/20 22:30 INR 1.20 08/12/20 22:30 Sodium 139 mmol/L (136-145) 08/16/20 05:16 Potassium 3.9 mmol/L (3.5-5.1) 08/16/20 05:16 BUN 15 mg/dL (7-18) 08/16/20 05:16 Creatinine 1.02 mg/dL (0.55-1.3) 08/16/20 05:16 Glucose 84 mg/dL (74-106) 08/16/20 05:16 Magnesium 2.1 mg/dL (1.8-2.4) 08/16/20 05:16 Total Bilirubin 0.4 mg/dL (0.2-1.0) 08/12/20 22:30 AST 30 U/L (15-37) 08/12/20 22:30 ALT 36 U/L (12-78) 08/12/20 22:30 Alkaline Phosphatase 127 U/L (45-117) H 08/12/20 22:30 Home Medications: Gabapentin 1 tab PO TID 11/29/18 Metformin HCl [Glucophage] 1 tab PO BID 11/29/18 Collagenase [Santyl Ointment] 1 appl TOP DAILY 30 Days #1 tube 08/16/20 Smz./Tmp. [Bactrim Ds 800 MG/160 MG] 2 tab PO BID 14 Days #56 tab 08/16/20 New Medications: Smz./Tmp. [Bactrim Ds 800 MG/160 MG] 2 tab PO BID 14 Days #56 tab Collagenase [Santyl Ointment] 1 appl TOP DAILY 30 Days #1 tube Followup: Jone Choudhury MD [ACTIVE - CAN ADMIT] - Yang Robb MD [ACTIVE - CAN ADMIT] - Unknown,U [Primary Care Provider] -
[2020-08-16 15:59] VITALS: BP 135/72; TEMP 98.2
== END 2020-08-16 16:43 | disposition home health service (06) | DRG 623 ==
LOC: ER 21:53 → 2ND 08-13 01:13
PROVIDERS: ADMIT Internal Medicine; ATTEND Hospitalist
PROC: 0JBR0ZZ Excision of Left Foot Subcutaneous Tissue and Fascia, Open Approach (ICD-10-PCS; principal; 2020-08-13 12:00)
DX: E11.621 Type 2 diabetes mellitus with foot ulcer (principal); L03.116 Cellulitis of left lower limb; L97.425 Non-pressure chronic ulcer of left heel and midfoot with muscle involvement without evidence of necrosis; L97.509 Non-pressure chronic ulcer of other part of unspecified foot with unspecified severity; I12.9 Hypertensive chronic kidney disease with stage 1 through stage 4 chronic kidney disease, or unspecified chronic kidney disease; N18.30 Chronic kidney disease, stage 3 unspecified; E11.22 Type 2 diabetes mellitus with diabetic chronic kidney disease; Z79.899 Other long term (current) drug therapy; Z79.84 Long term (current) use of oral hypoglycemic drugs; Z20.828 Contact with and (suspected) exposure to other viral communicable diseases
CPT/HCPCS: 36415; 80048; 80076; 80202; 82947; 83036; 83605; 83735; 84145; 85025; 85610; 85652; 86140; 87040; 87070; 87075; 87077; 87186; 87205; 93005; 93926; 93971; 96365; 96375; 99285; J0692; J1100; J1650; J2370; J2405; J2704; J3010; J3370; J3590; J7030; J7040; J7050; J7799; U0003

== ENCOUNTER 2021-07-09 17:52 | Inpatient (IN) | payer BC, OTHER ==
[2021-07-09] MEDS ORDERED: NA CHLORIDE 0.9% 500 ML ONE (19:03)
[2021-07-09] MEDS ORDERED: NA CHLORIDE 0.9% 2,000 ML ONE (19:03)
[2021-07-09 19:16] LABS: Absolute Lymphocytes (CBC) 0.6 K/uL (0.7-4.9); Basophils % 2.8 % (0-1.3); Hematocrit 36.5 % (39.6-49.0); Lymphocytes % 4.6 % (15.3-44.8); MPV 9.7 fL (7.6-11.3); RBC Red Blood Cell Count 4.05 M/uL (4.33-5.43)
[2021-07-09] MEDS ORDERED: CEFEPIME 1 GM/VIAL ONE (19:20)
[2021-07-09 19:21] LABS: Protime INR 1.15
[2021-07-09] MEDS ORDERED: VANCOMYCIN 1 GM/VIAL ONE (19:21)
[2021-07-09] MEDS ORDERED: MORPHINE 4 MG/ML SYR ONE (19:21)
[2021-07-09] MEDS ORDERED: ONDANSETRON 4 MG/2 ML VIAL ONE (19:21)
[2021-07-09] MEDS ORDERED: NA CHLORIDE 0.9% 250 ML ONE (19:22)
[2021-07-09] MEDS ORDERED: NA CHLORIDE 0.9% 100 ML ONE (19:22)
--- NOTE | 2021-07-09 19:24 | EDPHYS ---
Physician Documentation [facility] Name: Liu Boo Jr Age: 46 yrs Sex: Male : 1975 Arrival Date: 07/09/2021 Time: 17:53 Bed 13 Private MD: Carolyn Lemus C ED Physician Emanuel Shaffer HPI: 07/09 18:54 This 46 yrs old Male presents to ER via Ambulatory with complaints of Left pm1 Foot Pain - swelling/redness. 18:54 The patient presents with pain, swelling. The complaints affect the left calf and pm1 dorsum of left foot. Context: The problem was sustained at home, resulted from Stubbed his left great toe 1 week ago. No break in skin to left great toe. Has chronic ulcer to left ball of foot proximal to great toe. Patient noticed increase redness and swelling to left foot. Followed up with PCP and was prescribed Bactrim for possible cellulitis. Patient reports no improvement in redness and swelling. Patient reports pain radiating from the back of left leg to calf from left foot, the patient can fully bear weight, the patient is able to ambulate. Onset: The symptoms/episode began/occurred 1 week(s) ago. Modifying factors: The symptoms are alleviated by nothing. the symptoms are aggravated by nothing. Associated signs and symptoms: Pertinent positives: fever, Pertinent negatives numbness, tingling. Treatment prior to arrival includes: prescription medications, Bactrim DS and bactroban. Severity of symptoms: in the emergency department the symptoms are actually worse. The patient has been recently seen by a physician: the patient's primary care provider, Dr. Eladia Lemus with similar presenting complaints, and apparently given a diagnosis of cellulitis, was given a prescription for antibiotics. Historical: - Allergies: 18:21 No Known Allergies; vg1 - Home Meds: 18:21 gabapentin Oral [Active]; metformin 1,000 mg Oral tab 1 tab daily [Active]; terbinafine vg1 HCl oral [Active]; sulfamethoxazole-trimethoprim Oral [Active]; - PMHx: 18:21 Diabetes - NIDDM; vg1 - PSHx: 18:21 Gastric sleeve; vg1 - Immunization history:: Client reports receiving the 2nd dose of the Covid vaccine. - Social history:: Smoking status: Patient denies any tobacco usage or history of. ROS: 18:54 Cardiovascular: Negative for chest pain, palpitations, and edema, Respiratory: Negative pm1 for shortness of breath, cough, wheezing, and pleuritic chest pain, Abdomen/GI: Negative for abdominal pain, nausea, vomiting, diarrhea, and constipation, Back: Negative for injury and pain. 18:54 Neuro: Negative for headache, weakness, numbness, tingling, and seizure. 18:54 Constitutional: Positive for fever, Negative for poor PO intake. 18:54 MS/extremity: Positive for erythema, pain, swelling, of the left calf, Pain to left calf. 18:54 Skin: Positive for ulceration, of the ball of left foot, swelling and redness to left foot. 18:54 All other systems are negative. Exam: 18:54 Constitutional: This is a well developed, well nourished patient who is awake, alert, pm1 and in no acute distress. Head/Face: Normocephalic, atraumatic. 18:54 Eyes: Exam is negative for acute changes, Extraocular movements: no acute changes, Conjunctiva: no acute changes, no injection. 18:54 Cardiovascular: Rate: tachycardic, Rhythm: regular, Pulses: no pulse deficits are appreciated. 18:54 Respiratory: Exam negative for acute changes, respiratory distress, shortness of breath, Breath sounds: are clear throughout. 18:54 Abdomen/GI: Inspection: abdomen appears normal, Palpation: abdomen is soft and non-tender, in all quadrants. 18:54 Musculoskeletal/extremity: Extremities: noted in the left calf: tenderness, the left foot Sensation intact. 18:54 Skin: Appearance: normal except for affected area, Color: erythematous, swelling, noted on the ball of left foot and dorsum of left foot, lesion(s), located on the ball of left foot, 1 cm circular ulceration without and drainage or discharge. Surrounding swelling and redness present to ball and dorsum of left foot. 18:54 Neuro: Exam negative for acute changes, Orientation: is normal, Mentation: is normal, Motor: is normal, moves all fours. Vital Signs: 18:17 BP 166 / 79; Pulse 108; Resp 18; Temp 101.0(O); Pulse Ox 98% ; Weight 108.86 kg; Height vg1 5 ft. 11 in. (180.34 cm); Pain 8/10; 20:00 BP 150 / 80; Pulse 105; Resp 19; Pulse Ox 98% ; Pain 5/10; fu 21:51 BP 137 / 75; Pulse 91; Resp 16; Temp 99.2(O); Pulse Ox 96% ; Pain 2/10; fu 18:17 Body Mass Index 33.47 (108.86 kg, 180.34 cm) vg1 MDM: 18:28 Patient medically screened. pm1 19:05 Counseling: I had a detailed discussion with the patient and/or guardian regarding: the pm1 historical points, exam findings, and any diagnostic results supporting the discharge/admit diagnosis, the need for further work-up and treatment in the hospital. 19:22 Data reviewed: vital signs. Data interpreted: Pulse oximetry: on room air is 98 %. pm1 Interpretation: normal. 07/09 18:36 Order name: Procalcitonin; Complete Time: 21:05 pm1 07/09 18:36 Order name: Lactate; Complete Time: 19:40 pm1 07/09 18:36 Order name: CBC with Diff; Complete Time: 19:26 pm1 07/09 18:36 Order name: CMP; Complete Time: 19:40 pm1 07/09 18:36 Order name: PT-INR; Complete Time: 19:26 pm1 07/09 18:36 Order name: Ptt, Activated; Complete Time: 19:26 pm1 07/09 18:36 Order name: Blood Culture Adult (2) pm1 07/09 18:36 Order name: COVID-19 (Coronavirus) Document "Date of Onset" if Symptomatic pm1 07/09 18:37 Order name: Wound Culture pm07/09 18:38 Order name: Amylase, Serum pm1 07/09 18:38 Order name: CPK pm1 07/09 18:38 Order name: Ckmb; Complete Time: 19:40 pm1 07/09 18:38 Order name: Lipase; Complete Time: 19:40 pm1 07/09 18:38 Order name: Troponin (emerg Dept Use Only); Complete Time: 19:40 pm1 07/09 18:36 Order name: Foot Left 3 View XRAY; Complete Time: 20:39 pm1 07/09 18:36 Order name: Extremity Venous Uni Ltd US; Complete Time: 20:05 pm1 07/09 18:38 Order name: Urine Microscopic Only pm1 07/09 18:38 Order name: Chest Single View XRAY; Complete Time: 20:39 pm1 07/09 18:39 Order name: Amylase; Complete Time: 19:40 EDMS 07/09 18:39 Order name: Creatine Phosphokinase; Complete Time: 19:40 EDMS 07/09 20:05 Order name: SARS-COV-2 RT PCR; Complete Time: 21:05 EDMS 07/09 20:07 Order name: Glucose, Ancillary Testing; Complete Time: 20:15 EDMS 07/09 22:02 Order name: Urine Dipstick-Ancillary; Complete Time: 22:08 EDMS 07/09 18:38 Order name: Accucheck; Complete Time: 19:59 pm1 07/09 18:38 Order name: Cardiac monitoring; Complete Time: 19:34 pm1 07/09 18:38 Order name: EKG - Nurse/Tech; Complete Time: 19:33 pm1 07/09 18:38 Order name: Labs collected and sent; Complete Time: 19:51 pm1 07/09 18:38 Order name: O2 Per Protocol; Complete Time: 19:51 pm1 07/09 18:38 Order name: O2 Sat Monitoring; Complete Time: 19:51 pm1 07/09 18:38 Order name: Urine Dipstick-Ancillary (obtain specimen); Complete Time: 22:35 pm1 Administered Medications: 19:48 Drug: morphine 4 mg Route: IVP; Site: right forearm; fu 19:48 Drug: Zofran (Ondansetron) 4 mg Route: IVP; Site: right forearm; fu 19:49 Drug: Cefepime 1 grams Route: IVPB; Rate: 200 ml/hr; Infused Over: 30 mins; Site: right fu forearm; 19:49 Drug: vancoMYCIN 1 grams Route: IVPB; Infused Over: 2 hrs; Site: left forearm; fu 19:59 Drug: Tylenol 1000 mg Route: PO; fu 21:42 Drug: NS 0.9% (30 ml/kg) 30 ml/kg Route: IV; Rate: bolus; Site: left forearm; fu Disposition: 07/10 05:54 Co-signature as Attending Physician, Emanuel SHORT I agree with the assessment and [place] plan of care. Disposition Summary: 07/09/21 19:23 Hospitalization Ordered Hospitalization Status: Inpatient Admission pm1 Provider: Franco Marquez pm1 Location: Telemetry/MedSurg (Inpatient) pm1 Condition: Stable pm1 Problem: new pm1 Symptoms: have improved pm1 Bed/Room Type: Standard pm1 Room Assignment: 201(07/09/21 21:06) cg Diagnosis - Cellulitis of left lower limb pm1 Forms: - Medication Reconciliation Form pm1 - SBAR form pm1 Signatures: Dispatcher [employer] EDSC Emanuel Shaffer MD MD cha Attema, Lee, DRY DIP WORKER-C DRY DIP WORKER-Cla1 Lo Florez, RN RN cg Chinmay Cifuentes NP TECHNICAL MANAGER pm1 Brayan Ceja, Celeste No RN RN RN vg1 Corrections: (The following items were deleted from the chart) 07/09 20:05 19:26 CORONAVIRUS+.BRZ ordered. [facility] EDSC 21:06 19:23 pm1 cg
--- NOTE | 2021-07-09 19:24 | ER ---
Nurse's Notes [facility] Name: Liu Boo Jr Age: 46 yrs Sex: Male : 1975 Arrival Date: 07/09/2021 Time: 17:53 Bed 13 Private MD: Carolyn Lemus C Diagnosis: Cellulitis of left lower limb Presentation: 07/09 18:17 Chief complaint: Patient states: Pt had stubbed Left toe about a week ago; went to go vg1 see Eladia Lemus, and was given antibiotics due to swelling and redness of Left foot. Pt states doesn't seem to get any better and the pain goes up to Left knee. Left foot appears to be swollen and red. Left lower extremity also appears to be red. Coronavirus screen: Vaccine status: Patient reports receiving the 2nd dose of the covid vaccine. Client denies travel out of the [place] in the last 14 days. Ebola Screen: Patient negative for fever greater than or equal to 101.5 degrees Fahrenheit, and additional compatible Ebola Virus Disease symptoms. Initial Sepsis Screen: Does the patient meet any 2 criteria? Temp <36.0*C (96.8*F)) or > 38.3*C (100.9*F). HR > 90 bpm. Yes Does the patient have a suspected source of infection? No. Patient's initial sepsis screen is negative. Risk Assessment: Do you want to hurt yourself or someone else? Patient reports no desire to harm self or others. Onset of symptoms was June 30, 2021. 18:17 Method Of Arrival: Ambulatory vg1 18:17 Acuity: LUZ MARINA 3 vg1 Triage Assessment: 18:21 General: Appears in no apparent distress. uncomfortable, Behavior is calm, cooperative. vg1 Pain: Complains of pain in left leg Pain currently is 8 out of 10 on a pain scale. Derm: Skin is red. Historical: - Allergies: 18:21 No Known Allergies; vg1 - Home Meds: 18:21 gabapentin Oral [Active]; metformin 1,000 mg Oral tab 1 tab daily [Active]; terbinafine vg1 HCl oral [Active]; sulfamethoxazole-trimethoprim Oral [Active]; - PMHx: 18:21 Diabetes - NIDDM; vg1 - PSHx: 18:21 Gastric sleeve; vg1 - Immunization history:: Client reports receiving the 2nd dose of the Covid vaccine. - Social history:: Smoking status: Patient denies any tobacco usage or history of. Screenin:46 Abuse screen: Denies threats or abuse. Nutritional screening: No deficits noted. fu Tuberculosis screening: No symptoms or risk factors identified. Fall Risk None identified. Assessment: 19:33 General: Appears in no apparent distress. Behavior is calm, cooperative, appropriate fu for age. Pain: Complains of pain in left foot and left calf Pain does not radiate. Pain currently is 8 out of 10 on a pain scale. Quality of pain is described as throbbing, Pain began 9 days ago. Neuro: Level of Consciousness is awake, alert, obeys commands, Oriented to person, place, time, situation, Foundation Relations Manager are equal bilaterally Moves all extremities. Gait is steady, Speech is normal, Facial symmetry appears normal. Cardiovascular: Denies chest pain, nausea, vomiting. Respiratory: Respiratory effort is even, Respiratory pattern is regular. Derm: redness, swelling and wound to left foot. 20:30 Reassessment: Patient and/or family updated on plan of care and expected duration. Pain fu level reassessed. Patient is alert, oriented x 3, equal unlabored respirations, skin warm/dry/pink. 21:00 Reassessment: Patient and/or family updated on plan of care and expected duration. Pain fu level reassessed. Patient is alert, oriented x 3, equal unlabored respirations, skin warm/dry/pink. Patient states feeling better. Vital Signs: 18:17 BP 166 / 79; Pulse 108; Resp 18; Temp 101.0(O); Pulse Ox 98% ; Weight 108.86 kg; Height vg1 5 ft. 11 in. (180.34 cm); Pain 8/10; 20:00 BP 150 / 80; Pulse 105; Resp 19; Pulse Ox 98% ; Pain 5/10; fu 21:51 BP 137 / 75; Pulse 91; Resp 16; Temp 99.2(O); Pulse Ox 96% ; Pain 2/10; fu 18:17 Body Mass Index 33.47 (108.86 kg, 180.34 cm) vg1 ED Course: 17:53 Patient arrived in ED. am2 17:53 Allan, Carloyn, PERIOPERATIVE EDUCATOR is Private Physician. am2 18:21 Triage completed. vg1 18:21 Arm band placed on. vg1 18:28 Chinmay [facility]ifuentes [facility]. pm1 18:28 Emanuel Shaffer MD is Attending Physician. pm1 18:29 Talya Borja, RICK is Primary Nurse. sl2 19:22 Franco Marquez MD is Hospitalizing Provider. pm1 19:28 Extremity Venous Uni Ltd US In Process Unspecified. EDMS 19:29 Primary Nurse role handed off by Talya Borja RN mw2 19:46 Inserted saline lock: 20 gauge in left forearm, using aseptic technique. fu 19:47 Foot Left 3 View XRAY In Process Unspecified. EDMS 19:47 Chest Single View XRAY In Process Unspecified. EDMS 19:47 Brayan Ceja RN is Primary Nurse. fu 19:47 Inserted saline lock: 20 gauge in right forearm, using aseptic technique. Blood fu collected. 19:51 CPK Sent. fu 19:51 Amylase, Serum Sent. fu 21:54 Patient has correct armband on for positive identification. Bed in low position. Side fu rails up X2. athletic monitor on. Pulse ox on. NIBP on. 21:54 No provider procedures requiring assistance completed. Patient admitted, IV remains in fu place. Administered Medications: 19:48 Drug: morphine 4 mg Route: IVP; Site: right forearm; fu 19:48 Drug: Zofran (Ondansetron) 4 mg Route: IVP; Site: right forearm; fu 19:49 Drug: Cefepime 1 grams Route: IVPB; Rate: 200 ml/hr; Infused Over: 30 mins; Site: right fu forearm; 19:49 Drug: vancoMYCIN 1 grams Route: IVPB; Infused Over: 2 hrs; Site: left forearm; fu 19:59 Drug: Tylenol 1000 mg Route: PO; fu 21:42 Drug: NS 0.9% (30 ml/kg) 30 ml/kg Route: IV; Rate: bolus; Site: left forearm; fu Outcome: 19:23 Decision to Hospitalize by Provider. pm1 22:11 Admitted to Med/surg accompanied by tech, room 201, Report called to RICK Parry fu 22:11 Condition: good 22:11 Instructed on the need for admit, Demonstrated understanding of instructions. 22:47 Patient left the ED. mw2 Signatures: Dispatcher [employer] EDMS Chinmay Cifuentes, COMPUTATIONAL GENETICIST COMPUTATIONAL GENETICIST pm1 Chayo Kamara am2 Brayan Ceja, RN RN Destin Abel mw2 Celeste Florez RN RN 1 Talya Borja RN RN sl2
[2021-07-09 19:31] LABS: Amylase 36 U/L (25-115); Creatine Phosphokinase 69 U/L (39-308); Lipase 76 U/L (73-393)
[2021-07-09 19:32] LABS: CKMB Creatine Kinase MB < 1.0 ng/mL (1.0-3.6)
[2021-07-09 19:33] LABS: Albumin 2.9 g/dL (3.4-5.0); Bilirubin Total 0.5 mg/dL (0.2-1.0); Protein, Total 7.1 g/dL (6.4-8.2); Troponin (Emerg Dept Use Only) < 0.02 ng/mL (0.0-0.045)
[2021-07-09 19:35] LABS: Potassium 4.3 mmol/L (3.5-5.1)
[2021-07-09] MEDS ORDERED: ACETAMINOPHEN 500 MG TAB ONE (19:54)
--- NOTE | 2021-07-09 20:00 | RAD REPORT ---
EXAM DESCRIPTION: US - Extremity Venous Uni Ltd - 07/09/2021 7:28 pm CLINICAL HISTORY: Left ankle swelling COMPARISON: None. TECHNIQUE: Real-time sonographic evaluation of the left lower extremity deep venous system was perfo rmed. FINDINGS: Normal compressibility, flow augmentation, phasic flow and spontaneous flow is identified in the left lower extremity deep venous system. No intraluminal filling defects seen. IMPRESSION: No DVT in the left lower extremity.
--- NOTE | 2021-07-09 20:07 | P.HP ---
Certification for Inpatient Patient admitted to: Inpatient Patient will require the following post-hospital care: None Practitioner: I am a practitioner with admitting privileges, knowledge of patient current condition, hospital course, and medical plan of care. Services: Services provided to patient in accordance with Admission requirements found in Title 42 Section 412.3 of the Code of Federal Regulations <Matheus Hurst - Last Filed: 07/09/21 20:03> Patient History Date of Service: 07/09/21 Reason for admission: Cellulitis LLE History of Present Illness: 46-year-old male with history of diabetes mellitus type 2 presents emergency department for left lower extremity redness/fever. Patient reports that he first noticed the redness on 07/05/2021, patient started taking Bactrim on 07/06/2021 patient with worsening of redness, constitutional symptoms over the course last 24 hours. Patient was evaluated here in the em ergency department found to have significant cellulitis of left lower extremity including the foot and distal leg labs are significant for white blood cell count 12.9 hemoglobin 9.9 hematocrit 36.5 creatinine 1.6 EGFR 46 BUN 24 lactic acid 1.0 procalcitonin level pending negative for left lower extremity DVT x-ray of the left foot pending to rule out osteomyelitis. 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 lives at home with family - Family History Father -: Heart disease, Diabetes Brother -: Cancer, Other (see notes) Notes: Stomach cancer - Social History Smoking Status: Never smoker Alcohol use: No CD- Drugs: No Caffeine use: Yes Place of Residence: Home <Matheus Hurst - Last Filed: 07/09/21 20:03> Date of Service: 07/09/21 <Franco Marquez - Last Filed: 07/13/21 09:35> Allergies No Known Allergies Allergy (Verified 08/13/20 02:00) Home Medications: Gabapentin 300 mg PO TID 07/10/21 Metformin HCl 1,000 mg PO BID 07/10/21 Sulfamethoxazole/Trimethoprim [Sulfamethoxazole-Tmp Ds Tablet] 1 each PO Q12HP 07/10/21 terbinafine HCL [Terbinafine HCl] 250 mg PO DAILY 07/10/21 Review of Systems 10-point ROS is otherwise unremarkable General: Fever, Chills, Malaise Integumentary: Rash, As per HPI <Matheus Hurst - Last Filed: 07/09/21 20:03> Physical Examination - Physical Exam General: Alert, In no apparent distress, Oriented x3 HEENT: Atraumatic, PERRLA, Mucous membr. moist/pink, EOMI, Sclerae nonicteric Neck: Supple, 2+ carotid pulse no bruit, No LAD, Without JVD or thyroid abnormality Respiratory: Clear to auscultation bilaterally, Normal air movement Cardiovascular: Regular rate/rhythm, Normal S1 S2 Gastrointestinal: Normal bowel sounds, No tenderness Musculoskeletal: No tenderness Integumentary: Tenderness/swelling, Erythema, Warmth, Other (Significant cellulitis left lower extremity including foot, diabetic ulceration noted to plantar aspect of left foot) Neurological: Normal speech, Normal strength at 5/5 x4 extr, Normal tone, Normal affect - Studies Laboratory Data (last 24 hrs) 07/09/21 18:40: Amylase 36, Lipase 76 07/09/21 18:40: PT 13.2 H, INR 1.15, APTT 29.4 07/09/21 18:40: Sodium 140, Potassium 4.3, BUN 24 H, Creatinine 1.62 H, Glucose 99, Total Bilirubin 0.5, AST 14 L, ALT 21, Alkaline Phosphatase 82 07/09/21 18:40: WBC 12.90 H, Hgb 11.9 L, Hct 36.5 L, Plt Count 249 <Matheus Hurst - Last Filed: 07/09/21 20:03> Assessment and Plan - Plan Assessment: Cellulitis left lower extremity failed outpatient therapy Renal insufficiency Diabetes mellitus type 2 Plan: Cellulitis left lower extremity failed outpatient therapy: Continue broad- spectrum antibiotics with neomycin/cefepime. Patient also noted to have diabetic ulceration general surgery and wound healing consulted anticipate clinical improvement over the course next 48 to 72 hours. Patient failed outpatient therapy with Bactrim. Renal insufficiency: Continue with IV fluids likely related dehydration consult nephrology as necessary for worsening renal function. Diabetes mellitus type 2: A [facility] Accu-Chek, sliding scale insulin therapy. Patient reports sugars are well controlled at home between 90 and 140 daily. DVT PPX: Full code Code status: Full Discharge Plan: Home Plan to discharge in: Greater than 2 days - Advance Directives Does patient have a Living Will: Yes Does patient have a Durable POA for Healthcare: Yes - Code Status/Comfort Care Code Status Assessed: Yes (full code) Critical Care: No Time Spent Managing Pts Care (In Minutes): 55 <Matheus Hurst - Last Filed: 07/09/21 20:03> - Problems (Diagnosis) (1) Diabetic ulcer of left foot Current Visit: No Status: Chronic Qualifiers: Diabetic foot ulcer location: midfoot Diabetes mellitus type: type 2 Non- pressure ulcer stage: with muscle involvement without evidence of necrosis Qualified Code(s): E11.621 - Type 2 diabetes mellitus with foot ulcer; L97.425 - Non-pressure chronic ulcer of left heel and midfoot with muscle involvement without evidence of necrosis (2) Hyperlipidemia Current Visit: No Status: Chronic Qualifiers: Hyperlipidemia type: unspecified Qualified Code(s): E78.5 - Hyperlipidemia, unspecified (3) Hypertension Current Visit: No Status: Chronic Qualifiers: Hypertension type: essential hypertension Qualified Code(s): I10 - Essential (primary) hypertension (4) Osteomyelitis Onset Date: 12/08/15 Current Visit: No Status: Resolved Qualifiers: Osteomyelitis type: unspecified type Osteomyelitis location: foot Laterality: right Qualified Code(s): M86.9 - Osteomyelitis, unspecified <Franco Marquez - Last Filed: 07/13/21 09:35> Date of Service: 07/09/21 Subjective Agree with HPI as mentioned above Review of Systems 10-point ROS is otherwise unremarkable Physical Examination - Vital Signs Reviewed - Physical Exam General: Alert, In no apparent distress, Oriented x3 Respiratory: Clear to auscultation bilaterally, Normal air movement Cardiovascular: Regular rate/rhythm, Normal S1 S2, Systolic murmur Gastrointestinal: Normal bowel sounds, Soft and benign, Non-distended, No tenderness, No rebound, No guarding Musculoskeletal: No clubbing, No swelling, Tenderness Integumentary: Tenderness/swelling, Erythema, Warmth, Diabetic ulcer Neurological: Cranial nerves 3-12 intact, Abnormal sensation Assessment & Plan - Problems (Diagnosis) (1) Diabetic ulcer of left foot Current Visit: No Status: Chronic Qualifiers: Diabetic foot ulcer location: midfoot Diabetes mellitus type: type 2 Non- pressure ulcer stage: with muscle involvement without evidence of necrosis Qualified Code(s): E11.621 - Type 2 diabetes mellitus with foot ulcer; L97.425 - Non-pressure chronic ulcer of left heel and midfoot with muscle involvement without evidence of necrosis (2) Hyperlipidemia Current Visit: No Status: Chronic Qualifiers: Hyperlipidemia type: unspecified Qualified Code(s): E78.5 - Hyperlipidemia, unspecified (3) Hypertension Current Visit: No Status: Chronic Qualifiers: Hypertension type: essential hypertension Qualified Code(s): I10 - Essential (primary) hypertension (4) Osteomyelitis Onset Date: 12/08/15 Current Visit: No Status: Resolved Qualifiers: Osteomyelitis type: unspecified type Osteomyelitis location: foot Laterality: right Qualified Code(s): M86.9 - Osteomyelitis, unspecified - Plan Continue with plan of care as mentioned below: 1. Continue with IV antibiotic 2. Continue with local wound care 3. Wound care consultation/ID/surgical consultation 4. Gentle IV hydration 5. Monitor CBC 6. Strict blood sugar monitoring 7. Pain control 8. GI and DVT prophylaxis Discharge Plan: Home Plan to discharge in: Greater than 2 days - Advance Directives Does patient have a Living Will: No Does patient have a Durable POA for Healthcare: No - Code Status/Comfort Care Code Status Assessed: Yes Code Status: Full Code Critical Care: No Time Spent Managing PTS Care (In Minutes): 45 <Franco Marquez - Last Filed: 07/13/21 09:35>
--- NOTE | 2021-07-09 20:38 | RAD REPORT ---
EXAM DESCRIPTION: RAD - Chest Single View - 07/09/2021 7:47 pm CLINICAL HISTORY: FEVER COMPARISON: Chest Single View dated 09/08/2017; Chest Single View dated 05/02/2017; Chest Single View d ated 04/30/2017; Chest Single View dated 12/08/2015 FINDINGS: Lines: None. Lungs: No evidence of edema or pneumonia. Pleural: No significant pleural effusions or pneumothorax. Cardiac: The heart size is within normal limits. Bones: No acute fractures. Other: IMPRESSION: No acute cardiopulmonary disease.
--- NOTE | 2021-07-09 20:38 | RAD REPORT ---
EXAM DESCRIPTION: RAD - Foot Left 3 View - 07/09/2021 7:47 pm CLINICAL HISTORY: Pain;Swelling COMPARISON: Extremity Venous Uni Ltd dated 08/12/2020Chest Single View dated 02/26/2021; Chest Single View dated 04/01/2020; Chest Single View dated 07/14/2019; Chest Single View dated 02/09/2019Foot Left 3 View dated 08/12/2020 FINDINGS: No acute fracture. No malalignment. Degenerative changes are present at the first MTP join t. Age indeterminate deformity at the third proximal phalanx. Calcaneal spurring. Vascular calcificat ions. Midfoot degenerative changes. IMPRESSION: No definite acute fracture. Deformity at the third proximal phalanx is favored chronic b ut correlate with point tenderness.
[2021-07-09 22:01] LABS: Urine Blood Negative (Negative); Urine Glucose Negative (Negative); Urine Protein 1+ (Negative); Urine Specific Gravity 1.015 (1.005-1.030)
[2021-07-09 22:18] LABS: Urine Bacteria <20 /HPF (NONE SEEN); Urine RBC <5 /HPF (NONE SEEN)
[2021-07-09 23:30] VITALS: BMI 33.5
[2021-07-09] MEDS ORDERED: CEFEPIME 1 GM/VIAL IV SCH (23:32)
[2021-07-09] MEDS ORDERED: ACETAMINOPHEN 500 MG TAB PO PRN (23:32)
[2021-07-09] MEDS ORDERED: ONDANSETRON 4 MG/2 ML VIAL IV PRN (23:32)
[2021-07-09] MEDS ORDERED: VANCOMYCIN/NS 1 gm 1 GM/250 ML BAG IVPB SCH (23:32)
[2021-07-09] MEDS: INSULIN -REGULAR HUMAN 50 UNIT/0.5 ML ML SQ SCH (23:32)
[2021-07-09] MEDS ORDERED: VANCOMYCIN/NS 1 gm 1 GM/250 ML BAG IVPB ONE (23:45)
[2021-07-10] MEDS: NA CHLORIDE 0.9% 1,000 ML IV SCH ×3 (00:17→19:32)
[2021-07-10] MEDS ORDERED: NA CHLORIDE 0.9% 250 ML ONE (00:24)
[2021-07-10] MEDS ORDERED: VANCOMYCIN 1 GM/VIAL ONE (00:24)
[2021-07-10] MEDS: VANCOMYCIN 2 GM in NA CHLORIDE 0.9% 500 ML IVPB SCH (02:00)
[2021-07-10 05:29] LABS: Hematocrit 31.4 % (39.6-49.0); Lymphocytes % 19.9 % (15.3-44.8); MPV 9.2 fL (7.6-11.3); RBC Red Blood Cell Count 3.45 M/uL (4.33-5.43)
[2021-07-10 05:30] LABS: Basophils % 1.2 % (0-1.3)
[2021-07-10 05:51] LABS: Albumin 2.2 g/dL (3.4-5.0); Bilirubin Total 0.6 mg/dL (0.2-1.0); Potassium 4.3 mmol/L (3.5-5.1); Protein, Total 5.9 g/dL (6.4-8.2)
[2021-07-10] MEDS: INSULIN -REGULAR HUMAN 50 UNIT/0.5 ML ML SQ SCH ×3 (07:30→16:30)
[2021-07-10] MEDS ORDERED: INFLUENZA VACCINE (for 6+ mo) 0.5 ML DOSE IMVAC ONE (08:00)
[2021-07-10] MEDS ORDERED: PNEUMOCOCCAL VACCINE 0.5 ML IMVAC ONE (08:00)
[2021-07-10] MEDS: CEFEPIME 1 GM/100 ML BAG IV SCH ×2 (08:43→21:00)
[2021-07-10] MEDS: ENOXAPARIN 40 MG/0.4 ML SQ SCH (08:43)
[2021-07-10] MEDS ORDERED: CEFEPIME 1 GM in NA CHLORIDE 0.9% 100 ML IV SCH (09:00)
--- NOTE | 2021-07-10 13:10 | RAD REPORT ---
EXAM DESCRIPTION: MRI - Foot Left Wo Cont - 07/10/2021 11:12 am CLINICAL HISTORY: R/O osteomyelitis COMPARISON: Foot Left 3 View dated 07/09/2021 TECHNIQUE: Multiplanar imaging of the left foot performed using T1 weighted, T1 fat saturation, T2 S TIR and T2 fat saturation sequencing. FINDINGS: History indicates healing wound plantar surface the foot not otherwise localized and open wound dorsal surface second toe. Hypointense T1 and hyperintense T2 signal are present in the shaft and head of the first metatarsal. First metatarsal head is fractured. Hypointense T1 and hyperintense T2 signal is present along the fr acture plane. Bridging calcification at the fracture site is not seen. There is significant surroundi ng soft tissue edema. There is prominent fluid in the first MTP joint. Small fluid collections are pr esent along the lateral and medial aspects of the distal shaft first metatarsal. Hypointense T1 and h yperintense T2 signal are present in the first proximal phalanx without cortical disruption or fractu re. First distal phalanx signal characteristics are normal. Soft tissue wound is seen along the dorsal surface of the second toe at the proximal phalanx level. T he phalanges of the second toe show normal marrow signal characteristics. The second metatarsal is un remarkable. The third- fifth metatarsals and phalanges are unremarkable. IMPRESSION: Abnormal signal throughout the head and shaft of the first metatarsal with metatarsal he ad fracture. Joint effusion present in the first MTP joint with small fluid collections along the med ial and lateral margins of the distal first metatarsal shaft. Abnormal signal intensity in the first proximal phalanx. The first metatarsal and toe signal abnormalities are favored to be osteomyelitis with the fracture b eing pathologic from the osteomyelitis rather than reactive edema related to non pathologic fracture. The small fluid collections may simply be reactive fluid. Small soft tissue abscesses cannot be exclu ded. Soft tissue wound along the dorsal surface second toe does not have associated osteomyelitis findings in the phalanges.
[2021-07-10] MEDS: HYDROCODONE/APAP 5/325 MG TAB PO PRN (16:39)
[2021-07-10] MEDS ORDERED: VANCOMYCIN 2 GM in NA CHLORIDE 0.9% 500 ML IVPB SCH (18:00)
[2021-07-11] MEDS: NA CHLORIDE 0.9% 1,000 ML IV SCH ×4 (00:40→09:01)
[2021-07-11] MEDS: INSULIN -REGULAR HUMAN 50 UNIT/0.5 ML ML SQ SCH ×5 (00:41→20:56)
[2021-07-11 05:42] LABS: Absolute Lymphocytes (CBC) 1.2 K/uL (0.7-4.9); Basophils % 0.7 % (0-1.3); Hematocrit 34.5 % (39.6-49.0); Lymphocytes % 19.3 % (15.3-44.8); MPV 9.4 fL (7.6-11.3)
[2021-07-11 06:10] LABS: Albumin 2.4 g/dL (3.4-5.0); Bilirubin Total 0.4 mg/dL (0.2-1.0); Potassium 4.3 mmol/L (3.5-5.1); Protein, Total 6.7 g/dL (6.4-8.2)
[2021-07-11] MEDS: VANCOMYCIN 2 GM in NA CHLORIDE 0.9% 500 ML IVPB SCH (08:49)
[2021-07-11] MEDS: CEFEPIME 1 GM/100 ML BAG IV SCH ×2 (08:50→21:07)
[2021-07-11] MEDS: ENOXAPARIN 40 MG/0.4 ML SQ SCH (08:50)
[2021-07-11] MEDS: GABAPENTIN 300 MG CAP PO SCH ×2 (13:54→21:07)
[2021-07-11] MEDS: METFORMIN HCL 500 MG TAB PO SCH (17:21)
--- NOTE | 2021-07-11 20:32 | P.CNS ---
Date of Consult: 07/11/21 PC: I was asked to see this patient in regards to his foot and a possible abscess. HPC: Patient has had chronic foot problems for period of time. Also has an area on the dorsum of his foot which is a chronic callus. He has been seen by me and numerous other surgeries in the past for diabetic foot issues. Cannot recall an incident that started this 1 off, but his foot is swollen and tender. PSHx: Previous foot surgery PMHx: Diabetes insulin controlled Social Hx: No known allergies Sys R: No cough, wheeze, shortness of breath. No chest pain or palpitations. O/E: Awake alert stable HEENT: Negative Chest: Air entry equal bilaterally Abd: Intact Sunset: On the dorsum of the f foot there is some swelling. Tender to the touch. It has some mild redness to it. No true fluctuance at the moment. On the plantar surface has an area of old callus formation. Data: Patient MRI suggestive of osteomyelitis. The patient is anxious to talk to Dr. Parks the infectious disease specialist before he decides on any course of treatments. Impression: Swelling left foot, possible osteomyelitis Plan: We will await for the infectious disease specialist to have a discussion with the patient. Available if he wants to explore surgical options.
[2021-07-11] MEDS ORDERED: HOME MED 1 EA UNK (Metformin Hcl [Metformin Hcl] 1,000 MG Tablet) PO SCH (21:00)
[2021-07-11] MEDS: HYDROCODONE/APAP 5/325 MG TAB PO PRN (22:01)
[2021-07-12 05:56] LABS: Absolute Lymphocytes (CBC) 1.6 K/uL (0.7-4.9); Basophils % 1.2 % (0-1.3); Hematocrit 33.6 % (39.6-49.0); Lymphocytes % 24.3 % (15.3-44.8); MPV 9.3 fL (7.6-11.3); RBC Red Blood Cell Count 3.71 M/uL (4.33-5.43)
[2021-07-12 06:19] LABS: Albumin 2.4 g/dL (3.4-5.0); Bilirubin Total 0.3 mg/dL (0.2-1.0); C-Reactive Protein 49.3 mg/L (<3.00); Magnesium 2.2 mg/dL (1.8-2.4); Potassium 4.3 mmol/L (3.5-5.1); Protein, Total 6.4 g/dL (6.4-8.2)
[2021-07-12] MEDS: INSULIN -REGULAR HUMAN 50 UNIT/0.5 ML ML SQ SCH ×4 (07:30→20:53)
[2021-07-12] MEDS: METFORMIN HCL 500 MG TAB PO SCH ×2 (09:44→16:29)
[2021-07-12] MEDS: terbinafine HCL 250 MG TAB PO SCH (09:44)
[2021-07-12] MEDS: ENOXAPARIN 40 MG/0.4 ML SQ SCH (09:45)
[2021-07-12] MEDS: GABAPENTIN 300 MG CAP PO SCH ×3 (09:45→20:51)
[2021-07-12] MEDS: CEFEPIME 1 GM/100 ML BAG IV SCH ×2 (09:46→20:51)
--- NOTE | 2021-07-12 10:03 | P.PN ---
Subjective Date of Service: 07/10/21 patient still with erythema and pain on the left foot. Still with some drainage. Possible cellulitis with osteomyelitis. MRI pending. Awaiting surgery consultation and will get Infectious Disease to see the patient as well. Review of Systems 10-point ROS is otherwise unremarkable Physical Examination - Vital Signs Temperature: 97.1 F Blood Pressure: 145/71 Pulse: 67 Respirations: 18 Pulse Ox (%): 99 - Physical Exam General: Alert, In no apparent distress, Oriented x3 Respiratory: Clear to auscultation bilaterally, Normal air movement Cardiovascular: Regular rate/rhythm, Normal S1 S2, Systolic murmur Gastrointestinal: Normal bowel sounds, Soft and benign, Non-distended, No tenderness, No rebound, No guarding Musculoskeletal: No clubbing, No swelling, Tenderness Integumentary: Tenderness/swelling, Erythema, Warmth, Diabetic ulcer Neurological: Cranial nerves 3-12 intact, Abnormal sensation - Studies Medications List Reviewed: Yes Assessment & Plan - Problems (Diagnosis) (1) Diabetic ulcer of left foot Current Visit: No Status: Chronic Qualifiers: Diabetic foot ulcer location: midfoot Diabetes mellitus type: type 2 Non- pressure ulcer stage: with muscle involvement without evidence of necrosis Qualified Code(s): E11.621 - Type 2 diabetes mellitus with foot ulcer; L97.425 - Non-pressure chronic ulcer of left heel and midfoot with muscle involvement without evidence of necrosis (2) Hyperlipidemia Current Visit: No Status: Chronic Qualifiers: Hyperlipidemia type: unspecified Qualified Code(s): E78.5 - Hyperlipidemia, unspecified (3) Hypertension Current Visit: No Status: Chronic Qualifiers: Hypertension type: essential hypertension Qualified Code(s): I10 - Essential (primary) hypertension (4) Osteomyelitis Onset Date: 12/08/15 Current Visit: No Status: Resolved Qualifiers: Osteomyelitis type: unspecified type Osteomyelitis location: foot Laterality: right Qualified Code(s): M86.9 - Osteomyelitis, unspecified - Plan 1. Continue with IV antibiotic 2. Continue with local wound care 3. Wound care consultation/ID/surgical consultation 4. Gentle IV hydration 5. Monitor CBC 6. Strict blood sugar monitoring 7. Pain control 8. GI and DVT prophylaxis Discharge Plan: Home Plan to discharge in: Greater than 2 days - Advance Directives Does patient have a Living Will: No Does patient have a Durable POA for Healthcare: No - Code Status/Comfort Care Code Status Assessed: Yes Code Status: Full Code Critical Care: No Time Spent Managing PTS Care (In Minutes): 45
--- NOTE | 2021-07-12 10:11 | P.PN ---
Date of Service: 07/11/21 Subjective MRI showed osteomyelitis. Patient has been advised that he needs IV antibiotic therapy. May need debridement of the wound as well. Seen by General surgery and at this time wait for Infectious Disease consultation. Review of Systems 10-point ROS is otherwise unremarkable Physical Examination - Vital Signs Reviewed - Physical Exam General: Alert, In no apparent distress, Oriented x3 Respiratory: Clear to auscultation bilaterally, Normal air movement Cardiovascular: Regular rate/rhythm, Normal S1 S2, Systolic murmur Gastrointestinal: Normal bowel sounds, Soft and benign, Non-distended, No tenderness, No rebound, No guarding Musculoskeletal: No clubbing, No swelling, Tenderness Integumentary: Tenderness/swelling, Erythema, Warmth, Diabetic ulcer Neurological: Cranial nerves 3-12 intact, Abnormal sensation Assessment & Plan - Problems (Diagnosis) (1) Diabetic ulcer of left foot Current Visit: No Status: Chronic Qualifiers: Diabetic foot ulcer location: midfoot Diabetes mellitus type: type 2 Non- pressure ulcer stage: with muscle involvement without evidence of necrosis Qualified Code(s): E11.621 - Type 2 diabetes mellitus with foot ulcer; L97.425 - Non-pressure chronic ulcer of left heel and midfoot with muscle involvement without evidence of necrosis (2) Hyperlipidemia Current Visit: No Status: Chronic Qualifiers: Hyperlipidemia type: unspecified Qualified Code(s): E78.5 - Hyperlipidemia, unspecified (3) Hypertension Current Visit: No Status: Chronic Qualifiers: Hypertension type: essential hypertension Qualified Code(s): I10 - E ssential (primary) hypertension (4) Osteomyelitis Onset Date: 12/08/15 Current Visit: No Status: Resolved Qualifiers: Osteomyelitis type: unspecified type Osteomyelitis location: foot Laterality: right Qualified Code(s): M86.9 - Osteomyelitis, unspecified - Plan Continue plan of care as mentioned below: 1. Continue with IV antibiotic 2. Continue with local wound care 3. Wound care consultation/ID/surgical consultation; awaiting Infectious Disease consultation. Patient wanting oral antibiotic therapy 4. Gentle IV hydration 5. Monitor CBC 6. Strict blood sugar monitoring 7. Pain control 8. GI and DVT prophylaxis
--- NOTE | 2021-07-12 10:11 | P.PN ---
Date of Service: 07/12/21 Subjective Patient continues to improve. Patient is agreeable to PICC line placement. Review of Systems 10-point ROS is otherwise unremarkable Physical Examination - Vital Signs Reviewed - Physical Exam General: Alert, In no apparent distress, Oriented x3 Respiratory: Clear to auscultation bilaterally, Normal air movement Cardiovascular: Regular rate/rhythm, Normal S1 S2, Systolic murmur Gastrointestinal: Normal bowel sounds, Soft and benign, Non-distended, No tenderness, No rebound, No guarding Musculoskeletal: No clubbing, No swelling, Tenderness Integumentary: Tenderness/swelling, Erythema, Warmth, Diabetic ulcer Assessment & Plan - Problems (Diagnosis) (1) Diabetic ulcer of left foot Current Visit: No Status: Chronic Qualifiers: Diabetic foot ulcer location: midfoot Diabetes mellitus type: type 2 Non- pressure ulcer stage: with muscle involvement without evidence of necrosis Qualified Code(s): E11.621 - Type 2 diabetes mellitus with foot ulcer; L97.425 - Non-pressure chronic ulcer of left heel and midfoot with muscle involvement without evidence of necrosis (2) Hyperlipidemia Current Visit: No Status: Chronic Qualifiers: Hyperlipidemia type: unspecified Qualified Code(s): E78.5 - Hyperlipidemia, unspecified (3) Hypertension Current Visit: No Status: Chronic Qualifiers: Hypertension type: essential hypertension Qualified Code(s): I10 - Essential (primary) hypertension (4) Osteomyelitis Onset Date: 12/08/15 Current Visit: No Status: Resolved Qualifiers: Osteomyelitis type: unspecified type Osteomyelitis location: foot Laterality: right Qualified Code(s): M86.9 - Osteomyelitis, unspecified - Plan Continue plan of care as mentioned below: 1. Continue with IV antibiotic 2. Continue with local wound care 3. Wound care consultation/ID/surgical consultation; patient agreeable to IV antibiotic therapy 4. Hep-Lock IV 5. Monitor CBC 6. Strict blood sugar monitoring 7. Pain control 8. GI and DVT prophylaxis
--- NOTE | 2021-07-12 10:13 | P.CNS ---
Date of Consult: 07/12/21 Chief Complaint: Cellulitis LLE History of Present Illness: The patient is a 46-year-old male with a past medical history of the diabetes, renal insufficiency, and anemia who presented to the emergency department secondary to left great toe erythema swelling and pain. Of note patient also has chronic diabetic foot ulcer to plantar aspect of his foot. Patient followed up with his primary care physician and was prescribed Bactrim for possible cellulitis of his right great hallux. However the redness and swelling continued to worsen and as such the patient presented to the emergency department. MRI performed on 07/10 showed osteomyelitis of the 1st metatarsal head with pathological fracture. Osteomyelitis is secondary to the patient's chronic diabetic foot ulcer, however foot ulcer is improving/healing. Wound cultures pending, blood culture showed no growth at 12:00 p.m.. Inflammatory markers elevated, CRP 49.3, ESR 28. Procalcitonin insignificant. Patient currently denies nausea/vomiting//or breast/chest pain. Patient denies pain to the wounds site however does have diabetic neuropathy with decreased sensation to that area peer Allergies No Known Allergies Allergy (Verified 08/13/20 02:00) Home Medications: Gabapentin 300 mg PO TID 07/10/21 Metformin HCl 1,000 mg PO BID 07/10/21 Sulfamethoxazole/Trimethoprim [Sulfamethoxazole-Tmp Ds Tablet] 1 each PO Q12HP 07/10/21 terbinafine HCL [Terbinafine HCl] 250 mg PO DAILY 07/10/21 - Past Medical/Surgical History Diabetic: Yes -: Diabetes -: HTN -: meningitis -: Diabetic neuropathy -: gastric sleeve -: right foot-debridement Psychosocial/ Personal History: 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 lives at home with family - Family History Father Medical History: Heart disease, Diabetes Brother Medical History: Cancer, Other (see notes) Notes: Stomach cancer - Social History Smoking Status: Unknown if ever smoked Alcohol use: No CD- Drugs: No Caffeine use: Yes Place of Residence: Home Review of Systems 10-point ROS is otherwise unremarkable Physical Examination Temp Pulse Resp BP Pulse Ox 97.1 F 67 18 145/71 H 99 07/12/21 10:03 07/12/21 10:03 07/12/21 10:03 07/12/21 10:03 07/12/21 10:03 General: Alert, In no apparent distress, Cachectic, Obese HEENT: Atraumatic, Normocephalic Neck: Supple, 2+ carotid pulse no bruit Respiratory: Clear to auscultation bilaterally, Normal air movement Cardiovascular: No edema, Normal pulses, Regular rate/rhythm, Normal S1 S2 Capillary refill: <2 Seconds Gastrointestinal: Normal bowel sounds, Soft and benign, Non-distended Musculoskeletal: No clubbing, No contractures Integumentary: Diabetic ulcer (Noted plantar aspect of the left foot. Wound measures 1.5 x 1.4 x 0.2 cm. Base of wound shows 100% pink granulation tissue, magui wound tissue with callus formation. Wound edges approximating.) Conclusions/Impression: Antibiotics: Vancomycin Start: 07/12 Cefepime Start: 07/10 Assessment/plan Chronic left plantar diabetic foot ulcer with osteomyelitis MRI performed on 07/10 confirmed osteomyelitis of the 1st metatarsal head with pathological fracture. Patient is agreeable to PICC line placement and 6 weeks of IV antibiotic therapy to treat osteomyelitis. At this time continue empiric coverage with vancomycin and cefepime, will tailor antibiotics based off of wound culture report. Continue to trend inflammatory markers. Patient will need weekly labs and follow up with PCP. Weekly labs include: Vancomycin trough level, CRP, ESR, and CBC, and BMP. Current wound care to area includes: Apply Medihoney, cover with gauze, wrapped with Kerlix. Change Q Saturday day Saturday or p.r.n. if soiled removed. Obesity Diabetes Leukocytosis Anemia Renal insufficiency Protein caloric malnutrition -medical management per primary team -continue monitor CBC and BMP -plan of care discussed with Dr. Choudhury Thank you for consultation.
[2021-07-12] MEDS: VANCOMYCIN 2 GM in NA CHLORIDE 0.9% 500 ML IVPB SCH (11:59)
[2021-07-12] MEDS ORDERED: PNEUMOCOCCAL VACCINE 0.5 ML IMVAC ONE (17:00)
[2021-07-12] MEDS ORDERED: INFLUENZA VACCINE (for 6+ mo) 0.5 ML DOSE IMVAC ONE (17:00)
--- NOTE | 2021-07-12 21:59 | RAD REPORT ---
EXAM DESCRIPTION: RAD - Chest Single View - 07/12/2021 9:34 pm CLINICAL HISTORY: PICC line placement COMPARISON: None. FINDINGS: Portable chest was obtained following placement of a right upper extremity PICC line. The catheter tip is in the mid SVC.
[2021-07-13] MEDS: HYDROCODONE/APAP 5/325 MG TAB PO PRN ×2 (03:37→17:10)
[2021-07-13 06:19] LABS: Albumin 2.6 g/dL (3.4-5.0); Bilirubin Total 0.3 mg/dL (0.2-1.0); Potassium 4.1 mmol/L (3.5-5.1); Protein, Total 6.7 g/dL (6.4-8.2)
[2021-07-13] MEDS: INSULIN -REGULAR HUMAN 50 UNIT/0.5 ML ML SQ SCH ×4 (07:30→20:25)
--- NOTE | 2021-07-13 09:36 | P.PN ---
Date of Service: 07/13/21 Subjective Patient's erythema has improved. Continue with antibiotic therapy. Anticipate discharge in a.m. Review of Systems 10-point ROS is otherwise unremarkable Physical Examination - Vital Signs Reviewed - Physical Exam General: Alert, In no apparent distress, Oriented x3 Respiratory: Clear to auscultation bilaterally, Normal air movement Cardiovascular: Regular rate/rhythm, Normal S1 S2, Systolic murmur Gastrointestinal: Normal bowel sounds, Soft and benign, Non-distended, No tenderness, No rebound, No guarding Musculoskeletal: No clubbing, No swelling, Tenderness Integumentary: Tenderness/swelling, Erythema, Warmth, Diabetic ulcer Assessment & Plan - Problems (Diagnosis) (1) Diabetic ulcer of left foot Current Visit: No Status: Chronic Qualifiers: Diabetic foot ulcer location: midfoot Diabetes mellitus type: type 2 Non- pressure ulcer stage: with muscle involvement without evidence of necrosis Qualified Code(s): E11.621 - Type 2 diabetes mellitus with foot ulcer; L97.425 - Non-pressure chronic ulcer of left heel and midfoot with muscle involvement without evidence of necrosis (2) Hyperlipidemia Current Visit: No Status: Chronic Qualifiers: Hyperlipidemia type: unspecified Qualified Code(s): E78.5 - Hyperlipidemia, unspecified (3) Hypertension Current Visit: No Status: Chronic Qualifiers: Hypertension type: essential hypertension Qualified Code(s): I10 - Essenti al (primary) hypertension (4) Osteomyelitis Onset Date: 12/08/15 Current Visit: No Status: Resolved Qualifiers: Osteomyelitis type: unspecified type Osteomyelitis location: foot Laterality: right Qualified Code(s): M86.9 - Osteomyelitis, unspecified - Plan Continue plan of care as mentioned below: 1. Continue with IV antibiotic 2. Continue with local wound care 3. Arrange for PICC line placement and outpatient IV antibiotics 4. Hep-Lock IV 5. Monitor CBC 6. Strict blood sugar monitoring 7. Pain control 8. GI and DVT prophylaxis
--- NOTE | 2021-07-13 09:44 | P.PN ---
Subjective Date of Service: 07/13/21 Chief Complaint: Cellulitis LLE Patient seen examined at bedside, right arm PICC line placed. Patient denies pain to area. Review of Systems 10-point ROS is otherwise unremarkable Physical Examination - Vital Signs Temperature: 97.1 F Blood Pressure: 179/87 Pulse: 62 Respirations: 18 Pulse Ox (%): 98 - Studies Microbiology 07/09/21 18:50 Wound - Left Foot Culture & Sensitivity - Preliminary Gram Neg Lonnie 07/09/21 18:40 Blood - Blood Aerobic Blood Culture - Preliminary No growth in 24 hours. 07/09/21 18:40 Blood - Blood Anaerobic Blood Culture - Preliminary No growth in 24 hours. 07/09/21 18:51 Blood - Blood Aerobic Blood Culture - Preliminary No growth in 24 hours. 07/09/21 18:51 Blood - Blood Anaerobic Blood Culture - Preliminary No growth in 24 hours. Medications List Reviewed: Yes Assessment And Plan - Plan Physical exam: General: Alert, In no apparent distress, Cachectic, Obese HEENT: Atraumatic, Normocephalic Neck: Supple, 2+ carotid pulse no bruit Respiratory: Clear to auscultation bilaterally, Normal air movement Cardiovascular: No edema, Normal pulses, Regular rate/rhythm, Normal S1 S2 Capillary refill: <2 Seconds Gastrointestinal: Normal bowel sounds, Soft and benign, Non-distended Musculoskeletal: No clubbing, No contractures Integumentary: Diabetic ulcer (Noted plantar aspect of the left foot. Wound measures 1.5 x 1.4 x 0.2 cm. Base of wound shows 100% pink granulation tissue, magui wound tissue with callus formation. Wound edges approximating.) Conclusions/Impression: Antibiotics: Vancomycin Start: 07/12 Cefepime Start: 07/10 Assessment/plan Chronic left plantar diabetic foot ulcer with osteomyelitis MRI performed on 07/10 confirmed osteomyelitis of the 1st metatarsal head with pathological fracture. Patient is agreeable to PICC line placement and 6 weeks of IV antibiotic therapy to treat osteomyelitis. At this time continue empiric coverage with vancomycin and cefepime, will tailor antibiotics based off of wound culture report. Preliminary report growing alpha hemolytic streptococci species and gram-negative rods. Continue to trend inflammatory markers. Patient will need weekly labs and follow up with PCP. Weekly labs include: Vancomycin trough level, CRP, ESR, and CBC, and BMP. Current wound care to area includes: Apply Medihoney, cover with gauze, wrapped with Kerlix. Change Q Saturday or p.r.n. if soiled removed. Obesity Diabetes Leukocytosis Anemia Renal insufficiency Protein caloric malnutrition -medical management per primary team -continue monitor CBC and BMP -plan of care discussed with Dr. Choudhury Thank you for consultation.
[2021-07-13] MEDS: CEFEPIME 1 GM/100 ML BAG IV SCH ×2 (10:09→20:24)
[2021-07-13] MEDS: GABAPENTIN 300 MG CAP PO SCH ×3 (10:10→20:25)
[2021-07-13] MEDS: METFORMIN HCL 500 MG TAB PO SCH ×2 (10:11→17:06)
[2021-07-13] MEDS: ENOXAPARIN 40 MG/0.4 ML SQ SCH (10:12)
[2021-07-13 10:58] VITALS: O2SAT 98
[2021-07-13] MEDS ORDERED: Levofloxacin500mg IV 500 MG/100 ML BAG IV SCH (13:00)
[2021-07-13] MEDS: VANCOMYCIN 2 GM in NA CHLORIDE 0.9% 500 ML IVPB SCH (13:14)
[2021-07-13] MEDS: terbinafine HCL 250 MG TAB PO SCH (14:08)
[2021-07-13] MEDS ORDERED: HYDRALAZINE HCL 20 MG/ML VIAL IV PRN (15:59)
[2021-07-13] MEDS: HYDRALAZINE HCL 25 MG TABLET PO SCH (20:25)
[2021-07-14] MEDS: INSULIN -REGULAR HUMAN 50 UNIT/0.5 ML ML SQ SCH ×3 (07:30→16:30)
[2021-07-14] MEDS: terbinafine HCL 250 MG TAB PO SCH (09:43)
[2021-07-14] MEDS: ENOXAPARIN 40 MG/0.4 ML SQ SCH (09:43)
[2021-07-14] MEDS: GABAPENTIN 300 MG CAP PO SCH ×2 (09:44→16:40)
[2021-07-14] MEDS: METFORMIN HCL 500 MG TAB PO SCH ×2 (09:44→16:36)
[2021-07-14] MEDS: HYDRALAZINE HCL 25 MG TABLET PO SCH ×2 (09:44→16:36)
[2021-07-14] MEDS: CEFEPIME 1 GM/100 ML BAG IV SCH (09:44)
--- NOTE | 2021-07-14 10:19 | P.PN ---
Subjective Date of Service: 07/14/21 Chief Complaint: Cellulitis LLE Patient seen examined at bedside, wound culture report growing Enterococcus faecalis and Achromobacter xylosoxidans, antibiotic recommendations adjusted. Review of Systems 10-point ROS is otherwise unremarkable Physical Examination - Vital Signs Temperature: 97.6 F Blood Pressure: 159/83 Pulse: 68 Respirations: 18 Pulse Ox (%): 99 - Studies Laboratory Last Values WBC 12.90 K/uL (4.3-10.9) H 07/09/21 18:40 RBC 4.05 M/uL (4.33-5.43) L 07/09/21 18:40 Hgb 11.9 g/dL (13.6-17.9) L 07/09/21 18:40 Hct 36.5 % (39.6-49.0) L 07/09/21 18:40 MCV 90.2 fL (80-100) 07/09/21 18:40 MCH 29.3 pg (27.0-35.0) 07/09/21 18:40 MCHC 32.4 g/dL (32.0-36.0) 07/09/21 18:40 RDW 14.4 % (12.1-15.2) 07/09/21 18:40 Plt Count 249 K/uL (152-406) 07/09/21 18:40 MPV 9.7 fL (7.6-11.3) 07/09/21 18:40 Neutrophils % 86.4 % (41.7-73.7) H 07/09/21 18:40 Lymphocytes % 4.6 % (15.3-44.8) L 07/09/21 18:40 Monocytes % 5.4 % (3.3-12.3) 07/09/21 18:40 Eosinophils % 0.8 % (0-4.4) 07/09/21 18:40 Basophils % 2.8 % (0-1.3) H 07/09/21 18:40 Absolute Neutrophils 11.1 K/uL (1.8-8.0) H 07/09/21 18:40 Absolute Lymphocytes 0.6 K/uL (0.7-4.9) L 07/09/21 18:40 Absolute Monocytes 0.7 K/uL (0.1-1.3) 07/09/21 18:40 Absolute Eosinophils 0.1 K/uL (0-0.5) 07/09/21 18:40 Absolute Basophils 0.4 K/uL (0-0.5) 07/09/21 18:40 PT 13.2 SECONDS (9.5-12.5) H 07/09/21 18:40 INR 1.15 07/09/21 18:40 APTT 29.4 SECONDS (24.3-36.9) 07/09/21 18:40 Sodium 140 mmol/L (136-145) 07/09/21 18:40 Potassium 4.3 mmol/L (3.5-5.1) 07/09/21 18:40 Chloride 107 mmol/L (98-107) 07/09/21 18:40 Carbon Dioxide 24 mmol/L (21-32) 07/09/21 18:40 BUN 24 mg/dL (7-18) H 07/09/21 18:40 Creatinine 1.62 mg/dL (0.55-1.3) H 07/09/21 18:40 Estimated GFR 46 mL/min (=/>90) L 07/09/21 18:40 Glucose 99 mg/dL (74-106) 07/09/21 18:40 POC Glucose 94 mg/dL (65-120) 07/09/21 19:53 Lactic Acid 1.0 mmol/L (0.4-2.0) 07/09/21 18:51 Calcium 8.4 mg/dL (8.5-10.1) L 07/09/21 18:40 Total Bilirubin 0.5 mg/dL (0.2-1.0) 07/09/21 18:40 AST 14 U/L (15-37) L 07/09/21 18:40 ALT 21 U/L (12-78) 07/09/21 18:40 Alkaline Phosphatase 82 U/L (45-117) 07/09/21 18:40 Creatine Kinase 69 U/L (39-308) 07/09/21 18:40 CK-MB (CK-2) < 1.0 ng/mL (1.0-3.6) L 07/09/21 18:40 Rapid Troponin I < 0.02 ng/mL (0.0-0.045) 07/09/21 18:40 Serum Total Protein 7.1 g/dL (6.4-8.2) 07/09/21 18:40 Albumin 2.9 g/dL (3.4-5.0) L 07/09/21 18:40 Globulin 4.2 g/dL (2.3-3.5) H 07/09/21 18:40 Albumin/Globulin Ratio 0.7 (1.1-1.8) L 07/09/21 18:40 Amylase 36 U/L (25-115) 07/09/21 18:40 Lipase 76 U/L (73-393) 07/09/21 18:40 Procalcitonin 0.06 ng/mL (<0.050) H 07/09/21 18:40 SARS-CoV-2 Rap RNA(RT-PCR) Negative (NEGATIVE) 07/09/21 18:50 Microbiology Data (last 24 hrs): 07/09/21 18:50 Wound - Left Foot Gram Stain - Final 07/09/21 18:50 Wound - Left Foot Culture & Sensitivity - Final Enterococcus Faecalis Achromobacter Xylosoxidans Gram Neg Lonnie Medications List Reviewed: Yes Assessment And Plan - Plan Physical exam: General: Alert, In no apparent distress, Cachectic, Obese HEENT: Atraumatic, Normocephalic Neck: Supple, 2+ carotid pulse no bruit Respiratory: Clear to auscultation bilaterally, Normal air movement Cardiovascular: No edema, Normal pulses, Regular rate/rhythm, Normal S1 S2 Capillary refill: <2 Seconds Gastrointestinal: Normal bowel sounds, Soft and benign, Non-distended Musculoskeletal: No clubbing, No contractures Integumentary: Diabetic ulcer (Noted plantar aspect of the left foot. Wound measures 1.5 x 1.4 x 0.2 cm. Base of wound shows 100% pink granulation tissue, magui wound tissue with callus formation. Wound edges approximating.) Conclusions/Impression: Antibiotics: Vancomycin Start: 07/12 Cefepime Start: 07/10 Assessment/plan Chronic left plantar diabetic foot ulcer with osteomyelitis MRI performed on 07/10 confirmed osteomyelitis of the 1st metatarsal head with pathological fracture. Patient is agreeable to PICC line placement and 6 weeks of IV antibiotic therapy to treat osteomyelitis. Wound culture growing Enterococcus faecalis and Achromobacter xylosoxidans. Recommend 6 weeks of IV unison and a Levaquin. Continue to trend inflammatory markers. Patient will need weekly labs and follow up with PCP. Weekly labs include: CRP, ESR, and CBC, and BMP. Current wound care to area includes: Apply Medihoney, cover with gauze, wrapped with Kerlix. Change Q Saturday or p.r.n. if soiled removed. Obesity Diabetes Leukocytosis Anemia Renal insufficiency Protein caloric malnutrition -medical management per primary team -continue monitor CBC and BMP -plan of care discussed with Dr. Choudhury Thank you for consultation.
[2021-07-14] MEDS: VANCOMYCIN 2 GM in NA CHLORIDE 0.9% 500 ML IVPB SCH (12:10)
[2021-07-14] MEDS ORDERED: AMPICILLIN/SULBACT 3 GM in NA CHLORIDE 0.9% 100 ML IVPB ONE (15:45)
[2021-07-14] MEDS ORDERED: Levofloxacin500mg IV 500 MG/100 ML BAG IV ONE (16:00)
[2021-07-14] MEDS: HYDROCODONE/APAP 5/325 MG TAB PO PRN (16:54)
[2021-07-14 17:57] VITALS: BP 162/83; TEMP 97.9
--- NOTE | 2021-07-16 20:13 | P.DS ---
Discharge Date: 07/14/21 Disposition: ROUTINE DISCHARGE Discharge Condition: GOOD Reason for Admission: Cellulitis LLE - Problems (1) Diabetic ulcer of left foot Status: Chronic Qualifiers: Diabetic foot ulcer location: midfoot Diabetes mellitus type: type 2 Non- pressure ulcer stage: with muscle involvement without evidence of necrosis Qualified Code(s): E11.621 - Type 2 diabetes mellitus with foot ulcer; L97.425 - Non-pressure chronic ulcer of left heel and midfoot with muscle involvement without evidence of necrosis (2) Hyperlipidemia Status: Chronic Qualifiers: Hyperlipidemia type: unspecified Qualified Code(s): E78.5 - Hyperlipidemia, unspecified (3) Hypertension Status: Chronic Qualifiers: Hypertension type: essential hypertension Qualified Code(s): I10 - Essential (primary) hypertension (4) Osteomyelitis Onset Date: 12/08/15 Status: Resolved Qualifiers: Osteomyelitis type: unspecified type Osteomyelitis location: foot Laterality: right Qualified Code(s): M86.9 - Osteomyelitis, unspecified Brief History of Present Illness: Patient is a 46-year-old male with history of diabetes mellitus type 2 presents emergency department for left lower extremity redness/fever. Patient reports that he first noticed the redness on 07/05/2021, patient started taking Bactrim on 07/06/2021 patient with worsening of redness, constitutional symptoms over the course last 24 hours. Patient was evaluated here in the emergency department found to have significant cellulitis of left l ower extremity including the foot and distal leg labs are significant for white blood cell count 12.9 hemoglobin 9.9 hematocrit 36.5 creatinine 1.6 EGFR 46 BUN 24 lactic acid 1.0 procalcitonin level pending negative for left lower extremity DVT x-ray of the left foot pending to rule out osteomyelitis. Patient vital signs stable not hypotensive does not appear septic, ED provider wishes to admit for left lower extremity cellulitis with diabetic ulceration Hospital Course: Patient's clinical symptoms are improved. Plan to discharge with a PICC line and IV antibiotics. Patient will follow up with home health care. Vital Signs/Physical Exam: Temp Pulse Resp BP Pulse Ox 97.9 F 80 20 162/83 H 99 07/14/21 16:00 07/14/21 16:00 07/14/21 16:00 07/14/21 16:00 07/14/21 16:00 General: Alert, In no apparent distress, Oriented x3 Laboratory Data at Discharge: WBC 6.70 K/uL (4.3-10.9) 07/12/21 05:40 Hgb 11.0 g/dL (13.6-17.9) L 07/12/21 05:40 Hct 33.6 % (39.6-49.0) L 07/12/21 05:40 Plt Count 262 K/uL (152-406) 07/12/21 05:40 PT 13.2 SECONDS (9.5-12.5) H 07/09/21 18:40 INR 1.15 07/09/21 18:40 APTT 29.4 SECONDS (24.3-36.9) 07/09/21 18:40 Sodium 143 mmol/L (136-145) 07/13/21 05:31 Potassium 4.1 mmol/L (3.5-5.1) 07/13/21 05:31 BUN 16 mg/dL (7-18) 07/13/21 05:31 Creatinine 1.08 mg/dL (0.55-1.3) 07/13/21 05:31 Glucose 92 mg/dL (74-106) 07/13/21 05:31 Magnesium Cancelled 07/12/21 06:00 Total Bilirubin 0.3 mg/dL (0.2-1.0) 07/13/21 05:31 AST 8 U/L (15-37) L 07/13/21 05:31 ALT 16 U/L (12-78) 07/13/21 05:31 Alkaline Phosphatase 75 U/L (45-117) 07/13/21 05:31 Amylase 36 U/L (25-115) 07/09/21 18:40 Lipase 76 U/L (73-393) 07/09/21 18:40 Home Medications: Gabapentin 300 mg PO TID 07/10/21 Metformin HCl 1,000 mg PO BID 07/10/21 Sulfamethoxazole/Trimethoprim [Sulfamethoxazole-Tmp Ds Tablet] 1 each PO Q12HP 07/10/21 terbinafine HCL [Terbinafine HCl] 250 mg PO DAILY 07/10/21 Hydralazine [Apresoline*] 25 mg PO TID #30 tab 11/19/21 Hydrocodone 5/APAP 325 [[place] 5/325*] 1 tab PO Q6H PRN #30 tab 07/14/21 New Medications: Hydralazine [Apresoline*] 25 mg PO TID #30 tab Hydrocodone 5/APAP 325 [[place] 5/325*] 1 tab PO Q6H PRN #30 tab PRN Reason: Pain Scale 5-7 (Moderate) Physician Discharge Instructions: OK TO DC IV AND DC HOME FOLLOW-UP WITH PRIMARY CARE PROVIDER IN 1-2 WEEKS FOLLOW-UP WITH wound healing Center IN 1-2 WEEKS RETURN TO THE ER IF symptoms worsen CALL or TEXT DR. SALAS AT [phone] IF ANY QUESTIONS REGARDING HOSPITAL STAY. PLEASE CALL THE FLOOR AT [phone] IF ANY MEDICATION OR NURSING QUESTIONS. Diet: ADA Activity: Fall precautions Followup: ERNA HICKS [Primary Care Provider] - Time spent managing pt's care (in minutes): 35
== END 2021-07-14 19:15 | disposition home or self-care (01) | DRG 638 ==
LOC: ER 17:52 → ERHOLD 20:17 → 2ND 22:13
PROVIDERS: ADMIT Hospitalist; ATTEND Hospitalist
PROC: 02HV33Z Insertion of Infusion Device into Superior Vena Cava, Percutaneous Approach (ICD-10-PCS; principal; 2021-07-12)
DX: E11.69 Type 2 diabetes mellitus with other specified complication (principal); M86.8X7 Other osteomyelitis, ankle and foot; L97.425 Non-pressure chronic ulcer of left heel and midfoot with muscle involvement without evidence of necrosis; L03.116 Cellulitis of left lower limb; M84.675A Pathological fracture in other disease, left foot, initial encounter for fracture; E46 Unspecified protein-calorie malnutrition; B95.2 Enterococcus as the cause of diseases classified elsewhere; B96.89 Other specified bacterial agents as the cause of diseases classified elsewhere; E11.621 Type 2 diabetes mellitus with foot ulcer; I10 Essential (primary) hypertension; E78.5 Hyperlipidemia, unspecified; N28.9 Disorder of kidney and ureter, unspecified; E66.9 Obesity, unspecified; Z68.33 Body mass index [BMI] 33.0-33.9, adult; E11.40 Type 2 diabetes mellitus with diabetic neuropathy, unspecified; D64.9 Anemia, unspecified; Z20.822 Contact with and (suspected) exposure to COVID-19
CPT/HCPCS: 36415; 36569; 71045; 80053; 80202; 81003; 81015; 82150; 82550; 82553; 82947; 83036; 83605; 83690; 83735; 84145; 84484; 85025; 85610; 85652; 85730; 86140; 87040; 87070; 87077; 87186; 87205; 93005; 93971; 99251; 99285; J0295; J0360; J0692; J1650; J2405; J3370; J7030; J7040; J7050; U0003

== ENCOUNTER 2024-09-26 15:20 | Inpatient (IN) | payer BC ==
--- OUTSIDE RECORDS SUMMARY | 2024-09-26 15:23 | XMS REPORT | Continuity of Care Document ---
Author Name Unknown Address [address] [facility] [address] [place] [address] [facility] thconnect Address [address] [facility] [place] [address] Care Team Providers Care Tin Worker Name Role Phone Allan SANDERS, Carolyn Primary Care Physician SYLVIA SALAZAR Attending Clinician Unava ilcyril Medications Ordered Medication Name Filled Medication Name Start Date Stop Date Current Medication? Ordering Clinician Indication Dosage Frequency Signature (SIG) Comments Components Source gabapentin 600 mg tablet 01-21 00:00: 00 Yes 1mg Josh Kelsey gabapentin 300 mg capsule 01-21 00:00: 00 Yes 1mg Josh Kelsey carvedilol 6.25 mg tablet 01-07 00:00: 00 Yes mg Josh Kelsey amlodipine 10 mg tablet 01-07 00:00: 00 Yes mg Josh Kelsey hydrocodone 7.5 mg-acetamin ophen 325 mg tablet 01-07 00:00: 00 Yes mg Josh Kelsey docusate sodium 100 mg capsule 01-07 00:00: 00 Yes mg Josh Kelsey zinc sulfate 50 mg zinc (220 mg) capsule 01-07 00:00: 00 Yes (220 mg) Josh Kelsey Vital Signs Vital Name Observation Time Observation Value Comments S kirsten BP Systolic 2024-02-11 14:02:00 150 mm[Hg] Step hen F Low BP Diastolic 2024-02-11 14:02:00 78 mm[Hg] Barrett phen F Low Weight Measured 2024-02-11 14:02:00 272.00 pounds Josh F Low Height Measured 2024-02-11 14:02:00 68.00 inches Josh F Low Body Temperature 2024-02-11 14:02:00 97.80 degrees Josh F Low Heart Rate 2024-02-11 14:02:00 87.00 /min Candice en F Low Respiratory Rate 2024-02-11 14:02:00 18.00 /min Josh F Low BP Systolic 2024-01-22 14:12:00 138 mm[Hg] Step hen F Low BP Diastolic 2024-01-22 14:12:00 80 mm[Hg] Barrett phen F Low Weight Measured 2024-01-22 14:12:00 265.00 pounds Josh F Low Height Measured 2024-01-22 14:12:00 68.00 inches Josh F Low Body Temperature 2024-01-22 14:12:00 97.80 degrees Josh F Low Heart Rate 2024-01-22 14:12:00 87.00 /min Candice en F Low Respiratory Rate 2024-01-22 14:12:00 18.00 /min Josh F Low Respiratory Rate 2024-01-10 14:50:00 18.00 /min Josh F Low BP Systolic 2024-01-10 14:50:00 150 mm[Hg] Step hen F Low BP Diastolic 2024-01-10 14:50:00 80 mm[Hg] Barrett phen F Low Weight Measured 2024-01-10 14:50:00 266.00 pounds Josh F Low Height Measured 2024-01-10 14:50:00 68.00 inches Josh F Low Body Temperature 2024-01-10 14:50:00 98.20 degrees Josh F Low Heart Rate 2024-01-10 14:50:00 82.00 /min Candice en F Low Encounters Start Date/Time End Date/Time Encounter Type Admission Type Attending [facility] Care Department Encounter ID Source 2024-02-11 13:58:25 2024-02-11 13:58:25 Outpatient [facility] [id number] Josh F Low 2024-02-11 00:00:00 2024-02-11 00:00:00 Outpatient Visit SFA [id number] Josh Kelsey 2024-01-22 14:07:18 2024-01-22 14:07:18 Outpatient SFA SFA [id number] Josh Kelsey 2024-01-22 00:00:00 2024-01-22 00:00:00 Outpatient Visit SFA [id number] Josh Kelsey 2024-01-10 15:06:38 2024-01-10 15:06:38 Outpatient [facility] [id number] Josh Kelsey 2024-01-10 00:00:00 2024-01-10 00:00:00 Outpatient Visit SFA [id number] Josh Kelsey 2021-12-11 05:16:00 2021-12-11 11:53:00 Emergency E ALCANTER, SYLVIA MHBL MHBL [id number] MHBL
[2024-09-26] MEDS ORDERED: MORPHINE 4 MG/ML SYR ONE (16:41)
[2024-09-26] MEDS ORDERED: ONDANSETRON 4 MG/2 ML VIAL ONE (16:41)
[2024-09-26 16:48] LABS: Absolute Eosinophils 0.1 K/uL (0-0.5); Absolute Lymphocytes (CBC) 0.8 K/uL (0.7-4.9); Absolute Monocytes 0.5 K/uL (0.1-1.3); Absolute Neutrophil 6.8 K/uL (1.8-8.0); Basophils % 0.4 % (0-1.3); Eosinophils % 0.9 % (0-4.4); Hematocrit 30.4 % (39.6-49.0); Lymphocytes % 9.4 % (15.3-44.8); MCH 28.3 pg (27.0-35.0); MCV 85.7 fL (80-100); MPV 9.3 fL (7.6-11.3); Neutrophils % 83.3 % (41.7-73.7); Platelets 209 thou/uL (152-406); RBC Red Blood Cell Count 3.55 M/uL (4.33-5.43); Red Cell Distribution Width 16.9 % (12.1-15.2)
[2024-09-26 16:59] LABS: PT Prothrombin Time 11.2 SECONDS (9.4-12.5); PTT, Activated Partial Thromb 28.5 SECONDS (24.3-36.9); Protime INR 1.07
[2024-09-26 17:06] LABS: Albumin 2.2 g/dL (3.4-5.0); Albumin/Globulin Ratio 0.5 (1.1-1.8); Anion Gap 7.2 mEq/L (5.0-15.0); Bilirubin Total 0.2 mg/dL (0.2-1.0); Globulin 4.8 g/dL (2.3-3.5); Potassium 4.2 mEq/L (3.5-5.1)
--- NOTE | 2024-09-26 17:21 | RAD REPORT ---
EXAMINATION:Lower Extremity Artery [facility] CLINICAL INDICATION: Male, 49 years old. [facility] MAIN left leg Swelling;Pain Bed Name: 15 TECHNIQUE: Arterial duplex ultrasound was performed of the Left lower extremity with real-time, color -flow, and spectral wave Doppler evaluation. COMPARISON: No prior exam. FINDINGS: No plaque throughout the evaluated arterial system. Triphasic waveforms are seen throughout the eval uated Right lower extremity arterial system, to the level of the dorsalis pedis artery. No other suspicious findings. IMPRESSION: No evidence of significant peripheral vascular disease.
--- NOTE | 2024-09-26 17:28 | RAD REPORT ---
EXAMINATION: US LEFT LOWER EXTREMITY VENOUS DOPPLER CLINICAL INDICATION: left leg SWELLING TECHNIQUE: Complete bilateral duplex sonography of the LEFT lower extremity veins was performed. The examination included compression for vein patency, color Doppler imaging and flow augmentation in response to distal compression of the distal external iliac, common femoral, femoral, popliteal, tibi al, and great and small saphenous veins. COMPARISON: No prior exam. FINDINGS: Duplex sonography testing of the veins of the LEFT lower extremity was performed. Color flow imaging shows all veins to be compressible with [id number] color filling. Pulsatile and phasic flow is present within all lower extremity deep and superficial veins examined. IMPRESSION: No evidence of deep venous thrombosis.
[2024-09-26] MEDS ORDERED: VANCOMYCIN 1 GM/VIAL ONE ×2 (18:01→21:04)
[2024-09-26] MEDS ORDERED: NA CHLORIDE 0.9% 250 ML ONE ×2 (18:02→21:05)
[2024-09-26] MEDS ORDERED: NA CHLORIDE 0.9% 1,000 ML ONE ×2 (18:02→21:10)
--- NOTE | 2024-09-26 18:16 | EDPHYS ---
Physician Documentation [facility] Name: Liu Boo Jr Age: 49 yrs Sex: Male : 1975 Arrival Date: 09/26/2024 Time: 15:20 Bed 15 Private MD: ED Physician Kenrick Hicks HPI: 09/26 16:10 This 49 yrs old Male presents to ER via Ambulatory with complaints of Wound cp Check - left. 16:10 The patient presents with pain, that is acute, swelling, tenderness. The complaints cp affect the left foot and left lower leg. Associated signs and symptoms: Pertinent positives: plantar side open wound to left foot times 1 month. 16:10 Treatment prior to arrival includes: no previous treatment. cp Historical: - Allergies: 15:57 No Known Allergies; ap3 - PMHx: 15:57 Diabetes - NIDDM; ap3 - PSHx: 15:57 Cholecystectomy; gastric sleeve; ap3 - Immunization history:: Client reports receiving the 2nd dose of the Covid vaccine, Flu vaccine is not up to date. - Infectious Disease History:: Denies. - Social history:: Smoking status: Patient denies any tobacco usage or history of. ROS: 16:15 Constitutional: Negative for body aches, chills, fever, poor PO intake, cp 16:15 Cardiovascular: Negative for chest pain, cp 16:15 Respiratory: Negative for cough, shortness of breath, wheezing, 16:15 Abdomen/GI: Negative for abdominal pain, nausea, vomiting, and diarrhea, 16:15 MS/extremity: Positive for pain, swelling, tenderness, of the left foot and left lower leg, 16:15 Neuro: Negative for altered mental status, dizziness, headache, weakness, 16:15 All other systems are negative, Exam: 16:20 Constitutional: The patient appears in no acute distress, alert, awake, cp non-diaphoretic, non-toxic, well developed, well nourished, obese, 16:20 Head/Face: Normocephalic, atraumatic. cp 16:20 Eyes: Periorbital structures: appear normal, Conjunctiva: normal, no exudate, no injection, Sclera: no appreciated abnormality, Lids and lashes: appear normal, bilaterally, 16:20 ENT: External ear(s): are unremarkable, Nose: is normal, Mouth: Lips: moist, Oral mucosa: moist, Posterior pharynx: Airway: no evidence of obstruction, patent, 16:20 Neck: ROM/movement: is normal, is supple, without pain, no range of motions limitations, 16:20 Chest/axilla: Inspection: normal, 16:20 Cardiovascular: Rate: normal, Rhythm: regular, 16:20 Respiratory: the patient does not display signs of respiratory distress, Respirations: normal, no use of accessory muscles, no retractions, labored breathing, is not present, Breath sounds: are clear throughout, no decreased breath sounds, no stridor, no wheezing, 16:20 Abdomen/GI: Inspection: obese Palpation: abdomen is soft and non-tender, in all quadrants, 16:20 Musculoskeletal/extremity: Extremities: noted in the left foot: left fifth toe amputated, open wound noted plantar side 4th metatarsal with scant drainage, erythema and swelling of foot, 16:20 Neuro: Orientation: to person, place \T\ time. Mentation: is normal, Motor: moves all fours, strength is normal, 16:40 ECG was reviewed by the Attending Physician. Vital Signs: 15:55 BP 182 / 85; Pulse 98; Resp 18; Temp 98.3(TE); Pulse Ox 100% on R/A; Weight 123.38 kg; ap3 Height 5 ft. 10 in. ; Pain 7/10; 17:17 BP 149 / 76; Pulse 107; Resp 18 S; Pulse Ox 100% on R/A; kc6 18:21 BP 160 / 79; Pulse 99; Resp 19 S; Pulse Ox 100% on R/A; kc6 15:55 Body Mass Index 39.03 (123.38 kg, 177.8 cm) ap3 15:55 Pain Scale: Adult ap3 MDM: 18:16 Medical Screening Exam initiated cp 18:20 Data reviewed: vital signs, nurses notes, lab test result(s), EKG, radiologic studies, cp plain films, and as a result, I will admit patient. Management of patient was discussed with the following: Hospitalist: DR Lopez will admit after discussion. I considered the following discharge prescriptions or medication management in the emergency department Medications were administered in the Emergency Department. See MAR. Independent interpretation of the following test(s) in the Emergency Department EKG: See my EKG interpretation above. 09/26 16:09 Order name: Blood Culture Adult (2) cp 09/26 16:09 Order name: CBC with Diff; Complete Time: 17:02 cp 09/26 17:02 Interpretation: Normal except: RBC 3.55; HGB 10.0; HCT 30.4; RDW 16.9; HEIKE% 83.3; LYM% cp 9.4. 09/26 16:09 Order name: CMP; Complete Time: 17:10 cp 09/26 17:10 Interpretation: Normal except: CL 111; GLUC 111; BUN 28; CRE 2.65; GFR 29; CA 8.1; ALB cp 2.2; GLOB 4.8; A/G 0.5. 09/26 16:09 Order name: Lactate w/ 2H reflex if indic.; Complete Time: 17:10 cp 09/26 16:09 Order name: Protime (+inr); Complete Time: 17:02 cp 09/26 16:09 Order name: Ptt, Activated; Complete Time: 17:02 cp 09/26 16:09 Order name: Urinalysis w/ reflexes cp / 16:09 Order name: Wound Culture cp 09/26 16:09 Order name: CRP; Complete Time: 17:10 cp 09/26 17:11 Interpretation: Abnormal: C-REACTIVE PROT 70.00. cp 09/26 18:24 Order name: Basic Metabolic Panel EDMS 09/26 18:24 Order name: Basic Metabolic Panel EDMS 09/26 18:24 Order name: CBC with Automated Diff EDMS 09/26 18:24 Order name: CBC with Automated Diff EDMS 09/26 18:24 Order name: Lipid Profile EDMS 09/26 18:24 Order name: Lipid Profile EDMS 09/26 21:31 Order name: Glucose, Ancillary Testing EDMS 09/27 08:45 Order name: Urine Culture EDMS 09/27 12:06 Order name: Glucose, Ancillary Testing EDMS 09/26 16:09 Order name: XRAY Foot LEFT 3 View cp 09/26 16:09 Order name: US Extremity Venous Unilateral Ltd; Complete Time: 17:43 cp 09/26 16:09 Order name: US LE Artery Uni Ltd; Complete Time: 17:43 cp 09/26 16:09 Order name: Accucheck; Complete Time: 16:27 cp 09/26 16:09 Order name: Cardiac monitoring; Complete Time: 16:54 cp 09/26 16:09 Order name: EKG - Nurse/Tech; Complete Time: 16:54 cp 09/26 16:09 Order name: IV Saline Lock - Large Bore; Complete Time: 16:27 cp 09/26 16:09 Order name: Labs collected and sent; Complete Time: 16:27 cp 09/26 16:09 Order name: O2 Per Protocol; Complete Time: 16:10 cp 09/26 16:09 Order name: O2 Sat Monitoring; Complete Time: 16:10 cp 09/26 16:09 Order name: Vital Signs; Complete Time: 16:10 cp EC:40 Rate is 101 beats/min. Rhythm is regular. CA interval is normal. QRS interval is cp normal. QT interval is normal. T waves are Inverted in lead aVR. Interpreted by me. Reviewed by me. Administered Medications: 17:03 Drug: morphine IVP or IV 4 mg IVP once over 4 mins Route: IVP; Infused Over: 4 mins; kc6 Site: right antecubital; 18:20 Follow up: Response: No adverse reaction; Pain is decreased [facility] 17:03 Drug: Ondansetron IVP 4 mg IVP once; over 2 minutes Route: IVP; Site: right antecubital;kc6 18:20 Follow up: Response: No adverse reaction [facility] 18:14 Drug: NS 0.9% IV 1000 ml IV at 1000 ml once; to be given as a bolus over 60 minutes kc6 Route: IV; Rate: 1000 ml; Site: right antecubital; 18:55 Follow up: Response: No adverse reaction; IV Status: Completed infusion; IV Intake: kc6 1000ml 18:14 Drug: vancoMYCIN IVPB 1 grams IVPB once over 2 hrs Route: IVPB; Infused Over: 2 hrs; kc6 Site: right antecubital; 18:55 Follow up: Response: No adverse reaction; IV Status: Completed infusion; IV Intake: kc6 250ml Disposition: 09/27 18:47 Co-signature as Attending Physician, Kenrick Hicks MD I reviewed the patient's care rn provided by the Advanced Practice Provider and agree with the diagnosis and treatment plan. 09/28 14:03 Chart complete. cp Disposition Summary: 09/26/24 18:16 Hospitalization Ordered Notes: Hospitalization Status: Inpatient Admission cp Provider: Prince Suraj cp Condition: Stable cp Problem: new cp Symptoms: have improved cp Bed/Room Type: Standard cp Location: Telemetry/MedSurg (Inpatient)(09/27/24 13:01) Room Assignment: 406(09/27/24 13:01) ja Diagnosis - Cellulitis of left lower limb cp - Foot Laceration/ Open wound of foot - left cp Forms: - Medication Reconciliation Form cp - SBAR form cp - Leadership Thank You Letter cp Signatures: Dispatcher [employer] EDMS Kenrick Hicks MD MD rn Page, Corey, PA PA cp Edmund Bird RN RN ja1 Chayo Aponte RN RN ap3 Lesli Lyons RN RN kc6 Corrections: (The following items were deleted from the chart) 09/26 16:09 16:09 BLOOD CULTURE*+BA.LAB.BRZ ordered. EDMS EDMS 16:09 16:09 CBC+H.LAB.BRZ ordered. EDMS EDMS 16:09 16:09 COMPREHENSIVE METABOLIC PANEL+C.LAB.BRZ ordered. EDMS EDMS 16:09 16:09 LACTATE+C.LAB.BRZ ordered. EDMS EDMS 16:09 16:09 PROTIME (+INR)+COAG.LAB.BRZ ordered. EDMS EDMS 16:09 16:09 PTT, ACTIVATED+COAG.LAB.BRZ ordered. EDMS EDMS 16:09 16:09 Urinalysis+U.LAB.BRZ ordered. EDMS EDMS 16:09 16:09 Wound Culture+BA.LAB.BRZ ordered. EDMS EDMS 16:09 16:09 C-REACTIVE PROTEIN+C.LAB.BRZ ordered. EDMS EDMS 16:10 16:10 Extremity Venous Uni Ltd+US.RAD.BRZ ordered. EDMS EDMS 16:10 16:10 Lower Extremity Artery Uni Ltd+US.RAD.BRZ ordered. EDMS EDMS 18:41 18:16 Telemetry/MedSurg (Inpatient) cp 18:41 18:16 cp 1 09/27 13:01 02 18:41 [facility] ER HOLD ja1 [facility] 09/27 13:01 02 18:41 ERHOLD- 1 [facility] 09/28 14:03 0202 18:20 Data reviewed: vital signs, nurses notes, lab test result(s), EKG, cp radiologic studies, plain films, and as a result, I will admit patient, 09/28 14:09/27 18:20 I considered the following discharge prescriptions or medication management cp in the emergency department Medications were administered in the Emergency Department. See MAR 09/28 14:09/27 18:20 Independent interpretation of the following test(s) in the Emergency cp Department EKG: See my EKG interpretation above 09/28 14:09/27 18:20 Management of patient was discussed with the following: Hospitalist: DR leo Lopez will admit after discussion. cp
--- NOTE | 2024-09-26 18:16 | ER ---
Nurse's Notes [facility] Name: Liu Boo Jr Age: 49 yrs Sex: Male : 1975 Arrival Date: 09/26/2024 Time: 15:20 Bed 15 Private MD: Diagnosis: Cellulitis of left lower limb;Foot Laceration/ Open wound of foot-left Presentation: 09/26 15:55 Chief complaint: Patient states: he is here to get the wound on his left foot checked. ap3 patient states he has had some recent long stents of driving and since then, his left foot is swelling more and moving into his left leg. patient reports these symptoms started Saturday09/20/24. Coronavirus screen: At this time, the client does not indicate any symptoms associated with coronavirus-19. Ebola Screen: No symptoms or risks identified at this time. Initial Sepsis Screen: Does the patient meet any 2 criteria? HR > 90 bpm. Does the patient have a suspected source of infection? No. Patient's initial sepsis screen is negative. Risk Assessment: Do you want to hurt yourself or someone else? Patient reports no desire to harm self or others. Onset of symptoms was September 20, 2024. 15:55 Method Of Arrival: Ambulatory ap3 15:55 Acuity: LUZ MARINA 2 ap3 Triage Assessment: 15:57 General: Appears in no apparent distress. comfortable, Behavior is calm, cooperative, ap3 appropriate for age. Pain: Complains of pain in left foot and left leg. Neuro: Level of Consciousness is awake, alert, obeys commands, Oriented to person, place, time, situation, Appropriate for age. Cardiovascular: Patient's skin is warm and dry. Respiratory: Airway is patent Respiratory effort is even, unlabored, Respiratory pattern is regular, symmetrical. Derm: Reports pain that is 7 out of 10 on a pain scale. Historical: - Allergies: 15:57 No Known Allergies; ap3 - PMHx: 15:57 Diabetes - NIDDM; ap3 - PSHx: 15:57 Cholecystectomy; gastric sleeve; ap3 - Immunization history:: Client reports receiving the 2nd dose of the Covid vaccine, Flu vaccine is not up to date. - Infectious Disease History:: Denies. - Social history:: Smoking status: Patient denies any tobacco usage or history of. Screenin:58 Abuse screen: Denies threats or abuse. Nutritional screening: No deficits noted. ap3 Tuberculosis screening: No symptoms or risk factors identified. 17:17 [facility] ED Fall Risk Assessment (Adult) History of falling in the last 3 months, kc6 including since admission No falls in past 3 months (0 pts) Confusion or Disorientation No (0 pts) Intoxicated or Sedated No (0 pts) Impaired Gait No (0 pts) Mobility Assist Device Used No (0 pt) Altered Elimination No (0 pt) Score/Fall Risk Level 0 - 2 = Low Risk Oriented to surroundings, Maintained a safe environment, Educated pt \T\ family on fall prevention, incl call for assistance when getting out of bed. Assessment: 16:28 General: Appears in no apparent distress. comfortable, obese, well groomed, well kc6 developed, Behavior is calm, cooperative, appropriate for age. Pain: Complains of pain in ball of left foot. Neuro: Level of Consciousness is awake, alert, obeys commands, Oriented to person, place, time, situation, Appropriate for age. Cardiovascular: Capillary refill < 3 seconds. Respiratory: Airway is patent Trachea midline Respiratory effort is even, unlabored, Respiratory pattern is regular, symmetrical. GI: No signs and/or symptoms were reported involving the gastrointestinal system. : No signs and/or symptoms were reported regarding the genitourinary system. EENT: No signs and/or symptoms were reported regarding the EENT system. Derm: Wound noted ball of left foot Wound is open, about the size of quarter. wound appears to have serosanguineous drainage with foul odor. Musculoskeletal: Circulation, motion, and sensation intact. Range of motion: intact in all extremities. 17:28 Reassessment: Patient appears in no apparent distress at this time. No changes from kc6 previously documented assessment. Patient and/or family updated on plan of care and expected duration. Pain level reassessed. Patient is alert, oriented x 3, equal unlabored respirations, skin warm/dry/pink. 18:24 Reassessment: Patient appears in no apparent distress at this time. No changes from kc6 previously documented assessment. Patient and/or family updated on plan of care and expected duration. Pain level reassessed. Patient is alert, oriented x 3, equal unlabored respirations, skin warm/dry/pink. Vital Signs: 15:55 BP 182 / 85; Pulse 98; Resp 18; Temp 98.3(TE); Pulse Ox 100% on R/A; Weight 123.38 kg; ap3 Height 5 ft. 10 in. ; Pain 7/10; 17:17 BP 149 / 76; Pulse 107; Resp 18 S; Pulse Ox 100% on R/A; kc6 18:21 BP 160 / 79; Pulse 99; Resp 19 S; Pulse Ox 100% on R/A; kc6 15:55 Body Mass Index 39.03 (123.38 kg, 177.8 cm) ap3 15:55 Pain Scale: Adult ap3 ED Course: 15:23 Patient arrived in ED. ra3 15:28 Emanuel Morrell PA is PHCP. cp 15:28 Kenrick Hicks MD is Attending Physician. cp 15:57 Triage completed. ap3 15:58 Arm band placed on right wrist. ap3 16:05 Lesli Lyons, RICK is Primary Nurse. kc6 16:28 Inserted saline lock: 20 gauge in right antecubital area, using aseptic technique. kc6 Blood collected. Flushed with 10 mL NS. 17:02 XRAY Foot LEFT 3 View In Process Unspecified. EDMS 17:06 US LE Artery Uni Ltd In Process Unspecified. EDMS 17:07 US Extremity Venous Unilateral Ltd In Process Unspecified. EDMS 17:17 Patient has correct armband on for positive identification. Bed in low position. Call kc6 light in reach. Side rails up X2. Adult w/ patient. Pulse ox on. NIBP on. Door closed. Noise minimized. Lights dimmed. Warm blanket given. Pillow given. 17:17 Patient maintains SpO2 saturation greater than 95% on room air. kc6 18:15 Prince Ruelas MD is Hospitalizing Provider. cp 18:54 No provider procedures requiring assistance completed. Patient admitted, IV remains in kc6 place. 20:47 Provided Education on: foot wound and admission. cp4 09/27 08:18 Primary Nurse role handed off by Lesli Lyons, RN eb Administered Medications: 09/26 17:03 Drug: morphine IVP or IV 4 mg IVP once over 4 mins Route: IVP; Infused Over: 4 mins; kc6 Site: right antecubital; 18:20 Follow up: Response: No adverse reaction; Pain is decreased kc6 17:03 Drug: Ondansetron IVP 4 mg IVP once; over 2 minutes Route: IVP; Site: right antecubital;kc6 18:20 Follow up: Response: No adverse reaction kc6 18:14 Drug: NS 0.9% IV 1000 ml IV at 1000 ml once; to be given as a bolus over 60 minutes kc6 Route: IV; Rate: 1000 ml; Site: right antecubital; 18:55 Follow up: Response: No adverse reaction; IV Status: Completed infusion; IV Intake: kc6 1000ml 18:14 Drug: vancoMYCIN IVPB 1 grams IVPB once over 2 hrs Route: IVPB; Infused Over: 2 hrs; kc6 Site: right antecubital; 18:55 Follow up: Response: No adverse reaction; IV Status: Completed infusion; IV Intake: kc6 250ml Medication: 18:55 VIS not applicable for this client. kc6 Intake: 18:55 IV: 1000ml; Total: 1000ml. kc6 18:55 IV: 250ml; Total: 1250ml. kc6 Outcome: 18:16 Decision to Hospitalize by Provider. cp 18:55 Admitted to ER Hold. Please see [facility] for further documentation. kc6 18:55 Condition: good 18:55 Instructed on the need for admit, 09/27 14:11 Patient left the ED. hb Signatures: Dispatcher [employer] EDMS Emanuel Morrell PA PA cp Baxter, Heather RN RN Chayo Aponte RN RN bella3 Danica Parker Kaitlyn, RN RN kc6 Bri Ayala cp4 Kelsie Beal ra3 Corrections: (The following items were deleted from the chart) 09/26 17:34 17:17 BP 149 / 76; Pulse 10bpm; Resp 18bpm; Spontaneous; Pulse Ox 100% RA; kc6 kc6
[2024-09-26] MEDS ORDERED: ONDANSETRON 4 MG/2 ML VIAL IV PRN (18:19)
[2024-09-26] MEDS ORDERED: ACETAMINOPHEN 500 MG TAB PO PRN (18:19)
--- NOTE | 2024-09-26 18:28 | P.HP ---
Certification for Inpatient Patient admitted to: Inpatient With expected LOS: >2 Midnights Practitioner: I am a practitioner with admitting privileges, knowledge of patient current condition, hospital course, and medical plan of care. Services: Services provided to patient in accordance with Admission requirements found in Title 42 Section 412.3 of the Code of Federal Regulations Patient History Date of Service: 09/26/24 Reason for admission: Diabetic foot infection History of Present Illness: Patient is a 49-year-old male with uncontrolled diabetes mellitus complicated by diabetic foot infection status post surgery in the past. He is presenting with a left open wound on his right foot present for the past month. Patient is known to general surgery and has undergone left fifth toe amputation last year. He is being now admitted for cellulitis with possible osteomyelitis. Foot x-ray was negative. MRI cannot be performed until Saturday. General surgery has been contacted and will be happy to consult. Allergies No Known Allergies Allergy (Verified 01/14/24 13:57) Home Medications: Amlodipine [Norvasc*] 10 mg PO DAILY #30 tab 01/08/24 Collagenase [Santyl Ointment*] 1 appl TOP DAILY #1 tube 01/08/24 Docusate [Colace Cap*] 100 mg PO BID #60 cap 01/08/24 Hydrocodone 7.5/APAP 325 [Etlan 7.5/325 mg] 1 tab PO Q6H PRN #20 tab 01/08/24 Zinc Sulfate [Zinc Sulfate*] 220 mg PO DAILY #30 cap 01/08/24 carvediloL [Coreg*] 6.25 mg PO BID #60 tab 01/08/24 - Past Medical/Surgical History Diabetic: Yes -: DM II with polyneuropathy -: HTN -: Meningitis -: Diabetic neuropathy -: gastric sleeve -: right foot-debridement -: Cholecystectomy -: left 5th toe amputation Psychosocial/ Personal History: 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 [employer] lives at home with family - Family History Father -: Heart disease, Diabetes Brother -: Cancer, Other (see notes) Notes: Stomach cancer - Social History Alcohol use: No CD- Drugs: No Caffeine use: Yes Physical Examination - Physical Exam General: Alert, Other HEENT: Atraumatic, Normocephalic Respiratory: Clear to auscultation bilaterally, Normal air movement Cardiovascular: Regular rate/rhythm, Normal S1 S2, Edema Musculoskeletal: Other (Edematous left foot, with open sore on the plantar surface, draining) - Studies Laboratory Data (last 24 hrs) 09/26/24 09/26/24 09/26/24 16:35 16:35 16:35 WBC 8.10 Hgb 10.0 L Hct 30.4 L Plt Count 209 PT 11.2 INR 1.07 APTT 28.5 Sodium 136 Potassium 4.2 BUN 28 H Creatinine 2.65 H Glucose 111 H Total Bilirubin 0.2 AST 19 ALT 18 Alkaline Phosphatase 80 Assessment and Plan - Problems (Diagnosis) (1) Chronic kidney disease, stage 3 Current Visit: No Status: Acute (2) Neuropathy Current Visit: No Status: Acute (3) Non-healing surgical wound Current Visit: No Status: Acute (4) Open wound of left foot Current Visit: No Status: Acute (5) Overweight (BMI 25.0-29.9) Current Visit: No Status: Acute (6) Diabetes Onset Date: 05/01/17 Current Visit: No Status: Chronic Qualifiers: (7) Diabetic ulcer of left foot Current Visit: No Status: Chronic Qualifiers: (8) Hyperlipidemia Current Visit: No Status: Chronic Qualifiers: (9) Hypertension Current Visit: No Status: Chronic - Plan Assessment This is a 49-year-old male with uncontrolled diabetes mellitus complicated by diabetic foot infection status post left toe amputation in the past. He is presenting with a poorly healing surgical wound. He is being admitted for cellulitis with possible osteomyelitis. Diabetic foot infectionwound cellulitis versus osteomyelitis Uncontrolled type 2 diabetes mellitus Acute on chronic CKD stage III Diabetic neuropathy Diabetic nephropathy Hypertension Plan: Will admit inpatient Start patient on vancomycin and levofloxacin IV fluid infusion MMP regimen Consult general surgery MRI foot on Saturday Resume rest of home medications upon reconciliation Patient is full code - Advance Directives Does patient have a Living Will: No Does patient have a Durable POA for Healthcare: No
[2024-09-26 18:29] LABS: Specific Gravity 1.017 (1.005-1.030); Sqamous Epithelial <5 /HPF (None Seen); Urine Bacteria <20 /HPF (<20); Urine Bilirubin NEGATIVE (Negative); Urine Blood 3+ (OVER) (Negative); Urine Clarity Extremely Turbid (Clear); Urine Color Light-Orange (Yellow); Urine Crystals Unidentified Few /HPF (None Seen); Urine Culture Reflex Order REFLEXED; Urine Glucose TRACE (Negative); Urine Ketones NEGATIVE (Negative); Urine Microscopic Reflex YN ORDER UMIC; Urine Mucus Slight /HPF (None Seen); Urine Nitrite 1+ (Negative); Urine Protein 4+ (Over) (Negative); Urine RBC >50 /HPF (None Seen); Urine Urobilinogen Normal (Normal); Urine WBC >50 /HPF (<5); Urine WBC Clump Occasional /HPF (None Seen); Urine Yeast (Budding) Few /HPF (None Seen)
--- NOTE | 2024-09-26 18:49 | RAD REPORT ---
EXAMINATION: XR Foot Left 3 View CLINICAL INDICATION: Male, 49 years old. [facility] MAIN open wound Bed Name: 15 TECHNIQUE: 3 view radiographs of the left foot were obtained. COMPARISON: 12/30/2023 FINDINGS: Sequelae of amputation at the level of the proximal fifth metatarsal shaft. Progressive oss eous destructive changes at the level of the fourth metatarsal head and proximal phalanx base. Progressive osseous remodeling and organized periosteal reaction along the fourth metatarsal shaft, w ith mildly progressive periosteal reaction and osseous remodeling along the distal shafts of the second and third metatarsals. Deformities of the second and third distal phalanges as well as the fir st metatarsal are stable. Diffuse soft tissue swelling, however with new areas of soft tissue gas involving the region of the fourth metatarsal head. Vascular calcifications. Moderate degenerative ch anges of the midfoot. IMPRESSION: Progressive osseous destructive changes at the level of the fourth metatarsal head and proximal phala nx base, concerning for acute osteomyelitis. Other findings as above.
[2024-09-26] MEDS: NA CHLORIDE 0.9% 1,000 ML IV SCH (19:00)
[2024-09-26] MEDS ORDERED: VANCOMYCIN 1.25 GM in NA CHLORIDE 0.9% 250 ML IVPB SCH (19:09)
[2024-09-26] MEDS: Meropenem 500 MG in NA CHLORIDE 0.9% 100 ML IV ONE (19:30)
[2024-09-26] MEDS ORDERED: Meropenem 500 MG VIAL IV ONE (19:38)
[2024-09-26] MEDS ORDERED: NA CHLORIDE 0.9% 100 ML ONE (19:38)
[2024-09-26] MEDS ORDERED: Levofloxacin 750mg IV 750 MG/150 ML BAG IV SCH (20:00)
[2024-09-26 20:08] VITALS: BMI 39.0
[2024-09-26] MEDS: VANCOMYCIN 1 GM in NA CHLORIDE 0.9% 250 ML IVPB ONE (21:00)
[2024-09-26] MEDS ORDERED: HYDROMORPHONE HCL 1 MG/ML INJ ONE (23:47)
[2024-09-26] MEDS: HYDROMORPHONE HCL 1 MG/ML INJ IV PRN (23:50)
[2024-09-27] MEDS ORDERED: HYDROMORPHONE HCL 1 MG/ML INJ ONE ×2 (04:49→09:59)
[2024-09-27 05:28] LABS: Anion Gap 6.5 mEq/L (5.0-15.0); Potassium 4.5 mEq/L (3.5-5.1)
[2024-09-27 06:15] LABS: Absolute Lymphocytes (CBC) 0.9 K/uL (0.7-4.9); Absolute Monocytes 0.4 K/uL (0.1-1.3); Basophils % 0.8 % (0-1.3); Eosinophils % 0.7 % (0-4.4); Hematocrit 25.7 % (39.6-49.0); Hemoglobin 8.5 g/dL (13.6-17.9); Lymphocytes % 21.3 % (15.3-44.8); MCH 28.5 pg (27.0-35.0); MCHC 33.1 g/dL (32.0-36.0); MCV 86.3 fL (80-100); MPV 8.9 fL (7.6-11.3); Monocytes % 9.2 % (3.3-12.3); Nucleated Red Blood Cells % 0.1 % (0-0); Platelets 169 thou/uL (152-406); RBC Red Blood Cell Count 2.97 M/uL (4.33-5.43); Red Cell Distribution Width 17.4 % (12.1-15.2)
[2024-09-27] MEDS ORDERED: NA CHLORIDE 0.9% 100 ML ONE (08:54)
[2024-09-27] MEDS ORDERED: Meropenem 500 MG VIAL IV ONE (08:54)
[2024-09-27] MEDS: Meropenem 500 MG in NA CHLORIDE 0.9% 100 ML IV SCH (09:00)
[2024-09-27] MEDS: FLU (Fluarix Triv) TS24-25(6MOS UP)/PF 45 MCG/0.5 ML Syringe IM ONE (10:15)
--- NOTE | 2024-09-27 11:03 | P.PN ---
Subjective Date of Service: 09/27/24 Chief Complaint: Diabetic foot infection Subjective: Improving (Patient is improving his left foot is very swollen has wound the plantar aspect of the left foot no history of any injury and this started becoming red and swollen for the past 2 days) Review of Systems 10-point ROS is otherwise unremarkable Physical Examination - Vital Signs Temperature: 98.3 F Blood Pressure: 139/77 Pulse: 83 Respirations: 18 Pulse Ox (%): 95 - Physical Exam General: Alert, Oriented x3 Neck: Supple Respiratory: Clear to auscultation bilaterally Musculoskeletal: Other (Foot is very swollen peers to have a puncture wound on the aspect of the left foot and is draining purulent material) - Studies Laboratory Data (last 24 hrs) 09/26/24 09/26/24 09/26/24 16:35 16:35 16:35 WBC 8.10 Hgb 10.0 L Hct 30.4 L Plt Count 209 PT 11.2 INR 1.07 APTT 28.5 Sodium 136 Potassium 4.2 BUN 28 H Creatinine 2.65 H Glucose 111 H Total Bilirubin 0.2 AST 19 ALT 18 Alkaline Phosphatase 80 Assessment And Plan - Current Problems (Diagnosis) (1) Diabetic ulcer of left foot Current Visit: No Status: Chronic Plan: Patient has a diabetic ulcer swelling pain of the left foot of diabetes no treatment chronic renal failure with fluids IV antibiotics consult general surgery MRI pending labs reviewed most likely has acute osteomyelitis Progressive osseous destructive changes at the level of the fourth metatarsal head and proximal phalanx base, concerning for acute osteomyelitis. Other findings as above. Patient has neuropathy resume gabapentin labs x-rays all reviewed Qualifiers: Diabetic foot ulcer location: other Diabetes mellitus type: type 2 Non- pressure ulcer stage: unspecified non-pressure ulcer stage Qualified Code(s): E11.621 - Type 2 diabetes mellitus with foot ulcer; L97.529 - Non-pressure chronic ulcer of other part of left foot with unspecified severity
[2024-09-27] MEDS: VANCOMYCIN 1 GM in NA CHLORIDE 0.9% 250 ML IV ONE (14:48)
[2024-09-27] MEDS: GABAPENTIN 300 MG CAP PO SCH (14:48)
--- NOTE | 2024-09-27 19:51 | CON ---
Date of Consultation: 09/26/2024 Reason For Consultation: Infected wound with cellulitis, possible osteomyelitis, left foot. History Of Present Illness: The patient is a 49-year-old gentleman who states that for the last colby h, he has had a wound on his left foot that he has been taking care of at home. He was in the [facility] over the last week. The wound opened up. He has had yellowish drainage and some foul smell to it. Denies any fever or chills. He came to the hospital as his symptoms were getting worse. He den ies any sore throat, runny nose, cough, headaches, or dizziness. No chest pain. No fever or chills. Does have some swelling and increased pain in the left foot. Review of Systems: Otherwise unremarkable. Medical History: Significant for type 2 diabetes, hypertension, history of meningitis, diabetic neur opathy. Past Surgical History: Gastric sleeve, cholecystectomy. He had a left fifth toe amputation by me in December of last year and wound healed up well. Allergies: NO ALLERGIES. Social History: The patient does not smoke or drink alcohol. Family History: Significant for a brother with stomach cancer. Father with heart disease and diabet es. Physical Examination: Vital Signs: Stable. He is afebrile. He is awake, alert, oriented x3. Head and Neck: No masses. Chest: Clear. Heart: S1, S2. Abdomen: Soft, nondistended. Positive bowel sounds. Nontender. Extremities: Diminished dorsalis pedis and posterior tibial pulses. However, he does have edema in both feet, left side greater than right. On the left foot, he has an ulcer approximately 2 cm with s ome foul smelling drainage and necrotic fibrin present in the center of it. There is surrounding mia thema, warmth, and edema. Laboratory Data: His white count is 4.4, H and H is 8.5 and 25.7. He did have a left shift on admis adrienne. It is improved since antibiotics were started. INR is 1.07. His glucose was 111, currently i s 84. His lactic acid was 0.9. C-reactive protein was 70 however, albumin is 2.2. The patient had a foot x-ray, which shows progressive osseous destructive changes at the level of the fourth metatars al head and proximal phalanx base concerning for acute osteomyelitis. His arterial Dopplers are nega tive for any acute disease. He had triphasic flow and venous Doppler did not show any DVT. Assessment: A 49-year-old gentleman with a left foot diabetic infected ulcer, probably a grade 3. Recommendations: Continue IV fluids, IV antibiotics. We will make the patient n.p.o. after midnight with the patient get an MRI. We will decide what the appropriate intervention, at least surgical de bridement of that ulcer all the way down to get all the infected tissue and pus out of the wound. Th e patient understands risks, benefits, alternatives, and agrees to procedure. /MODL Voice ID: [id number] Report ID: [id number]
[2024-09-27] MEDS: PANTOPRAZOLE 40MG TABLET PO SCH (21:41)
[2024-09-28 06:19] LABS: Hematocrit 25.2 % (39.6-49.0); Hemoglobin 8.3 g/dL (13.6-17.9); MCH 28.6 pg (27.0-35.0); MCHC 33.1 g/dL (32.0-36.0); MCV 86.3 fL (80-100); Platelets 148 thou/uL (152-406); RBC Red Blood Cell Count 2.91 M/uL (4.33-5.43); Red Cell Distribution Width 17.3 % (12.1-15.2)
[2024-09-28 07:24] LABS: Anion Gap 7.6 mEq/L (5.0-15.0); Potassium 4.6 mEq/L (3.5-5.1)
[2024-09-28] MEDS: VANCOMYCIN 2 GM in NA CHLORIDE 0.9% 500 ML IVPB SCH (08:44)
[2024-09-28] MEDS ORDERED: VANCOMYCIN 2 GM in NA CHLORIDE 0.9% 500 ML IVPB SCH (09:00)
[2024-09-28] MEDS: LORazepam 2 MG/ML VIAL IV ONE (09:10)
[2024-09-28] MEDS ORDERED: MEDIHONEY 44 ML TOPICAL TUBE TOP ONE (09:46)
[2024-09-28] MEDS ORDERED: COLLAGENASE 30 GM OINTMENT TOP ONE (09:46)
[2024-09-28] MEDS ORDERED: propofoL 200 MG/20 ML VIAL IV ONE (10:07)
[2024-09-28] MEDS ORDERED: ONDANSETRON 4 MG/2 ML VIAL ONE (10:07)
[2024-09-28] MEDS ORDERED: LIDOCAINE 2% MPF 5 ML VIAL ONE (10:07)
[2024-09-28] MEDS ORDERED: FENTANYL CITR 100 MCG/2 ML ONE ×2 (10:08→11:10)
[2024-09-28] MEDS ORDERED: MIDAZOLAM HCL 2 MG/2 ML INJ ONE (10:08)
[2024-09-28] MEDS ORDERED: Ringers Lactate 0 ML IV ONE (10:25)
--- NOTE | 2024-09-28 11:47 | P.PN ---
Date of Service: 09/28/24 Subjective: I&D this morning pain tolerable ROS: 10 point ROS as noted above, otherwise negative Physical Exam: GEN: Alert, oriented, NAD CV: Regular rate and rhythm, no edema Pulm: Nonlabored respirations on room air, clear bilaterally ABD: soft, nontender, nondistended Integumentary: surgical dressing in place Neuro: Normal speech, normal affect Problem List: Left foot osteomyelitis with infected left foot abscess s/p I&D (2) NIDDM2 with hx of uncontrolled hyperglycemia YANETH on CKD3 Hypertension hx of gastric sleeve Hx of meningitis hx of Left 5th toe amputation (12/2023) Left foot osteomyelitis with infected left foot abscess s/p I&D (3) NIDDM2 with hx of uncontrolled hyperglycemia on admission, presents with worsening open left foot wound. Patient follows Dr. Coombs. Previously underwent L 5th toe amputation last year. Venous ultrasound negative. Arterial doppler negative. xray foot (09/26): Progressive osseous destructive changes at the level of the fourth metatarsal head and proximal phalanx base, concerning for acute osteomyelitis MRI left foot ordered to r/o ostemyelitis Dr. Coombs general surgeon consulted to eval s/p I&D of left foot abscess, left foot debridement down to bone continue empiric merrem / vanc (2/-) follow blood and wound cultures Urine culture: E. Coli pain control YANETH on CKD3 continue to monitor renal function continue IV fluids Monitor and replete electrolytes as needed Hypertension confirm home meds, restart as appropriate VTE: SCD Code: Full Dispo: Home Pending surgery, surgical recs, cultures Time Spent Managing Pts Care (In Minutes): 55
--- NOTE | 2024-09-28 11:52 | P.OP ---
Date of Service: 09/28/24 Preop diagnosis: Infected left foot wound with abscess and osteomyelitis Postop diagnosis: Same Procedure performed: Incision, drainage and debridement of left foot abscess. Excisional debridement of a infected wound with debridement down to subcutaneous tissue and bone 4 x 4 cm Surgeon: Fermin Coombs MD Pneumatic Hoist Operator: Jeni MORENO Estimated blood loss: Minimal Specimen: Pus for culture and sensitivity, bone for culture and sensitivity Findings: As above Anesthesia: General Complications: None Drains: None Fluids and blood products: Nonapplicable Disposition: Recovery room Operative note: Patient brought to the OR and placed in supine position. General anesthesia began. Patient prepped and draped in usual sterile fashion. Marcaine 0.5% very locally. Then sharp dissection proceeded around the nonhealing infected ulcer on the plantar aspect of the foot. Bleeding controlled with cautery. All necrotic tissue excised sent to pathology as specimen. Patient had an abscess on the lateral aspect of the foot. This abscess was entered through the open wound. Large amount of pus was evacuated. Cultures were done. Necrotic tissue were debrided. Patient had infected left fourth metatarsal bone and proximal phalanx. All the infected bone was debrided with rongeur. The debridement was done until normal bone was felt. Rasp was used to smooth the rough edges. Wound irrigated and bleeding controlled cautery. There was no necrotic tissue or pus present at the end of the case. Wound was irrigated and bleeding controlled cautery. Santyl wet-to-dry normal saline dressing change was applied. Patient tolerated the procedure in stable condition and taken to recovery room in good general condition. CC:
--- NOTE | 2024-09-28 13:01 | RAD REPORT ---
EXAM: Foot Left Wo Cont HISTORY: Foot pain. Swelling. Osteomyelitis COMPARISON: December 2023 MRI TECHNIQUE: Axial, sagittal and coronal magnetic resonance imaging of the left foot obtained FINDINGS: Resection portion of the fifth metatarsal. Abnormal signal involves almost all of the fourth metatarsal and fourth proximal phalanx. Abnormal si gnal involves fourth middle phalanx. Abnormal signal involves second proximal phalanx. Periosteal deposition second and third metatarsals. 2 cm abscess lateral forefoot. IMPRESSION: Osteomyelitis fourth metatarsal, fourth proximal and middle phalanges Abnormal signal second proximal phalanx presumably osteomyelitis 2 cm abscess soft tissue lateral forefoot
--- NOTE | 2024-09-28 13:29 | RAD REPORT ---
EXAM: Chest Single View HISTORY: PICC line insertion COMPARISON: 01/03/2024 FINDINGS: LUNGS/PLEURA: Pulmonary vascular congestion. MEDIASTINUM: The mediastinal silhouette is within normal limits. CARDIAC: Stable size and configuration. UPPER ABDOMEN: No significant abnormality. BONES: No acute abnormality. LINES/TUBES/OTHER: Right subclavian approach PICC with tip at the distal SVC. IMPRESSION: 1. PICC tip overlies the SVC is in satisfactory position. 2. Pulmonary vascular congestion.
[2024-09-28] MEDS: Mupirocin NASAL 2 APPL/1 GM TUBE NAS SCH (21:13)
[2024-09-29] MEDS: HYDROCODONE/APAP 7.5/325 MG TAB PO PRN (01:45)
[2024-09-29 06:43] LABS: Hemoglobin 7.9 g/dL (13.6-17.9); MCH 27.7 pg (27.0-35.0); MCHC 31.8 g/dL (32.0-36.0); MCV 87.2 fL (80-100); Platelets 157 thou/uL (152-406); RBC Red Blood Cell Count 2.87 M/uL (4.33-5.43); Red Cell Distribution Width 16.9 % (12.1-15.2)
[2024-09-29 06:59] LABS: Anion Gap 8.4 mEq/L (5.0-15.0); Potassium 4.4 mEq/L (3.5-5.1)
--- NOTE | 2024-09-29 12:22 | EKG ---
Test Date: 2024-09-26 Test Time: 16:34:34 Mover: GABO MEASUREMENT RESULTS: Intervals: Rate: 101 UT: 148 QRSD: 80 QT: 308 QTc: 399 [place]pine: P: 59 UT: 148 QRS: 40 T: 27 INTERPRETIVE STATEMENTS: Sinus tachycardia Possible Anterior infarct, age undetermined Abnormal ECG Compared to ECG 11/25/2022 16:18:40 Myocardial infarct finding now present Electronically Signed On 09-29-24 12:17:26 [employer]IDE [employer] PROFESSION[employer] by Rodri Calhoun
[2024-09-29] MEDS: CALCIUM GLUC 10% INJ 9.3 MEQ in NA CHLORIDE 0.9% 100 ML IV ONE (19:07)
--- NOTE | 2024-09-29 19:07 | P.PN ---
Subjective Date of Service: 09/29/24 Chief Complaint: Diabetic foot infection Patient states his pain is well-controlled. He has been afebrile. Status post debridement by Dr. Coombs. Physical Examination - Vital Signs Temperature: 97.9 F Blood Pressure: 171/92 Pulse: 73 Respirations: 16 Pulse Ox (%): 98 - Studies Microbiology Data (last 24 hrs): 09/26/24 16:35 Wound - Left Foot Gram Stain - Final Assessment And Plan - Plan Physical Exam: GEN: Alert, oriented, NAD, obese. CV: Regular rate and rhythm, no edema Pulm: Nonlabored respirations on room air, clear bilaterally ABD: soft, nontender, nondistended Integumentary: surgical dressing in place Neuro: Normal speech, normal affect Problem List: Left foot osteomyelitis with infected left foot abscess s/p I&D (/3) NIDDM2 with hx of uncontrolled hyperglycemia YANETH on CKD3 Hypertension hx of gastric sleeve Hx of meningitis hx of Left 5th toe amputation (12/2023) Plan: Left foot osteomyelitis with infected left foot abscess s/p I&D (3) NIDDM2 with hx of uncontrolled hyperglycemia Patient follows Dr. Coombs. Previously underwent L 5th toe amputation last year. Venous ultrasound negative. Arterial doppler negative. xray foot (09/26): Progressive osseous destructive changes at the level of the fourth metatarsal head and proximal phalanx base, concerning for acute osteomyelitis MRI left foot: Osteomyelitis fourth metatarsal, fourth proximal and middle phalanges, abnormal signal second proximal phalanx presumably osteomyelitis, 2 cm abscess soft tissue lateral forefoo Dr. Coombs performed I&D of left foot abscess, left foot debridement down to bone continue empiric merrem / vanc (2/2-) Patient needs 6 weeks of IV antibiotics. Infectious disease consult Follow-up deep tissue wound culture and bone tissue culture. Analgesics as needed. Acute cystitis without hematuria Urine culture: E. Coli Patient is on IV Merrem YANETH on CKD3 continue to monitor renal function continue IV fluids Monitor and replete electrolytes as needed Hypertension confirm home meds, restart as appropriate Start oral amlodipine. VTE: SCD Code: Full Dispo: Home Time Spent Managing Pts Care (In Minutes): 38
--- NOTE | 2024-09-29 20:04 | PN ---
Date of Progress Note: 09/29/2024 Subjective: The patient is awake, alert. No complaint. Objective: Vital Signs: Stable, afebrile. Skin: The wound has no purulence in it, no redness around it, and swelling has decreased. There is no active bleeding. There is some granulation tissue present. Laboratory Data: Reviewed. White count is 3.7. The Gram stain on the OR culture showed gram-positi ve cocci in clusters, gram-positive cocci in pairs and chains, and gram-negative rods. Identificatio n and sensitivity are pending. Assessment: Status post debridement of a left foot abscess and infected tissue. Recommendations: Continue IV antibiotics. Check cultures and adjust antibiotics as ordered. Wound care as ordered. The patient is in stable clinical condition, slowly improving. /MODL Voice ID: [id number] Report ID: [id number]
[2024-09-29] MEDS: AMLODIPINE 5 MG TAB PO SCH (20:28)
[2024-09-29] MEDS: Meropenem 1,000 MG in NA CHLORIDE 0.9% 100 ML IV SCH (20:29)
[2024-09-29] MEDS: VANCOMYCIN 2 GM in NA CHLORIDE 0.9% 500 ML IVPB SCH (21:25)
[2024-09-30 06:42] LABS: Hematocrit 26.6 % (39.6-49.0); Hemoglobin 8.8 g/dL (13.6-17.9); MCH 28.6 pg (27.0-35.0); MCHC 33.2 g/dL (32.0-36.0); MCV 86.2 fL (80-100); MPV 9.4 fL (7.6-11.3); Platelets 159 thou/uL (152-406); RBC Red Blood Cell Count 3.09 M/uL (4.33-5.43); Red Cell Distribution Width 17.1 % (12.1-15.2)
[2024-09-30 06:55] LABS: Anion Gap 8.5 mEq/L (5.0-15.0); Potassium 4.5 mEq/L (3.5-5.1)
[2024-09-30] MEDS: CALCIUM GLUCONATE 1 GM IVPB 1 GM/50 ML BAG IV SCH (07:42)
[2024-09-30] MEDS: FLU (Fluarix Triv) TS24-25(6MOS UP)/PF 45 MCG/0.5 ML Syringe IM ONE (12:00)
--- NOTE | 2024-09-30 15:10 | PN ---
Date of Progress Note: 09/30/2024 Subjective: Patient is awake, alert. No complaint. Vitals stable. Afebrile. Laboratory Data: Shows a white count of 4.6. Chemistry reviewed. Cultures are pending and dressing is clean, dry, intact. Assessment: Status post incision and drainage and debridement of left foot abscess. Excision debrid ed infected wound with debridement down to subcutaneous tissue and bone. Recommendations: Continue IV antibiotics and wound care is ordered. Check cultures and adjust antib iotics accordingly. The patient will need 6 weeks of IV antibiotics. PICC line is already in place. Discharge planning. /MODL Voice ID: [id number] Report ID: [id number]
[2024-09-30] MEDS ORDERED: HYDRALAZINE HCL 20 MG/ML VIAL IV PRN (18:34)
--- NOTE | 2024-09-30 18:35 | P.PN ---
Subjective Date of Service: 09/30/24 Chief Complaint: Diabetic foot infection Patient states his pain is well-controlled. No recorded fever. Patient is tolerating diet. Physical Examination - Vital Signs Temperature: 97.9 F Blood Pressure: 172/89 Pulse: 99 Respirations: 19 Pulse Ox (%): 100 - Studies Microbiology Data (last 24 hrs): 09/26/24 16:35 Wound - Left Foot Gram Stain - Final Assessment And Plan - Plan Physical Exam: GEN: Alert, oriented, NAD, obese. CV: Regular rate and rhythm, no edema Pulm: Nonlabored respirations on room air, clear bilaterally ABD: soft, nontender, nondistended Integumentary: surgical dressing in place Neuro: Normal speech, normal affect Problem List: Left foot osteomyelitis with infected left foot abscess s/p I&D (2/3) NIDDM2 with hx of uncontrolled hyperglycemia YANETH on CKD3 Hypertension hx of gastric sleeve Hx of meningitis hx of Left 5th toe amputation (12/2023) Plan: Left foot osteomyelitis with infected left foot abscess s/p I&D (23) NIDDM2 with hx of uncontrolled hyperglycemia Patient follows Dr. Coombs. Previously underwent L 5th toe amputation last year. Venous ultrasound negative. Arterial doppler negative. xray foot (09/26): Progressive osseous destructive changes at the level of the fourth metatarsal head and proximal phalanx base, concerning for acute osteomyelitis MRI left foot: Osteomyelitis fourth metatarsal, fourth proximal and middle phalanges, abnormal signal second proximal phalanx presumably osteomyelitis, 2 cm abscess soft tissue lateral forefoo Dr. Coombs performed I&D of left foot abscess, left foot debridement down to bone continue empiric merrem / vanc (2/2-) Patient needs 6 weeks of IV antibiotics. Infectious disease consulted Deep tissue wound culture and bone tissue culture showing mixed growth. Final cultures pending. Analgesics as needed. Acute cystitis without hematuria Urine culture: E. Coli Patient is on IV Merrem YANETH on CKD3 continue to monitor renal function continue IV fluids Monitor and replete electrolytes as needed Hypertension Continue oral amlodipine. VTE: SCD Code: Full Dispo: Home
--- NOTE | 2024-09-30 18:40 | PN ---
Subjective: The patient is lying in bed. Denies any problems with antibiotics. Denies any headache , nausea, vomiting, chest pain, abdominal pain, constipation, or diarrhea. Objective: Vital Signs: Temperature 98, pulse 80, respirations 18, blood pressure 172/89. Lungs: Clear to auscultation. Heart: S1, S2. Regular. Abdomen: Soft, nontender. Bowel sounds present. Extremity: Trace edema. Laboratory Data: WBC 4.6, hemoglobin 8.8, platelets are 159. Chemistry shows BUN of 23, creatinine 1.98. The patient is currently on Merrem and vancomycin. Assessment/plan: Osteomyelitis of the left foot and status post debridement of abscess. The patient is doing well. Anemia of chronic disease, continue antibiotic for 6 weeks. [facility] Followup with primary care and continue to monitor blood sugars. Diabete s mellitus and diabetic neuropathy. NF/MODL Voice ID: [id number] Report ID: [id number]
[2024-09-30] MEDS: AMLODIPINE 5 MG TAB PO ONE (20:37)
[2024-10-01 06:08] LABS: Absolute Eosinophils 0.1 K/uL (0-0.5); Absolute Lymphocytes (CBC) 1.5 K/uL (0.7-4.9); Absolute Monocytes 0.3 K/uL (0.1-1.3); Absolute Neutrophil 2.4 K/uL (1.8-8.0); Basophils % 0.7 % (0-1.3); Eosinophils % 2.3 % (0-4.4); Hematocrit 26.3 % (39.6-49.0); Hemoglobin 8.6 g/dL (13.6-17.9); Lymphocytes % 34.6 % (15.3-44.8); MCH 28.2 pg (27.0-35.0); MCHC 32.7 g/dL (32.0-36.0); MCV 86.3 fL (80-100); Monocytes % 6.5 % (3.3-12.3); Neutrophils % 55.9 % (41.7-73.7); Nucleated Red Blood Cells % 0.1 % (0-0); Platelets 173 thou/uL (152-406); RBC Red Blood Cell Count 3.05 M/uL (4.33-5.43); Red Cell Distribution Width 16.8 % (12.1-15.2)
[2024-10-01 06:27] LABS: Anion Gap 8.5 mEq/L (5.0-15.0); Potassium 4.5 mEq/L (3.5-5.1)
[2024-10-01] MEDS: AMLODIPINE 10 MG TAB PO SCH (08:01)
--- NOTE | 2024-10-01 11:40 | PN ---
Date of Progress Note: 10/01/2024 Subjective: The patient is awake, alert. No complaint. Objective: Vital Signs: Stable, afebrile. Skin: Examination of the wound reveals good granulation tissue, very minimal fibrin. Decreased eryt rylie, warmth, and edema around the wound. Wound is healing well. Laboratory Data: White count is normal. There is no left shift. Cultures are still pending on the wound. Assessment: Status post debridement of infected wound, left foot. Recommendations: Continue antibiotics as ordered. Check cultures and adjust antibiotics accordingly . Wound care as ordered. We will start wound VAC with [facility] tomorrow. We will see him in the [facility] upon discharge next week. /MODL Voice ID: [id number] Report ID: [id number]
[2024-10-01] MEDS: VANCOMYCIN 1.25 GM in NA CHLORIDE 0.9% 250 ML IVPB SCH (12:02)
--- NOTE | 2024-10-01 16:38 | P.PN ---
Subjective Date of Service: 10/01/24 Chief Complaint: Diabetic foot infection Patient has no new complaint No recorded fever. Patient is tolerating diet. Patient is ambulatory. Physical Examination - Vital Signs Temperature: 98.2 F Blood Pressure: 139/64 Pulse: 79 Respirations: 20 Pulse Ox (%): 97 - Studies Microbiology Data (last 24 hrs): 09/26/24 16:35 Wound - Left Foot Gram Stain - Final Assessment And Plan - Plan Physical Exam: GEN: Alert, oriented, NAD, obese. CV: Regular rate and rhythm, no edema Pulm: Nonlabored respirations on room air, clear bilaterally ABD: soft, nontender, nondistended Integumentary: surgical dressing in place Neuro: Normal speech, normal affect Problem List: Left foot osteomyelitis with infected left foot abscess s/p I&D (2/3) NIDDM2 with hx of uncontrolled hyperglycemia YANETH on CKD3 Hypertension hx of gastric sleeve Hx of meningitis hx of Left 5th toe amputation (12/2023) Plan: Left foot osteomyelitis with infected left foot abscess s/p I&D (23) NIDDM2 with hx of uncontrolled hyperglycemia Patient follows Dr. Coombs. Previously underwent L 5th toe amputation last year. Venous ultrasound negative. Arterial doppler negative. xray foot (09/26): Progressive osseous destructive changes at the level of the fourth metatarsal head and proximal phalanx base, concerning for acute osteomyelitis MRI left foot: Osteomyelitis fourth metatarsal, fourth proximal and middle phalanges, abnormal signal second proximal phalanx presumably osteomyelitis, 2 cm abscess soft tissue lateral forefoo Dr. Coombs performed I&D of left foot abscess, left foot debridement down to bone continue empiric merrem / vanc (2/2-) Patient needs 6 weeks of IV antibiotics. Infectious disease consulted Deep tissue wound culture and bone tissue culture showing mixed growth. Final cultures pending. Outpatient antibiotic choice pending final culture result. Analgesics as needed. Acute cystitis without hematuria Urine culture: E. Coli Patient is on IV Merrem. Antibiotics day 6 YANETH on CKD3 Renal function significantly improved. Reduce IV fluid rate Nephrology consulted. Hypertension Continue oral amlodipine. VTE: SCD Code: Full Dispo: Home
[2024-10-01] MEDS: NA CHLORIDE 0.9% 1,000 ML IV SCH (16:53)
--- NOTE | 2024-10-01 21:54 | P.CNS ---
Date of Consult: 10/01/24 Reason for Consult: YANETH Requesting Physician: claudia rivera Chief Complaint: Diabetic foot infection History of Present Illness: Patient is a 49-year-old male with uncontrolled diabetes mellitus complicated by diabetic foot infection status post surgery in the past. He is presenting with a left open wound on his right foot present for the past month. Patient is known to general surgery and has undergone left fifth toe amputation last year. He is being now admitted for cellulitis with possible osteomyelitis. Foot x-ray was negative. MRI cannot be performed until Saturday. General surgery has been contacted and will be happy to consult. [id number] 16:10 This 49 yrs old Male presents to ER via Ambulatory with complaints of Wound cp Check - left. 16:10 The patient presents with pain, that is acute, swelling, tenderness. The complaints cp affect the left foot and left lower leg. Associated signs and symptoms: Pertinent positives: plantar side open wound to left foot times 1 month. 16:10 Treatment prior to arrival includes: no previous treatment. He denies NSAIDs. Denies any difficulty with urination. 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 - Family History Father Medical History: Heart disease, Diabetes Brother Medical History: Cancer, Other (see notes) Notes: Stomach cancer - Social History Smoking Status: Unknown if ever smoked Alcohol use: No CD- Drugs: No Caffeine use: Yes Review of Systems 10-point ROS is otherwise unremarkable Cardiovascular: Edema Physical Examination Temp Pulse Resp BP Pulse Ox 98.1 F 83 18 187/83 H 98 10/01/24 20:00 10/01/24 20:00 10/01/24 20:48 10/01/24 20:00 10/01/24 20:48 General: In no apparent distress, Cooperative, Obese HEENT: Atraumatic Neck: Supple Respiratory: Clear to auscultation bilaterally, Normal air movement Cardiovascular: Regular rate/rhythm, Edema Gastrointestinal: Soft and benign, Non-distended Musculoskeletal: No clubbing, No contractures Integumentary: No cyanosis, Diabetic ulcer (Left foot) Neurological: Normal speech Blood work reviewed in the chart. Imagings Data: [id number] EXAM: Chest Single View HISTORY: PICC line insertion COMPARISON: 01/03/2024 FINDINGS: LUNGS/PLEURA: Pulmonary vascular congestion. MEDIASTINUM: The mediastinal silhouette is within normal limits. CARDIAC: Stable size and configuration. UPPER ABDOMEN: No significant abnormality. BONES: No acute abnormality. LINES/TUBES/OTHER: Right subclavian approach PICC with tip at the distal SVC. IMPRESSION: 1. PICC tip overlies the SVC is in satisfactory position. 2. Pulmonary vascular congestion. [id number] EXAM: Foot Left Wo Cont HISTORY: Foot pain. Swelling. Osteomyelitis COMPARISON: December 2023 MRI TECHNIQUE: Axial, sagittal and coronal magnetic resonance imaging of the left f oot obtained FINDINGS: Resection portion of the fifth metatarsal. Abnormal signal involves almost all of the fourth metatarsal and fourth proximal phalanx. Abnormal signal involves fourth middle phalanx. Abnormal signal involves second proximal phalanx. Periosteal deposition second and third metatarsals. 2 cm abscess lateral forefoot. IMPRESSION: Osteomyelitis fourth metatarsal, fourth proximal and middle phalanges Abnormal signal second proximal phalanx presumably osteomyelitis 2 cm abscess soft tissue lateral forefoot Conclusions/Impression: Stage I YANETH CKD III with Proteinuria -No NSAIDs -Change IVF to 1/2NS Metabolic Acidosis -Start oral bicarb HTN with CKD -Continue Amlodipine DM II with Polyneuropathy & CKD -RISS -Continue Gabapentin Anemia in chronic illness -Monitor H&H Hospitalist note reviewed Thank you kindly for the consultation
[2024-10-02] MEDS: NACHLORIDE 0.45% 1,000 ML IV SCH (01:34)
[2024-10-02 07:08] LABS: Absolute Eosinophils 0.1 K/uL (0-0.5); Absolute Lymphocytes (CBC) 1.5 K/uL (0.7-4.9); Absolute Monocytes 0.3 K/uL (0.1-1.3); Absolute Neutrophil 2.5 K/uL (1.8-8.0); Basophils % 0.7 % (0-1.3); Eosinophils % 2.3 % (0-4.4); Hematocrit 26.8 % (39.6-49.0); Hemoglobin 8.7 g/dL (13.6-17.9); Lymphocytes % 33.5 % (15.3-44.8); MCH 27.9 pg (27.0-35.0); MCHC 32.4 g/dL (32.0-36.0); MCV 85.9 fL (80-100); MPV 9.1 fL (7.6-11.3); Neutrophils % 57.5 % (41.7-73.7); Nucleated Red Blood Cells % 0.1 % (0-0); Platelets 183 thou/uL (152-406); RBC Red Blood Cell Count 3.12 M/uL (4.33-5.43); Red Cell Distribution Width 16.6 % (12.1-15.2)
[2024-10-02 07:15] LABS: Albumin 1.6 g/dL (3.4-5.0); Anion Gap 6.6 mEq/L (5.0-15.0); Phosphorus 2.6 mg/dL (2.5-4.9); Potassium 4.6 mEq/L (3.5-5.1); Uric Acid 6.7 mg/dL (3.5-7.2)
[2024-10-02] MEDS: DRISDOL (VITAMIN D=ERGOCALCIFEROL) 50000 UNIT CAP PO SCH (08:06)
[2024-10-02] MEDS: SODIUM BICARB 325 MG TAB PO SCH ×2 (08:06→20:32)
[2024-10-02] MEDS: DOCUSATE NA 100 MG CAP PO SCH (08:06)
[2024-10-02] MEDS: COLLAGENASE 30 GM OINTMENT TOP SCH (08:08)
--- NOTE | 2024-10-02 12:07 | P.PN ---
Nephrology note (S) Pt has no acute complaints, denies abd pain, N/V/D, no leg pain, wound vac in place (O) Vitals reviewed in the EMR General: In no apparent distress, HEENT: Atraumatic, not on o2 Neck: Supple Respiratory: Non tachypnec, Normal air movement Gastrointestinal: ND, NT Musculoskeletal: No sig edema Integumentary: Lt foot lateral wound vac Neurological: Normal speech, awake, alert Blood work reviewed in the chart. Conclusions/Impression: Stage I YANETH, recurrent episode Underlying CKD NOS with hx of nephrotic range proteinuria in the past, Up/c > 3.5 last yr -Cont to monitor renal function tests closely HTN with CKD -BP mod elevated, needs optimization, d/c IVF, lower sodium bicarb Hx of LVH, likely hypertensive heart and kidney disease, elevated BNP -Monitor closely, place on a SGLT2i agent as OP if insurance covers
[2024-10-02] MEDS: CIPROFLOXACIN 400mg IV 400 MG/200 ML BAG IV SCH (15:09)
--- NOTE | 2024-10-02 17:29 | P.PN ---
Subjective Date of Service: 10/02/24 Chief Complaint: Diabetic foot infection Patient has no new complaint Patient is tolerating diet. Patient is ambulatory. Physical Examination - Vital Signs Temperature: 97.9 F Blood Pressure: 147/70 Pulse: 76 Respirations: 16 Pulse Ox (%): 99 - Studies Microbiology Data (last 24 hrs): 09/26/24 16:35 Wound - Left Foot Gram Stain - Final 09/26/24 16:35 Wound - Left Foot Culture & Sensitivity - Final Escherichia Coli Esbl Staph Aureus Enterococcus Faecalis 09/26/24 16:25 Blood - Blood Aerobic Blood Culture - Final No growth in 5 days. 09/26/24 16:25 Blood - Blood Anaerobic Blood Culture - Final No growth in 5 days. 09/26/24 16:35 Blood - Blood Aerobic Blood Culture - Final No growth in 5 days. 09/26/24 16:35 Blood - Blood Anaerobic Blood Culture - Final No growth in 5 days. Assessment And Plan - Plan Physical Exam: GEN: Alert, oriented, NAD, obese. CV: Regular rate and rhythm, no edema Pulm: Nonlabored respirations on room air, clear bilaterally ABD: soft, nontender, nondistended Integumentary: surgical dressing in place Neuro: Normal speech, normal affect Problem List: Left foot osteomyelitis with infected left foot abscess s/p I&D (09/28) NIDDM2 with hx of uncontrolled hyperglycemia YANETH on CKD3 Hypertension hx of gastric sleeve Hx of meningitis hx of Left 5th toe amputation (12/2023) Plan: Left foot osteomyelitis with infected left foot abscess s/p I&D (3) NIDDM2 with hx of uncontrolled hyperglycemia Patient follows Dr. Coombs. Previously underwent L 5th toe amputation last year. Venous ultrasound negative. Arterial doppler negative. xray foot (09/26): Progressive osseous destructive changes at the level of the fourth metatarsal head and proximal phalanx base, concerning for acute osteomyelitis MRI left foot: Osteomyelitis fourth metatarsal, fourth proximal and middle phalanges, abnormal signal second proximal phalanx presumably osteomyelitis, 2 cm abscess soft tissue lateral forefoo Dr. Coombs performed I&D of left foot abscess, left foot debridement down to bone continue empiric merrem / vanc (/-) Patient needs 6 weeks of IV antibiotics. Infectious disease consulted Deep tissue wound culture and bone tissue culture: MSSA sensitive to fluoroquinolones. Patient prescribed 5 weeks of outpatient IV Cipro to complete 6 weeks of treatment. Analgesics as needed. Discharge pending home health arrangement. Acute cystitis without hematuria Urine culture: E. Coli Patient is on IV Merrem. Antibiotics day 7 YANETH on CKD3 Renal function significantly improved. IV fluid discontinued. Nephrology input appreciated. Oral bicarb replacement per nephrology. Hypertension Continue oral amlodipine. VTE: Heparin SQ Code: Full Dispo: Home
[2024-10-03] MEDS: HEPARIN 5000 UNIT/ML 1 ML VIAL SQ SCH (00:38)
[2024-10-03] MEDS: AMINO ACIDS/PROTEIN HYDROLYS 30 ML LIQUID.PKT PO SCH (12:31)
--- NOTE | 2024-10-03 15:16 | P.PN ---
Subjective Date of Service: 10/03/24 Chief Complaint: Diabetic foot infection Patient has no new complaint He states his pain is well-controlled. Physical Examination - Vital Signs Temperature: 97.8 F Blood Pressure: 150/77 Pulse: 65 Respirations: 20 Pulse Ox (%): 100 - Studies Microbiology Data (last 24 hrs): 09/26/24 16:35 Wound - Left Foot Gram Stain - Final 09/26/24 16:35 Wound - Left Foot Culture & Sensitivity - Final Escherichia Coli Esbl Staph Aureus Enterococcus Faecalis Assessment And Plan - Plan Physical Exam: GEN: Alert, oriented, NAD, obese. CV: Regular rate and rhythm, no edema Pulm: Nonlabored respirations on room air, clear bilaterally ABD: soft, nontender, nondistended Integumentary: Wound VAC applied to sole of left foot wound. Neuro: Normal speech, normal affect Problem List: Left foot osteomyelitis with infected left foot abscess s/p I&D (09/28) NIDDM2 with hx of uncontrolled hyperglycemia YANETH on CKD3 Hypertension hx of gastric sleeve Hx of meningitis hx of Left 5th toe amputation (12/2023) Plan: Left foot osteomyelitis with infected left foot abscess s/p I&D (3) NIDDM2 with hx of uncontrolled hyperglycemia Patient follows Dr. Coombs. Previously underwent L 5th toe amputation last year. Venous ultrasound negative. Arterial doppler negative. xray foot (09/26): Progressive osseous destructive changes at the level of the fourth metatarsal head and proximal phalanx base, concerning for acute osteomyelitis MRI left foot: Osteomyelitis fourth metatarsal, fourth proximal and middle phalanges, abnormal signal second proximal phalanx presumably osteomyelitis, 2 cm abscess soft tissue lateral forefoo Dr. Coombs performed I&D of left foot abscess, left foot debridement down to bone Status post empiric merrem / vanc (/-) Patient needs 6 weeks of IV antibiotics. Infectious disease is following. Deep tissue wound culture and bone tissue culture: MSSA sensitive to fluoroquinolones. Antibiotics changed to IV Cipro. Patient prescribed 5 weeks of outpatient IV Cipro to complete 6 weeks of treatment. Analgesics as needed. Discharge pending home health arrangement. Acute cystitis without hematuria Urine culture: E. Coli Patient completed 1 week of IV Merrem. YANETH on CKD3 Renal function significantly improved. IV fluid discontinued. Nephrology input appreciated. Oral bicarb replacement per nephrology. Hypertension Continue oral amlodipine. VTE: Heparin SQ Code: Full Dispo: Home
--- NOTE | 2024-10-03 20:41 | P.PN ---
Date of Service: 10/03/24 Vital Signs Temp Pulse Resp BP Pulse Ox 98 F 77 17 150/70 H 98 10/03/24 16:00 10/03/24 16:00 10/03/24 16:00 10/03/24 16:00 10/03/24 16:00 Medications Hydrocodone Bitart/Acetaminophen (Hydrocodone/Apap 7.5/325 Mg Tab) 1 tab PO Q4H PRN PRN Reason: Pain scale 5-7 (Moderate) Last Admin: 10/02/24 20:32 Dose: 1 tab Amino Acids (Amino Acids/Protein Hydrolys 30 Ml Liquid.Pkt) 30 ml PO BID [facility] Last Admin: 10/03/24 12:31 Dose: 30 ml Amlodipine Besylate (Amlodipine 10 Mg Tab) 10 mg PO DAILY [facility] Last Admin: 10/03/24 09:43 Dose: 10 mg Collagenase (Collagenase 30 Gm Ointment) 1 appl TOP DAILY [facility] Last Admin: 10/03/24 09:00 Dose: Not Given Docusate Sodium (Docusate Na 100 Mg Cap) 100 mg PO BID [facility] Last Admin: 10/03/24 09:43 Dose: 100 mg Gabapentin (Gabapentin 300 Mg Cap) 300 mg PO TID [facility] Last Admin: 10/03/24 16:38 Dose: 300 mg Heparin Sodium (Porcine) (Heparin 5000 Unit/Ml 1 Ml Vial) 5,000 unit SQ Q8HR [facility] Last Admin: 10/03/24 16:37 Dose: 5,000 unit Hydralazine HCl (Hydralazine Hcl 20 Mg/Ml Vial) 10 mg IV Q6HP PRN PRN Reason: FOR SBP>160 OR DBP>100 MMHG Hydromorphone HCl (Hydromorphone Hcl 1 Mg/Ml Inj) 1 mg IV Q4H PRN PRN Reason: Pain scale 8-10 (Severe) Last Admin: 10/03/24 12:16 Dose: 1 mg Ciprofloxacin/Dextrose (Cipro 400 Mg/200 Ml Ivpb (Premix)) 400 mg in 200 mls @ 200 mls/hr IV Q12HR [facility]; Protocol Last Admin: 10/03/24 10:08 Dose: 200 mls Vancomycin HCl 1 gm/ Sodium (Chloride) 250 mls @ 166.667 mls/hr IVPB Q24H [facility]; Protocol Ondansetron HCl (Ondansetron 4 Mg/2 Ml Vial) 4 mg IV Q8H PRN PRN Reason: NAUSEA / VOMITING Pantoprazole Sodium (Pantoprazole 40mg Tablet) 40 mg PO ACB [facility]; Protocol Sodium Bicarbonate (Sodium Bicarb 325 Mg Tab) 325 mg PO BID [facility] Last Admin: 10/03/24 09:44 Dose: 325 mg Microbiology Results 09/26/24 16:35 Wound - Left Foot Gram Stain - Final 09/26/24 16:35 Wound - Left Foot Culture & Sensitivity - Final Escherichia Coli Esbl Staph Aureus Enterococcus Faecalis 09/26/24 16:25 Blood - Blood Aerobic Blood Culture - Final No growth in 5 days. 09/26/24 16:25 Blood - Blood Anaerobic Blood Culture - Final No growth in 5 days. 09/26/24 16:35 Blood - Blood Aerobic Blood Culture - Final No growth in 5 days. 09/26/24 16:35 Blood - Blood Anaerobic Blood Culture - Final No growth in 5 days. 09/26/24 18:17 Clean Catch Urine [place] Count - Final >100,000 CFU/ML. 09/26/24 18:17 Clean Catch Urine - Final Escherichia Coli Assessment/ Plan: Nephrology No dyspnea No chest pain No acute events overnight Vitals, medications, blood work and imaging reviewed in the chart General: In no apparent distress, Cooperative, Obese HEENT: Atraumatic Neck: Supple Respiratory: Clear to auscultation bilaterally, Normal air movement Cardiovascular: Regular rate/rhythm, Edema Gastrointestinal: Soft and benign, Non-distended Musculoskeletal: No clubbing, No contractures Integumentary: No cyanosis, Diabetic ulcer (Left foot) Neurological: Normal speech Blood work reviewed in the chart. Imagings Data: [id number] EXAM: Chest Single View HISTORY: PICC line insertion COMPARISON: 01/03/2024 FINDINGS: LUNGS/PLEURA: Pulmonary vascular congestion. MEDIASTINUM: The mediastinal silhouette is within normal limits. CARDIAC: Stable size and configuration. UPPER ABDOMEN: No significant abnormality. BONES: No acute abnormality. LINES/TUBES/OTHER: Right subclavian approach PICC with tip at the distal SVC. IMPRESSION: 1. PICC tip overlies the SVC is in satisfactory position. 2. Pulmonary vascular congestion. [id number] EXAM: Foot Left Wo Cont HISTORY: Foot pain. Swelling. Osteomyelitis COMPARISON: December 2023 MRI TECHNIQUE: Axial, sagittal and coronal magnetic resonance imaging of the left foot obtained FINDINGS: Resection portion of the fifth metatarsal. Abnormal signal involves almost all of the fourth metatarsal and fourth proximal phalanx. Abnormal signal involves fourth middle phalanx. Abnormal signal involves second proximal phalanx. Periosteal deposition second and third metatarsals. 2 cm abscess lateral forefoot. 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 Montano Hospitalist note reviewed
[2024-10-04] MEDS: PANTOPRAZOLE 40MG TABLET PO SCH (08:51)
[2024-10-04] MEDS ORDERED: VANCOMYCIN 1 GM in NA CHLORIDE 0.9% 250 ML IVPB SCH (12:00)
--- NOTE | 2024-10-04 12:44 | P.PN ---
Subjective Date of Service: 10/04/24 Chief Complaint: Diabetic foot infection Patient has no new complaint. He states his pain is well-controlled. Physical Examination - Vital Signs Temperature: 98.1 F Blood Pressure: 149/75 Pulse: 74 Respirations: 19 Pulse Ox (%): 97 Assessment And Plan - Plan Physical Exam: GEN: Alert, oriented, NAD, obese. CV: Regular rate and rhythm, no edema Pulm: Nonlabored respirations on room air, clear bilaterally ABD: soft, nontender, nondistended Integumentary: Wound VAC applied to sole of left foot wound. Neuro: Normal speech, normal affect Problem List: Left foot osteomyelitis with infected left foot abscess s/p I&D (09/28) NIDDM2 with hx of uncontrolled hyperglycemia YANETH on CKD3 Hypertension hx of gastric sleeve Hx of meningitis hx of Left 5th toe amputation (12/2023) Plan: Left foot osteomyelitis with infected left foot abscess s/p I&D (09/28) NIDDM2 with hx of uncontrolled hyperglycemia Patient follows Dr. Coombs. Previously underwent L 5th toe amputation last year. Venous ultrasound negative. Arterial doppler negative. xray foot (09/26): Progressive osseous destructive changes at the level of the fourth metatarsal head and proximal phalanx base, concerning for acute osteomyelitis MRI left foot: Osteomyelitis fourth metatarsal, fourth proximal and middle phalanges, abnormal signal second proximal phalanx presumably osteomyelitis, 2 cm abscess soft tissue lateral forefoo Dr. Coombs performed I&D of left foot abscess, left foot debridement down to bone Status post empiric merrem / vanc (2/2-) Patient needs 6 weeks of IV antibiotics. Infectious disease is following. Deep tissue wound culture and bone tissue culture: MSSA sensitive to fluoroquinolones. Antibiotics changed to IV Cipro. Patient prescribed 5 weeks of outpatient IV Cipro to complete 6 weeks of treatment. Analgesics as needed. Discharge pending home health arrangement. Acute cystitis without hematuria Urine culture: E. Coli Patient completed 1 week of IV Merrem. YANETH on CKD3 Renal function significantly improved and stable. Status post IV fluid. Nephrology is following. Oral bicarb discontinued. Hypertension Continue oral amlodipine. VTE: Heparin SQ Code: Full Dispo: Awaiting home med arrangement for discharge home
--- NOTE | 2024-10-04 15:10 | P.PN ---
Date of Service: 10/04/24 Vital Signs Temp Pulse Resp BP Pulse Ox 98.1 F 74 19 149/75 H 97 10/04/24 12:44 10/04/24 12:44 10/04/24 12:44 10/04/24 12:44 10/04/24 12:44 Medications Hydrocodone Bitart/Acetaminophen (Hydrocodone/Apap 7.5/325 Mg Tab) 1 tab PO Q4H PRN PRN Reason: Pain scale 5-7 (Moderate) Last Admin: 10/02/24 20:32 Dose: 1 tab Amino Acids (Amino Acids/Protein Hydrolys 30 Ml Liquid.Pkt) 30 ml PO BID [facility] Last Admin: 10/04/24 08:51 Dose: 30 ml Amlodipine Besylate (Amlodipine 10 Mg Tab) 10 mg PO DAILY [facility] Last Admin: 10/04/24 08:51 Dose: 10 mg Collagenase (Collagenase 30 Gm Ointment) 1 appl TOP DAILY [facility] Last Admin: 10/04/24 08:51 Dose: Not Given Docusate Sodium (Docusate Na 100 Mg Cap) 100 mg PO BID [facility] Last Admin: 10/04/24 08:51 Dose: 100 mg Gabapentin (Gabapentin 300 Mg Cap) 300 mg PO TID [facility] Last Admin: 10/04/24 13:56 Dose: 300 mg Heparin Sodium (Porcine) (Heparin 5000 Unit/Ml 1 Ml Vial) 5,000 unit SQ Q8HR [facility] Last Admin: 10/04/24 08:50 Dose: 5,000 unit Hydralazine HCl (Hydralazine Hcl 20 Mg/Ml Vial) 10 mg IV Q6HP PRN PRN Reason: FOR SBP>160 OR DBP>100 MMHG Hydromorphone HCl (Hydromorphone Hcl 1 Mg/Ml Inj) 1 mg IV Q4H PRN PRN Reason: Pain scale 8-10 (Severe) Last Admin: 10/04/24 03:50 Dose: 1 mg Ciprofloxacin/Dextrose (Cipro 400 Mg/200 Ml Ivpb (Premix)) 400 mg in 200 mls @ 200 mls/hr IV Q12HR [facility]; Protocol Last Admin: 10/04/24 08:50 Dose: 200 mls Vancomycin HCl 1 gm/ Sodium (Chloride) 250 mls @ 166.667 mls/hr IVPB Q24H [facility]; Protocol Ondansetron HCl (Ondansetron 4 Mg/2 Ml Vial) 4 mg IV Q8H PRN PRN Reason: NAUSEA / VOMITING Pantoprazole Sodium (Pantoprazole 40mg Tablet) 40 mg PO ACB [facility]; Protocol Last Admin: 10/04/24 08:51 Dose: 40 mg Sodium Bicarbonate (Sodium Bicarb 325 Mg Tab) 325 mg PO BID [facility] Last Admin: 10/04/24 08:52 Dose: 325 mg Microbiology Results 09/26/24 16:35 Wound - Left Foot Gram Stain - Final 09/26/24 16:35 Wound - Left Foot Culture & Sensitivity - Final Escherichia Coli Esbl Staph Aureus Enterococcus Faecalis 09/26/24 16:25 Blood - Blood Aerobic Blood Culture - Final No growth in 5 days. 09/26/24 16:25 Blood - Blood Anaerobic Blood Culture - Final No growth in 5 days. 09/26/24 16:35 Blood - Blood Aerobic Blood Culture - Final No growth in 5 days. 09/26/24 16:35 Blood - Blood Anaerobic Blood Culture - Final No growth in 5 days. 09/26/24 18:17 Clean Catch Urine [place] Count - Final >100,000 CFU/ML. 09/26/24 18:17 Clean Catch Urine - Final Escherichia Coli Assessment/ Plan: Nephrology No dyspnea No chest pain No acute events overnight Vitals, medications, blood work and imaging reviewed in the chart General: In no apparent distress, Cooperative, Obese HEENT: Atraumatic Neck: Supple Respiratory: Clear to auscultation bilaterally, Normal air movement Cardiovascular: Regular rate/rhythm, Edema Gastrointestinal: Soft and benign, Non-distended Musculoskeletal: No clubbing, No contractures Integumentary: No cyanosis, Diabetic ulcer (Left foot) Neurological: Normal speech Blood work reviewed in the chart. Imagings Data: [id number] EXAM: Chest Single View HISTORY: PICC line insertion COMPARISON: 01/03/2024 FINDINGS: LUNGS/PLEURA: Pulmonary vascular congestion. MEDIASTINUM: The mediastinal silhouette is within normal limits. CARDIAC: Stable size and configuration. UPPER ABDOMEN: No significant abnormality. BONES: No acute abnormality. LINES/TUBES/OTHER: Right subclavian approach PICC with tip at the distal SVC. IMPRESSION: 1. PICC tip overlies the SVC is in satisfactory position. 2. Pulmonary vascular congestion. [id number] EXAM: Foot Left Wo Cont HISTORY: Foot pain. Swelling. Osteomyelitis COMPARISON: December 2023 MRI TECHNIQUE: Axial, sagittal and coronal magnetic resonance imaging of the left foot obtained FINDINGS: Resection portion of the fifth metatarsal. Abnormal signal involves almost all of the fourth metatarsal and fourth proximal phalanx. Abnormal signal involves fourth middle phalanx. Abnormal signal involves second proximal phalanx. Periosteal deposition second and third metatarsals. 2 cm abscess lateral forefoot. 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
[2024-10-04] MEDS: carvediloL 6.25 MG TAB PO SCH (17:02)
[2024-10-04] MEDS: JUVEN PACKET PO SCH (17:12)
[2024-10-05] MEDS: VANCOMYCIN 1 GM in NA CHLORIDE 0.9% 250 ML IVPB SCH (00:34)
[2024-10-05 05:35] LABS: Absolute Basophils 0.1 K/uL (0-0.5); Absolute Eosinophils 0.1 K/uL (0-0.5); Absolute Lymphocytes (CBC) 2.2 K/uL (0.7-4.9); Absolute Monocytes 0.4 K/uL (0.1-1.3); Absolute Neutrophil 3.7 K/uL (1.8-8.0); Basophils % 0.9 % (0-1.3); Eosinophils % 1.8 % (0-4.4); Hematocrit 25.7 % (39.6-49.0); Hemoglobin 8.3 g/dL (13.6-17.9); Lymphocytes % 34.4 % (15.3-44.8); MCH 27.8 pg (27.0-35.0); MCHC 32.3 g/dL (32.0-36.0); MCV 86.1 fL (80-100); MPV 9.2 fL (7.6-11.3); Monocytes % 6.1 % (3.3-12.3); Neutrophils % 56.8 % (41.7-73.7); Nucleated Red Blood Cells % 0.1 % (0-0); Platelets 215 thou/uL (152-406); RBC Red Blood Cell Count 2.99 M/uL (4.33-5.43); Red Cell Distribution Width 17.2 % (12.1-15.2)
[2024-10-05 06:17] LABS: Anion Gap 6.5 mEq/L (5.0-15.0); Potassium 4.5 mEq/L (3.5-5.1); Uric Acid 6.5 mg/dL (3.5-7.2)
[2024-10-05 07:02] LABS: Hepatitis B surface AG Interp. Nonreactive (Nonreactive); Hepatitis C Virus Ab Nonreactive (Nonreactive)
[2024-10-05 07:11] LABS: Hepatitis B Surface Ab - Quant < 3.10 mIU/mL (<8.0)
[2024-10-05 07:12] LABS: HBsAG Nonreactive Report Report
[2024-10-05 09:04] LABS: Specific Gravity 1.021 (1.005-1.030); Sqamous Epithelial <5 /HPF (None Seen); Urine Bacteria None Seen /HPF (<20); Urine Bilirubin NEGATIVE (Negative); Urine Blood 2+ (Negative); Urine Clarity Turbid (Clear); Urine Color Light-Yellow (Yellow); Urine Culture Reflex Order NOT NEEDED; Urine Glucose 1+ (Negative); Urine Ketones NEGATIVE (Negative); Urine Micro Reflex YN NO BILL MICROSCOPIC; Urine Mucus Slight /HPF (None Seen); Urine Nitrite NEGATIVE (Negative); Urine Protein 3+ (Negative); Urine Urobilinogen Normal (Normal); Urine WBC <5 /HPF (<5)
--- NOTE | 2024-10-05 09:28 | P.DS ---
Admission Date: 09/26/24 Discharge Date: 10/05/24 Disposition: DC HOME/HOME HEALTH CARE Discharge Condition: FAIR Reason for Admission: Diabetic foot infection Brief History of Present Illness: Patient is a 49-year-old male with uncontrolled diabetes mellitus complicated by diabetic foot infection status post surgery in the past presented with a left open wound on his right foot present for the past month. Patient is known to general surgery Dr. Coombs and he underwent left fifth toe amputation last year. Patient admitted for cellulitis with possible osteomyelitis. Foot x-ray was negative. Hospital Course: Problem List: Left foot osteomyelitis with infected left foot abscess s/p I&D (09/28) NIDDM2 with hx of uncontrolled hyperglycemia YANETH on CKD3 Hypertension hx of gastric sleeve Hx of meningitis hx of Left 5th toe amputation (12/2023) Plan: Left foot osteomyelitis with infected left foot abscess s/p I&D (3) NIDDM2 with hx of uncontrolled hyperglycemia Patient follows Dr. Coombs. Previously underwent L 5th toe amputation last year. Venous ultrasound negative. Arterial doppler negative. xray foot (09/26): Progressive osseous destructive changes at the level of the fourth metatarsal head and proximal phalanx base, concerning for acute osteomyelitis MRI left foot: Osteomyelitis fourth metatarsal, fourth proximal and middle phalanges, abnormal signal second proximal phalanx presumably osteomyelitis, 2 cm abscess soft tissue lateral forefoo Dr. Coombs performed I&D of left foot abscess, left foot debridement down to bone Status post empiric merrem / vanc (2/-) Urine culture grew E. coli. Patient needs 6 weeks of IV antibiotics. Infectious disease is following. Deep tissue wound culture and bone tissue culture: ESBL E. coli, Enterococcus and MSSA IV vancomycin changed to IV Cipro. Patient prescribed 5 weeks of outpatient IV Cipro and IV Invanz to complete 6 weeks of treatment. Analgesics as needed. Discharge pending home health arrangement. Wound VAC being applied 3 times a week per Dr. Coombs recommendation. Acute cystitis without hematuria Urine culture: E. Coli Patient completed 1 week of IV Merrem. YANETH on CKD3 Renal function significantly improved and stable. Status post IV fluid. Nephrology is following. Oral bicarb discontinued. Hypertension Continue oral amlodipine. Vital Signs/Physical Exam: Temp Pulse Resp BP Pulse Ox 98.0 F 66 16 183/90 H 100 10/05/24 08:00 10/05/24 08:28 10/05/24 08:00 10/05/24 08:28 10/05/24 08:00 General: Alert, In no apparent distress, Oriented x3, Obese HEENT: Mucous membr. moist/pink Neck: JVD not distended Respiratory: Clear to auscultation bilaterally, Normal air movement Cardiovascular: Regular rate/rhythm, Normal S1 S2 Gastrointestinal: Normal bowel sounds, Soft and benign, Non-distended Musculoskeletal: No swelling Integumentary: No cyanosis Neurological: Normal strength at 5/5 x4 extr Laboratory Data at Discharge: WBC 6.40 thou/uL (4.3-10.9) 10/05/24 05:20 Hgb 8.3 g/dL (13.6-17.9) L 10/05/24 05:20 Hct 25.7 % (39.6-49.0) L 10/05/24 05:20 Plt Count 215 thou/uL (152-406) 10/05/24 05:20 PT 11.2 SECONDS (9.4-12.5) 09/26/24 16:35 INR 1.07 09/26/24 16:35 APTT 28.5 SECONDS (24.3-36.9) 09/26/24 16:35 Sodium 143 mEq/L (136-145) 10/05/24 05:20 Potassium 4.5 mEq/L (3.5-5.1) 10/05/24 05:20 BUN 28 mg/dL (7-18) H 10/05/24 05:20 Creatinine 2.22 mg/dL (0.70-1.30) H 10/05/24 05:20 Glucose 86 mg/dL (74-106) 10/05/24 05:20 Uric Acid 6.5 mg/dL (3.5-7.2) 10/05/24 05:20 Phosphorus 2.6 mg/dL (2.5-4.9) 10/02/24 06:45 Magnesium 2.0 mg/dL (1.6-2.4) 10/05/24 05:20 Total Bilirubin 0.2 mg/dL (0.2-1.0) 09/26/24 16:35 AST 19 U/L (15-37) 09/26/24 16:35 ALT 18 U/L (16-61) 09/26/24 16:35 Alkaline Phosphatase 80 U/L (45-117) 09/26/24 16:35 Triglycerides 79 mg/dL (<150) 09/27/24 04:38 Cholesterol 118 mg/dL (<200) 09/27/24 04:38 HDL Cholesterol 52 mg/dL (40-60) 09/27/24 04:38 Cholesterol/HDL Ratio 2.27 09/27/24 04:38 Home Medications: Gabapentin 300 mg PO TID 09/27/24 Amlodipine [Norvasc*] 10 mg PO DAILY #30 tab 10/05/24 Collagenase [Santyl Ointment*] 1 appl TOP DAILY #1 tube 10/05/24 Docusate [Colace Cap*] 100 mg PO BID #30 cap 10/05/24 Hydrocodone 7.5/APAP 325 [[place] 7.5/325 mg*] 1 tab PO Q4H PRN #20 tab 10/05/24 Na Bicarb Tab [Sodium Bicarb 325 MG Tab*] 325 mg PO BID #60 tab 10/05/24 carvediloL [Coreg*] 6.25 mg PO BID 6AM 6PM #60 tab 10/05/24 New Medications: Docusate [Colace Cap*] 100 mg PO BID #30 cap carvediloL [Coreg*] 6.25 mg PO BID 6AM 6PM #60 tab Hydrocodone 7.5/APAP 325 [[place] 7.5/325 mg*] 1 tab PO Q4H PRN #20 tab PRN Reason: Pain Scale 5-7 (Moderate) Amlodipine [Norvasc*] 10 mg PO DAILY #30 tab Collagenase [Santyl Ointment*] 1 appl TOP DAILY #1 tube Na Bicarb Tab [Sodium Bicarb 325 MG Tab*] 325 mg PO BID #60 tab Diet: AHA Activity: Fall precautions Followup: Gume Lopez DO [ACTIVE - CAN ADMIT] - 1-2 Weeks Fermin Coombs MD [ACTIVE - CAN ADMIT] - 1-2 Weeks ERNA HICKS [Primary Care Provider] - 1-2 Weeks Time spent managing pt's care (in minutes): 42
[2024-10-05 10:44] VITALS: O2SAT 100
[2024-10-05 10:47] LABS: MA/CREAT RATIO 2484.2 (< 30.0); UR PROTEIN 819.3 mg/dL (<11.9); Urine Protein/Creatinine Ratio 4.31 ratio (<0.15)
[2024-10-05] MEDS ORDERED: ERTAPENEM SODIUM 1 GM VIAL IVPB ONE (13:58)
[2024-10-05 16:07] VITALS: BP 144/60; TEMP 97.8
[2024-10-05] MEDS: ERTAPENEM NA 1 GM in NA CHLORIDE 0.9% 100 ML IVPB SCH (16:39)
--- NOTE | 2024-10-05 16:54 | PN ---
Subjective: Patient lying in bed. No new acute event. Chart reviewed. Objective: Vital Signs: Temperature 98, pulse 66, respirations 16, blood pressure 183/90. Lungs: Basal crackles. Heart: S1, S2. Regular. Abdomen: Soft, nontender. Bowel sounds present. Extremities: Wound noted with wound VAC in place. Laboratory Data: Shows WBC 6.4, hemoglobin 8.3, platelets 215. Chemistry shows BUN of 28, creatinin e 2.2. Currently, patient on Cipro IV. Wound cultures are growing E coli, ESBL, Staph aureus, and E nterococcus faecalis. Assessment And Plan: Osteomyelitis of foot, status post debridement. The patient is currently getti ng Cipro. We will recommend to add meropenem to his treatment plan as patient has Escherichia coli e xtended-spectrum beta-lactamase in his wound cultures. Monitor sugar and monitor signs of infection with WBC and fever trends. No other recommendation at this time. Keep leg elevated when possible. Wound care as per surgical team. NF/MODL Voice ID: [id number] Report ID: [id number]
--- NOTE | 2024-10-05 19:44 | P.PN ---
Date of Service: 10/05/24 Vital Signs Temp Pulse Resp BP Pulse Ox 97.8 F 68 16 144/60 H 97 10/05/24 16:00 10/05/24 16:00 10/05/24 16:52 10/05/24 16:00 10/05/24 16:52 Microbiology Results 09/26/24 16:35 Wound - Left Foot Gram Stain - Final 09/26/24 16:35 Wound - Left Foot Culture & Sensitivity - Final Escherichia Coli Esbl Staph Aureus Enterococcus Faecalis 09/26/24 16:25 Blood - Blood Aerobic Blood Culture - Final No growth in 5 days. 09/26/24 16:25 Blood - Blood Anaerobic Blood Culture - Final No growth in 5 days. 09/26/24 16:35 Blood - Blood Aerobic Blood Culture - Final No growth in 5 days. 09/26/24 16:35 Blood - Blood Anaerobic Blood Culture - Final No growth in 5 days. 09/26/24 18:17 Clean Catch Urine [place] Count - Final >100,000 CFU/ML. 09/26/24 18:17 Clean Catch Urine - Final Escherichia Coli Assessment/ Plan: Nephrology No dyspnea No chest pain No acute events overnight Vitals, medications, blood work and imaging reviewed in the chart General: In no apparent distress, Cooperative, Obese HEENT: Atraumatic Neck: Supple Respiratory: Clear to auscultation bilaterally, Normal air movement Cardiovascular: Regular rate/rhythm, Edema Gastrointestinal: Soft and benign, Non-distended Musculoskeletal: No clubbing, No contractures Integumentary: No cyanosis, Diabetic ulcer (Left foot) Neurological: Normal speech Blood work reviewed in the chart. Imagings Data: EXAM: Chest Single View HISTORY: PICC line insertion COMPARISON: 01/03/2024 FINDINGS: LUNGS/PLEURA: Pulmonary vascular congestion. MEDIASTINUM: The mediastinal silhouette is within normal limits. CARDIAC: Stable size and configuration. UPPER ABDOMEN: No significant abnormality. BONES: No acute abnormality. LINES/TUBES/OTHER: Right subclavian approach PICC with tip at the distal SVC. IMPRESSION: 1. PICC tip overlies the SVC is in satisfactory position. 2. Pulmonary vascular congestion. EXAM: Foot Left Wo Cont HISTORY: Foot pain. Swelling. Osteomyelitis COMPARISON: December 2023 MRI TECHNIQUE: Axial, sagittal and coronal magnetic resonance imaging of the left foot obtained FINDINGS: Resection portion of the fifth metatarsal. Abnormal signal involves almost all of the fourth metatarsal and fourth proximal phalanx. Abnormal signal involves fourth middle phalanx. Abnormal signal involves second proximal phalanx. Periosteal deposition second and third metatarsals. 2 cm abscess lateral forefoot. 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 Montano Hospitalist note reviewed
--- NOTE | 2024-10-06 12:39 | CON ---
Date of Consultation: 09/29/2024 History Of Present Illness: Patient is a 49-year-old male, well known to me from previous osteomyeli tis and foot infection and diabetes mellitus and diabetic neuropathy. The patient is coming in with osteomyelitis and diabetic foot ulcer which has been debrided by the surgical team. The patient has agreed to go for 6 weeks of IV antibiotic as he does not want any more amputation, at this point. Past Medical History: Includes diabetes mellitus, diabetic neuropathy, morbid obesity. Social History: Nonsmoker. Nondrinker. Family History: Noncontributory. Medications: Cipro. Allergies: NO KNOWN DRUG ALLERGIES. Review of Systems: A 10-point review was performed. Physical Examination: General: This is a 49-year-old male, lying in bed, not in any acute cardiopulmonary distress. Vital Signs: Reviewed. HEENT: Unremarkable. Neck: Supple. Lungs: Clear to auscultation. Heart: S1, S2. Regular. Abdomen: Soft, nontender. Bowel sounds present. Extremities: Trace edema. Left foot wound noted. Laboratory Data: Reviewed. Assessment And Plan: Osteomyelitis of the left foot in a 49-year-old male with diabetes mellitus and diabetic neuropathy and peripheral vascular disease. He is status post surgical debridement of absc ess. Continue IV antibiotic and supportive care. Continue to monitor blood sugar and nutritional perez pport. Anemia of chronic disease. Renal insufficiency. We will follow the patient closely. Thank you for consult. TREVOR/AYANA Voice ID: [id number] Report ID: [id number]
[2024-10-08 05:08] LABS: Anti-Nuclear Antibody Screen Negative (Negative)
[2024-10-08 06:20] LABS: Abnormal Protein Band 1 0.4 g/dL; Albumin, (SPE) 2.2 g/dL (3.8-4.8); Alpha-1-Globulins 0.3 g/dL (0.2-0.3); Alpha-2-Globulins 0.7 g/dL (0.5-0.9); Beta 1 Globulin 0.4 g/dL (0.4-0.6); Gamma Globulins 1.2 g/dL (0.8-1.7); INTERPRETATION REPORT; Total Protein 5.1 g/dL (6.1-8.1)
== END 2024-10-05 17:49 | disposition home health service (06) | DRG 982 ==
LOC: ER 15:20 → ERHOLD 18:19 → 4TH 09-27 13:25
PROVIDERS: ADMIT Internal Medicine; ATTEND Internal Medicine
PROC: 0QBP0ZZ Excision of Left Metatarsal, Open Approach (ICD-10-PCS; 2024-09-28)
PROC: 02HV33Z Insertion of Infusion Device into Superior Vena Cava, Percutaneous Approach (ICD-10-PCS; 2024-09-28)
PROC: 0QBR0ZZ Excision of Left Toe Phalanx, Open Approach (ICD-10-PCS; principal; 2024-09-28 10:45)
DX: E11.52 Type 2 diabetes mellitus with diabetic peripheral angiopathy with gangrene (principal); E87.20 Acidosis, unspecified; L02.612 Cutaneous abscess of left foot; L03.116 Cellulitis of left lower limb; M86.172 Other acute osteomyelitis, left ankle and foot; N17.9 Acute kidney failure, unspecified; N30.00 Acute cystitis without hematuria; Z16.12 Extended spectrum beta lactamase (ESBL) resistance; E11.69 Type 2 diabetes mellitus with other specified complication; E11.42 Type 2 diabetes mellitus with diabetic polyneuropathy; E11.621 Type 2 diabetes mellitus with foot ulcer; L97.529 Non-pressure chronic ulcer of other part of left foot with unspecified severity; I12.9 Hypertensive chronic kidney disease with stage 1 through stage 4 chronic kidney disease, or unspecified chronic kidney disease; N18.30 Chronic kidney disease, stage 3 unspecified; E11.22 Type 2 diabetes mellitus with diabetic chronic kidney disease; D63.1 Anemia in chronic kidney disease; E66.3 Overweight; E78.5 Hyperlipidemia, unspecified; E66.01 Morbid (severe) obesity due to excess calories; E88.09 Other disorders of plasma-protein metabolism, not elsewhere classified; S91.312A Laceration without foreign body, left foot, initial encounter; B96.20 Unspecified Escherichia coli [E. coli] as the cause of diseases classified elsewhere; B95.2 Enterococcus as the cause of diseases classified elsewhere; B95.61 Methicillin susceptible Staphylococcus aureus infection as the cause of diseases classified elsewhere; Z98.84 Bariatric surgery status; Z68.39 Body mass index [BMI] 39.0-39.9, adult; Z79.02 Long term (current) use of antithrombotics/antiplatelets; Z90.49 Acquired absence of other specified parts of digestive tract; Z79.899 Other long term (current) drug therapy; Z89.422 Acquired absence of other left toe(s)
CPT/HCPCS: 36415; 71045; 80048; 80053; 80061; 80069; 80202; 81001; 82043; 82570; 82607; 82947; 83540; 83605; 83735; 83880; 84156; 84165; 84466; 84550; 85025; 85027; 85610; 85730; 86038; 86140; 86706; 86803; 87040; 87070; 87075; 87077; 87086; 87088; 87176; 87186; 87205; 87340; 88304; 93005; 93926; 93971; 96365; 96375; 97161; 99285; J0612; J0744; J1171; J1335; J1644; J2003; J2185; J2250; J2405; J2704; J3010; J3590; J7030; J7040; J7050; J7120

== ENCOUNTER 2024-12-16 14:38 | Emergency (ER) | payer BC ==
--- OUTSIDE RECORDS SUMMARY | 2024-12-16 14:41 | XMS REPORT | Continuity of Care Document ---
Author Name Unknown Address [address] [facility] [place] [address] [facility] Address [address] [facility] [facility] [place] [address] Care Team Providers Care Radiation Control Specialist Name Role Phone Allan SANDERS, Carolyn Primary Care Physician [phone] SYLVIA SALAZAR Attending Clinician Unava ilable Medications Ordered Medication Name Filled Medication Name Start Date Stop Date Current Medication? Ordering Clinician Indication Dosage Frequency Signature (SIG) Comments Components Source rosuvastati n 5 mg tablet -25 00:00: 00 Yes 1mg Josh Kelsey carvedilol 6.25 mg tablet 2-10 00:00: 00 Yes mg Josh Kelsey sodium bicarbonate 325 mg tablet 2-10 00:00: 00 Yes mg Josh Kelsey amlodipine 10 mg tablet -10 00:00: 00 Yes mg Josh Kelsey hydrocodone 7.5 mg-acetamin ophen 325 mg tablet 2-10 00:00: 00 Yes mg Josh Kelsey docusate sodium 100 mg capsule 2-10 00:00: 00 Yes mg Josh Kelsey gabapentin 600 mg tablet - 00:00: 00 Yes 1mg Josh Kelsey gabapentin 300 mg capsule 2023-0 5-29 00:00: 00 Yes 1mg Josh Kelsey carvedilol 6.25 mg tablet -15 00:00: 00 Yes mg Josh Kelsey amlodipine [...] Name Observation Time Observation Value Comments S kristen BP Systolic 2024-11-24 14:48:00 147 mm[Hg] Step hen F Lwo BP Diastolic 2024-11-24 14:48:00 84 mm[Hg] Barrett phen F Low Weight Measured 2024-11-24 14:48:00 286.00 pounds Josh Job Kelsey Height Measured 2024-11-24 14:48:00 68.00 inches Josh Kelsey Body Temperature 2024-11-24 14:48:00 98.40 degrees Josh F Low Heart Rate 2024-11-24 14:48:00 108.00 /min Step hen F Low Respiratory Rate 2024-11-24 14:48:00 18.00 /min Josh F Low BP Systolic 2024-11-10 15:03:00 175 mm[Hg] Step hen F Low BP Diastolic 2024-11-10 15:03:00 88 mm[Hg] Barrett phen F Low Weight Measured 2024-11-10 15:03:00 285.00 pounds Josh F Low Height Measured 2024-11-10 15:03:00 68.00 inches Josh Job Kelsey Body Temperature 2024-11-10 15:03:00 99.00 degrees Josh F Low Heart Rate 2024-11-10 15:03:00 82.00 /min Candice en F Low Respiratory Rate 2024-11-10 15:03:00 16.00 /min Josh F Low BP Systolic 2024-11-10 14:22:00 175 mm[Hg] Step hen F Low BP Diastolic 2024-11-10 14:22:00 88 mm[Hg] Barrett phen F Low Weight Measured 2024-11-10 14:22:00 285.00 pounds Josh F Low Height Measured 2024-11-10 14:22:00 68.00 inches Josh F Low Body Temperature 2024-11-10 14:22:00 99.00 degrees Josh F Low Heart Rate 2024-11-10 14:22:00 82.00 /min Candice en F Low Respiratory Rate 2024-11-10 14:22:00 16.00 /min Josh F Low BP Systolic 2024-10-27 15:00:00 139 mm[Hg] Step hen F Low BP Diastolic 2024-10-27 15:00:00 73 mm[Hg] Barrett phen F Low Weight Measured 2024-10-27 15:00:00 286.00 pounds Josh F Low Height Measured 2024-10-27 15:00:00 68.00 inches Josh F Low Body Temperature 2024-10-27 15:00:00 98.50 degrees Josh F Low Heart Rate 2024-10-27 15:00:00 88.00 /min Candice en F Low Respiratory Rate 2024-10-27 15:00:00 16.00 /min Josh F Low BP Systolic 2024-10-13 13:34:00 158 mm[Hg] Step hen F Low BP Diastolic 2024-10-13 13:34:00 90 mm[Hg] Barrett phen F Low Weight Measured 2024-10-13 13:34:00 282.00 pounds Josh F Low Height Measured 2024-10-13 13:34:00 68.00 inches Josh F Low Body Temperature 2024-10-13 13:34:00 97.30 degrees Josh F Low Heart Rate 2024-10-13 13:34:00 90.00 /min Candice en F Low Respiratory Rate 2024-10-13 13:34:00 18.00 /min Josh F Low BP Systolic 2024-02-11 14:02:00 150 mm[Hg] Step hen F Low BP Diastolic 2024-02-11 14:02:00 78 mm[Hg] Barrett phen F Low Weight Measured 2024-02-11 14:02:00 272.00 pounds Josh F Low Height Measured 2024-02-11 14:02:00 68.00 inches Josh F Low Body Temperature 2024-02-11 14:02:00 97.80 degrees Josh Kelsey Heart Rate 2024-02-11 14:02:00 87.00 /min Candice en F Low Respiratory Rate 2024-02-11 14:02:00 18.00 /min Josh F Low BP Systolic 2024-01-22 14:12:00 138 mm[Hg] Step hen F Low BP Diastolic 2024-01-22 14:12:00 80 mm[Hg] Barrett phen F Low Weight Measured 2024-01-22 14:12:00 265.00 pounds Josh Kelsey Height Measured 2024-01-22 14:12:00 68.00 inches Josh Kelsey Body Temperature 2024-01-22 14:12:00 97.80 degrees Josh F Low Heart Rate 2024-01-22 14:12:00 87.00 /min Candice en F Low Respiratory Rate 2024-01-22 14:12:00 18.00 /min Josh F Low Body Temperature 2024-01-10 14:50:00 98.20 degrees Joshoma Kelsey Heart Rate 2024-01-10 14:50:00 82.00 /min Candice en F Low Respiratory Rate 2024-01-10 14:50:00 18.00 /min Joshoma Kelsey BP Systolic 2024-01-10 14:50:00 150 mm[Hg] Step hen F Low BP Diastolic 2024-01-10 14:50:00 80 mm[Hg] Barrett phen F Low Weight Measured 2024-01-10 14:50:00 266.00 pounds Josh Kelsey Height Measured 2024-01-10 14:50:00 68.00 inches Josh Kelsey Encounters Start Date/Time End Date/Time Encounter Type Admission Type Attending [facility] Care Department Encounter ID Source 2024-11-24 14:30:31 2024-11-24 14:30:31 Outpatient SFA SFA [id number] Josh Kelsey 2024-11-24 00:00:00 2024-11-24 00:00:00 Outpatient Visit SFA [id number] Josh Kelsey 2024-11-10 14:14:05 2024-11-10 14:14:05 Outpatient SFA SFA [id number] Josh Kelsey 2024-11-10 00:00:00 2024-11-10 00:00:00 Outpatient Visit SFA [id number] Josh Kelsey 2024-10-27 14:55:02 2024-10-27 14:55:02 Outpatient SFA SFA [id number] Josh Kelsey 2024-10-27 00:00:00 2024-10-27 00:00:00 Outpatient Visit SFA [id number] Josh Kelsey 2024-10-13 13:20:24 2024-10-13 13:20:24 Outpatient SFA SFA [id number] Josh Kelsey 2024-10-13 00:00:00 2024-10-13 00:00:00 Outpatient Visit SFA [id number] Josh Kelsey 2024-02-11 13:58:25 2024-02-11 13:58:25 Outpatient SFA SFA [id number] oJsh Kelsey 2024-02-11 00:00:00 2024-02-11 00:00:00 Outpatient Visit SFA [id number] Josh Kelsey 2024-01-22 14:07:18 2024-01-22 14:07:18 Outpatient SFA SFA [id number] Josh Kelsey 2024-01-22 00:00:00 2024-01-22 00:00:00 Outpatient Visit SFA [id number] Josh Kelsey 2024-01-10 15:06:38 2024-01-10 15:06:38 Outpatient SFA SFA [id number] Josh Kelsey 2024-01-10 00:00:00 2024-01-10 00:00:00 Outpatient Visit [facility] [id number] Josh Kelsey 2021-12-11 05:16:00 2021-12-11 11:53:00 Emergency E ALCANTER, SYLVIA MHBL MHBL [id number] [facility]BL Notes Date/Time Note Provider Source [facility]2025-03-18 00:00:00 [facility]2025-03-04 00:00:00 [facility]2025-02-18 00:00:00 [facility]2024-06-18 00:00:00 [facility]2024-05-29 00:00:00 [facility]2024-05-17 00:00:00 [facility]
[2024-12-16] MEDS ORDERED: KETOROLAC 30 MG/ML INJ ONE (15:26)
[2024-12-16] MEDS ORDERED: COLCHICINE 0.6 MG TAB ONE (15:27)
--- NOTE | 2024-12-16 15:28 | RAD REPORT ---
EXAMINATION: Wrist Left 3 View VIEWS: Three views CLINICAL INDICATION: Male, 49 years old. PAIN COMPARISON: No prior exam. IMPRESSION: No acute fracture. Ulnar minus variance. Alignment is otherwise normal. No significant focal degenerative changes. Peripheral vascular calcifications.
--- NOTE | 2024-12-16 16:06 | RAD REPORT ---
EXAMINATION: UPPER EXTREMITY VENOUS UNILATE CLINICAL INDICATION: Male, 49 years old.PAIN TECHNIQUE: Multiplanar grayscale and color Doppler images were obtained in a upper extremity venous ultrasound. Spectral analysis of the Doppler waveforms were performed. COMPARISON: No prior exams FINDINGS: The internal jugular vein, subclavian vein, axillary vein, basilic vein, brachial vein, cephalic vein , radial vein, and ulnar vein were evaluated and patent. The brachial vein, cephalic vein, radial vein, and ulnar veins were compressible and patent. IMPRESSION: No evidence of deep venous thrombosis in the left upper extremity.
--- NOTE | 2024-12-16 16:13 | ER ---
Nurse's Notes [facility] Name: Liu Boo Jr Age: 49 yrs Sex: Male : 1975 Arrival Date: 12/16/2024 Time: 14:38 Bed 12 Private MD: Diagnosis: Pain in left wrist Presentation: 12/16 15:11 Chief complaint: Patient states: left wrist pain since Saturday, is currently on iv abx iw for a foot infection. Coronavirus screen: At this time, the client does not indicate any symptoms associated with coronavirus-19. Ebola Screen: No symptoms or risks identified at this time. Initial Sepsis Screen: Does the patient meet any 2 criteria? No. Patient's initial sepsis screen is negative. Does the patient have a suspected source of infection? No. Patient's initial sepsis screen is negative. Risk Assessment: Do you want to hurt yourself or someone else? Patient reports no desire to harm self or others. Onset of symptoms was December 14, 2024. 15:11 Method Of Arrival: Ambulatory iw 15:11 Acuity: LUZ MARINA 4 iw Historical: - Allergies: 15:12 No Known Allergies; iw - PMHx: 15:12 Diabetes - NIDDM; iw - PSHx: 15:12 Cholecystectomy; gastric sleeve; iw - Immunization history:: Adult Immunizations not up to date, Client reports receiving the 2nd dose of the Covid vaccine. - Infectious Disease History:: Denies. - Social history:: Smoking status: Patient denies any tobacco usage or history of. Screenin:15 [facility] ED Fall Risk Assessment (Adult) History of falling in the last 3 months, kj2 including since admission No falls in past 3 months (0 pts) Confusion or Disorientation No (0 pts) Intoxicated or Sedated No (0 pts) Impaired Gait No (0 pts) Mobility Assist Device Used No (0 pt) Altered Elimination No (0 pt) Score/Fall Risk Level 0 - 2 = Low Risk Maintained a safe environment, Hourly rounding (assess needs \T\ fall precautionary measures) done. Abuse screen: Denies threats or abuse. Denies injuries from another. Nutritional screening: No deficits noted. Tuberculosis screening: No symptoms or risk factors identified. Assessment: 15:15 General: Appears in no apparent distress. Behavior is calm, cooperative. Pain: kj2 Complains of pain in left arm and left wrist Pain currently is 7 out of 10 on a pain scale. Neuro: Level of Consciousness is awake, alert, obeys commands, Oriented to person, place, time, situation. Cardiovascular: Patient's skin is warm and dry. Respiratory: Airway is patent Respiratory effort is even, unlabored. GI: No signs and/or symptoms were reported involving the gastrointestinal system. : No signs and/or symptoms were reported regarding the genitourinary system. 16:22 Reassessment: Patient appears in no apparent distress at this time. Patient and/or kj2 family updated on plan of care and expected duration. Pain level reassessed. Patient is alert, oriented x 3, equal unlabored respirations, skin warm/dry/pink. Vital Signs: 15:11 BP 154 / 84; Pulse 109; Resp 19; Temp 99.7; Pulse Ox 100% on R/A; Weight 123.38 kg; iw Height 5 ft. 10 in. ; Pain 8/10; 16:22 BP 144 / 82; Pulse 98; Resp 20; Temp 98.4; Pulse Ox 100% on R/A; kj2 15:11 Body Mass Index 39.03 (123.38 kg, 177.8 cm) iw 15:11 Pain Scale: Adult iw ED Course: 14:42 Patient arrived in ED. al6 14:43 Neg[facility] Redd [facility]-C [facility]. kb 14:44 Emanuel Shaffer MD is Attending Physician. kb 15:10 Chantel Vega, RICK is Primary Nurse. iw 15:12 Triage completed. iw 15:12 Arm band placed on. iw 15:15 Patient has correct armband on for positive identification. Bed in low position. Call kj2 light in reach. Adult w/ patient. Provided Education on: call light. 15:15 IV is patent, is intact, with fluids infusing freely, with good blood return, patient kj2 already has a PICC in place on right arm. 15:22 Julianna Gibson, RICK is Primary Nurse. kj2 15:24 Wrist Left (3 View) XRAY In Process Unspecified. EDMS 16:00 UPPER EXTREMITY VENOUS UNILATE In Process Unspecified. EDMS 16:19 Velcro wrist splint applied to left wrist. ty 16:22 No provider procedures requiring assistance completed. kj2 Administered Medications: 15:35 Drug: Colcrys PO 1.2 mg PO once Route: PO; kj2 16:13 Follow up: Response: No adverse reaction kj2 15:35 Drug: Ketorolac IVP 15 mg IVP once Route: IVP; Site: PICC; kj2 16:13 Follow up: Response: No adverse reaction kj2 Medication: 15:39 VIS not applicable for this client. kj2 Outcome: 16:13 Discharge ordered by . lupis 16:24 Discharged to home via wheelchair, kj2 16:24 Condition: stable 16:24 Discharge instructions given to patient, family, Instructed on discharge instructions, follow up and referral plans. Demonstrated understanding of instructions, follow-up care, 16:36 Patient left the ED. kj2 Signatures: Dispatcher [employer] EDNegra Schaefer, FIDE GONSALVES-Chantel Walker, RN RICK iw Lc Celaya Krystal, RN RN kj2 Shayla Siu6
--- NOTE | 2024-12-16 16:13 | EDPHYS ---
Physician Documentation [facility] Name: Liu Boo Jr Age: 49 yrs Sex: Male : 1975 Arrival Date: 12/16/2024 Time: 14:38 Bed 12 Private MD: ED Physician Emanuel Shaffer HPI: 12/16 15:04 This 49 yrs old Male presents to ER via Unassigned with complaints of Hand kb Swelling. 15:04 Pt is a 49 year old male who presents for left wrist pain and swelling that started 4 kb days ago. States he was lifting a heavy grill lid several times throughout the day so he thinks that may be the cause. States he had some blood drawn from that area on Saturday by home health nurse as well so isn't sure if that was part of the cause. Denies fever. Pt currently on entrapenem for wound to LLE. Historical: - Allergies: 15:12 No Known Allergies; iw - PMHx: 15:12 Diabetes - NIDDM; iw - PSHx: 15:12 Cholecystectomy; gastric sleeve; iw - Immunization history:: Adult Immunizations not up to date, Client reports receiving the 2nd dose of the Covid vaccine. - Infectious Disease History:: Denies. - Social history:: Smoking status: Patient denies any tobacco usage or history of. ROS: 15:06 Constitutional: As per HPI kb Exam: 15:08 Constitutional: This is a well developed, well nourished patient who is awake, alert, kb and in no acute distress. Head/Face: Normocephalic, atraumatic. ENT: Moist Mucous membranes Cardiovascular: Regular rate Respiratory: Respirations even and unlabored. No increased work of breathing. Talking in full sentences Skin: Warm, dry with normal turgor. Normal color. Neuro: Awake and alert, GCS 15, oriented to person, place, time, and situation. 15:08 Musculoskeletal/extremity: Extremities: grossly normal except: noted in the left wrist: pain, swelling, tenderness, ROM: limited active range of motion due to pain, Circulation is intact in all extremities. Sensation intact. Vital Signs: 15:11 BP 154 / 84; Pulse 109; Resp 19; Temp 99.7; Pulse Ox 100% on R/A; Weight 123.38 kg; iw Height 5 ft. 10 in. ; Pain 8/10; 16:22 BP 144 / 82; Pulse 98; Resp 20; Temp 98.4; Pulse Ox 100% on R/A; kj2 15:11 Body Mass Index 39.03 (123.38 kg, 177.8 cm) iw 15:11 Pain Scale: Adult iw MDM: 14:44 Medical Screening Exam initiated kb 16:10 Data reviewed: vital signs, nurses notes. kb 16:11 Differential diagnosis: closed fracture, sprain, dvt, gout. Historians other than the kb Patient: Spouse/Significant Other: significant other. Counseling: I had a detailed discussion with the patient and/or guardian regarding the historical points, exam findings, and any diagnostic results supporting the discharge/admit diagnosis, radiology results, the need for outpatient follow up, a family practitioner, a orthopedic surgeon, to return to the emergency department if symptoms worsen or persist or if there are any questions or concerns that arise at home. 12/16 15:08 Order name: Wrist Left (3 View) XRAY; Complete Time: 15:30 kb 12/16 15:19 Order name: UPPER EXTREMITY VENOUS UNILATE; Complete Time: 16:08 EDMS 12/16 16:11 Order name: Wrist Splint; Complete Time: 16:19 kb Administered Medications: 15:35 Drug: Colcrys PO 1.2 mg PO once Route: PO; kj2 16:13 Follow up: Response: No adverse reaction kj2 15:35 Drug: Ketorolac IVP 15 mg IVP once Route: IVP; Site: PICC; kj2 16:13 Follow up: Response: No adverse reaction kj2 Disposition Summary: 12/16/24 16:13 Discharge Ordered Notes: Location: Home kb Condition: Stable kb Diagnosis - Pain in left wrist kb Followup: kb - With: Emergency Department - When: As needed - Reason: Worsening of condition Followup: kb - With: Private Physician - When: 2 - 3 days - Reason: Recheck today's complaints, Continuance of care, Re-evaluation by your physician Discharge Instructions: - Discharge Summary Sheet kb - Wrist Pain, Adult, Feek-xm-Dvoy kb Forms: - Medication Reconciliation Form kb - Antibiotic Education kb - Prescription Opioid Use kb - Patient Portal Instructions kb - Leadership Thank You Letter kb Prescriptions: - Diclofenac Sodium 75 mg Oral tablet, delayed release (enteric coated) - take 1 tablet ORAL route 2 times per day As needed; 30 tablet; Refills: 0, kb Product Selection Permitted Addendum: 12/18/2024 15:42 Co-signature as Attending Physician, Emanuel Shaffer MD I agree with the assessment and c marx plan of care. Signatures: Dispatcher [employer] Negra Carney, MAJOR-C MAJOR-Emanuel Laguna MD MD cha Williams, Irene, RN RN iw Julianna Gibson RN RN kj2 Corrections: (The following items were deleted from the chart) 12/16 15:08 15:04 Pt is a 49 year old male who presents for left wrist pain and swelling that kb started 4 days ago. States he was lifting a heavy grill lid several times throughout the day so he thinks that may be the cause. States he had some blood drawn from that area on Saturday by home health nurse as well so isn't sure if that was part of the cause. Denies fever. . kb 15:19 15:08 Extremity Venous Uni [email or web address] ordered. EDIN EDMS
[2024-12-16 17:26] VITALS: O2SAT 100
[2024-12-16 17:28] VITALS: BP 154/84; TEMP 99.7
== END 2024-12-16 16:36 | disposition home or self-care (01) ==
LOC: ER 14:38
DX: M25.532 Pain in left wrist (principal)
CPT/HCPCS: 93971; 96374; 99284